=== PATIENT | male | born 1980 | race Caucasian/White ===

== ENCOUNTER 2016-05-09 00:28 | Inpatient (IN) | payer OTHER ==
--- NOTE | 2016-05-09 00:56 | HP ---
COWS - Scale Resting Pulse: 0= [place] 80 or Below Sweatin=Flushed/Facial Moisture Restless Observation: 5= Unable to Sit Still Pupil Size: 1= Pupils >than Normal Bone or Joint Aches: 4=Acute Joint/Muscle Pain Runny Nose/ Eye Tearin= Nasal Congestion GI Upset > 30mins: 0= None Tremor Observation: 2= Slight Tremor Visible Yawning Observation: 0= None Anxiety or Irritability: 4=Extreme Anxiety Goose Flesh Skin: 0=Smooth Skin COWS Score: 19 CIWA Score - CIWA Score Nausea/Vomitin-No Nausea/No Vomiting Muscle Tremors: 3 Anxiety: 6 Agitation: 6 Paroxysmal Sweats: 1-Minimal Palms Moist Orientation: 1-Uncertain about Date Tacttile Disturbances: 0-None Auditory Disturbances: 0-None Visual Disturbances: 0-None Headache: 0-None Present CIWA-Ar Total Score: 17 Admission ROS BHS - HPI Chief Complaint: C/O WITHDRAWAL SX'S. SEEKING DETOX TXMENT Allergies/Adverse Reactions: Allergies Allergy/AdvReac Type Severity Reaction Status Date / Time No Known Allergies Allergy Verified 05/09/16 00:51 History of Present Illness: 35 Y.O. MALE WITH H/O POLYSUBSTANCE ABUSE ADMITTED TO DETOX FOR ALCOHOLISM, OPI , BZO. CLIENT IS KNOWN TO [facility]. REPORTS LONGEST LONGEST CLEAN TIME 1 YEAR. Exam Limitations: No Limitations - Ebola screening Have you traveled outside of the country in the last 21 days: No Have you had contact with anyone from an Ebola affected area: No Have you been sick,other than usual withdrawal symptoms: No Do you have a fever: No - Review of Systems Constitutional: Chills, Loss of Appetite, Malaise, Night Sweats, Changes in sleep, Unintentional Wgt. Loss EENT: reports: Nose Congestion Respiratory: reports: No Symptoms reported Cardiac: reports: No Symptoms Reported GI: reports: Poor Appetite : reports: No Symptoms Reported Musculoskeletal: reports: Back Pain, Joint Pain, Muscle Pain Integumentary: reports: No Symptoms Reported Neuro: reports: No Symptoms reported Endocrine: reports: No Symptoms Reported Hematology: reports: No Symptoms Reported Psychiatric: reports: Anxious Other Systems: Reviewed and Negative Patient History - Patient Medical History Hx Anemia: No Hx Asthma: No Hx Chronic Obstructive Pulmonary Disease (COPD): No Hx Cancer: No Hx Cardiac Disorders: No Hx Congestive Heart Failure: No Hx Hypertension: Yes (no compliant) Hx Hypercholesterolemia: No Hx Pacemaker: No HX Cerebrovascular Accident: No Hx Seizures: No Hx Dementia: No Hx Diabetes: No Hx Gastrointestinal Disorders: Yes (GERD) Hx Liver Disease: No Hx Genitourinary Disorders: No Hx Sexually Transmitted Disorders: No Hx Renal Disease (ESRD): No Hx Thyroid Disease: No Hx Human Immunodeficiency Virus (HIV): No Hx Hepatitis C: No Hx Depression: Yes Hx Suicide Attempt: No Hx Bipolar Disorder: No Hx Schizophrenia: No Other Medical History: ANXIETY, CHRONIC BACK PAIN AND JOINT PAIN - Patient Surgical History Past Surgical History: No Hx Neurologic Surgery: No Hx Cataract Extraction: No Hx Cardiac Surgery: No Hx Lung Surgery: No Hx Breast Surgery: No Hx Breast Biopsy: No Hx Abdominal Surgery: No Hx Appendectomy: No Hx Cholecystectomy: No Hx Genitourinary Surgery: No Hx Section: No Hx Orthopedic Surgery: No Anesthesia Reaction: No - PPD History Previous Implant?: Yes Documented Results: Negative w/o proof Implanted On Prior [facility] Admission?: No Date: 12/15/14 PPD to be Administered?: Yes - Smoking Cessation Smoking history: Current every day smoker Have you smoked in the past 12 months: Yes Aproximately how many cigarettes per day: 40 Hx Chewing Tobacco Use: No Initiated information on smoking cessation: Yes 'Breaking Loose' booklet given: 05/09/16 - Substance & Tx. History Hx Alcohol Use: Yes Hx Substance Use: Yes Substance Use Type: Heroin, Marijuana, Opiates (MTD), Tranquilizers (VALIUM) - Substances Abused LIQUOR/BEER Route: Oral Frequency: Daily Amount used: 2-6 PACKS Age of first use: 11 Date of Last Use: 05/07/16 HEROIN Route: Injection Frequency: Daily Amount used: 2 BUNDLES Age of first use: 27 Date of Last Use: 05/07/16 VALIUM Route: Oral Frequency: Daily Amount used: 4 MG Age of first use: 33 Date of Last Use: 05/07/16 THC Route: Smoking Frequency: Daily Amount used: 4 BLUNTS Age of first use: 11 Date of Last Use: 05/07/16 Family Disease History - Family Disease History Family History: Denies Admission Physical Exam BHS - Physical General Appearance: Yes: Appropriately Dressed, Mild Distress, Tremorous, Irritable, Anxious HEENTM: Yes: EOMI, Normocephalic, Normal Voice, LUC, Pharynx Normal, Other ( NASAL CONGESTION) Respiratory: Yes: Chest Non-Tender, Lungs Clear, Normal Breath Sounds, No Respiratory Distress, No Accessory Muscle Use Neck: Yes: No masses,lesions,Nodules, Supple, Trachea in good position Breast: Yes: Breast Exam Deferred Cardiology: Yes: Regular Rhythm, Regular Rate, S1, S2 Abdominal: Yes: Normal Bowel Sounds, Non Tender, Flat, Soft Genitourinary: Yes: Within Normal Limits Back: Yes: Normal Inspection Musculoskeletal: Yes: full range of Motion, Gait Steady Extremities: Yes: Normal Capillary Refill, Normal Range of Motion, Non-Tender, Tremors Neurological: Yes: casting machine adjuster II-XII NML intact, Alert, Motor Strength 5/5 Integumentary: Yes: Normal Color, Warm, Track [place] Lymphatic: Yes: Within Normal Limits - Diagnostic (1) Hypertension Current Visit: Yes Status: Chronic Qualifiers: Hypertension type: essential hypertension Qualified Code(s): I10 - Essential (primary) hypertension (2) Opioid dependence with withdrawal Current Visit: Yes Status: Chronic (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 Current Visit: Yes Status: Chronic (4) Chronic joint pain Current Visit: Yes Status: Chronic (5) Nicotine dependence Current Visit: Yes Status: Chronic Qualifiers: Nicotine product type: cigarettes Substance use status: uncomplicated Qualified Code(s): F17.210 - Nicotine dependence, cigarettes, uncomplicated (6) Cannabis dependence, uncomplicated Current Visit: Yes Status: Acute Cleared for Admission S - Detox or Rehab [facility] Level of Care: Medically Managed Detox Regimen/Protocol: Methadone/Valium S Breath Alcohol Content Breath Alcohol Content: 0 Vital Signs - Vital Signs Vital Signs Refused: No Temperature: 97.6 F Temperature Source: Oral Pulse Rate: 80 Respiratory Rate: 20 Blood Pressure: 135/84 BP Location: Left Arm Blood Pressure Position: Sitting - Height Height: 6 ft 3 in - Weight Weight: 119.748 kg Weight Measurement Method: Standing Scale Body Mass Index (BMI): 33.0 - Bowel Function Bowel Movement: No Urine Drug Screen - Test Device Lot Number: [id number] Expiration Date: 01/22/18 - Control Is Test Valid: Yes - Results Drug Screen Negative: No Urine Drug Screen Results: THC-Marijuana, OPI-Opiates, BZO-Benzodiazepines, MTD- Methadone, OXY-Oxycodone
[2016-05-09] MEDS ORDERED: P-EPHED 60MG/TRIPROLIDI 2.5MG TABLET PO PRN (01:12)
[2016-05-09] MEDS ORDERED: diazePAM 5 MG TABLET PO ONE (01:12)
[2016-05-09] MEDS ORDERED: ACETAMINOPHEN 325 MG TABLET (FP) PO PRN (01:12)
[2016-05-09] MEDS ORDERED: METHADONE HCL 10 MG TABLET (FOR DETOX USE ONLY) PO ONE ×3 (01:12→23:00)
[2016-05-09] MEDS ORDERED: LOPERAMIDE HCL 2 MG CAPSULE PO PRN (01:12)
[2016-05-09] MEDS ORDERED: guaiFENesin/D-METHORPHAN HB 10 ML UNIT-DOSE CUPS PO PRN (01:12)
[2016-05-09] MEDS ORDERED: MAGNESIUM HYDROX 2400MG/30ML ORAL SUSPENSION 30 ML CUP PO PRN (01:12)
[2016-05-09] MEDS ORDERED: MAGNESIUM CITRATE 300 ML BOTTLE PO PRN (01:12)
[2016-05-09] MEDS ORDERED: NICOTINE POLACRILEX 4 MG GUM BC PRN (01:12)
[2016-05-09] MEDS ORDERED: MAG HYDROX/AL HYDROX/SIMETH 30 ML UNIT-DOSE CUP PO PRN (01:12)
[2016-05-09] MEDS ORDERED: MENTHOL/PHENOL 1 EACH UD MM PRN (01:12)
[2016-05-09 01:13] VITALS: BMI 33.0
[2016-05-09] MEDS ORDERED: GABAPENTIN 400 MG CAPSULE (FP) PO SCH ×2 (01:30→06:00)
[2016-05-09] MEDS: GABAPENTIN 400 MG CAPSULE (FP) PO SCH ×4 (02:39→22:09)
[2016-05-09] MEDS: CYCLOBENZAPRINE HCL 10 MG TABLET (FP) PO PRN ×3 (05:14→22:09)
[2016-05-09] MEDS: diazePAM 5 MG TABLET PO SCH ×3 (05:14→22:08)
[2016-05-09] MEDS: cloNIDine HCL 0.1 MG TABLET PO PRN ×2 (05:14→13:26)
[2016-05-09] MEDS: PRENATAL VITAMINS W/ FOLIC ACID TABLET (FP) PO SCH (09:31)
[2016-05-09] MEDS: NICOTINE 21 MG/24 HOURS TOPICAL PATCH TD SCH (09:31)
[2016-05-09] MEDS: diazePAM 5 MG TABLET PO PRN ×2 (09:31→20:39)
[2016-05-09] MEDS: IBUPROFEN 400 MG TABLET (FP) PO PRN (10:19)
[2016-05-09 10:29] LABS: ALBUMIN 4.1 g/dl (3.4-5.0); ANION GAP 9 (8-16); CALCIUM 8.8 mg/dL (8.5-10.1); CO2 30 mmol/L (21-32); GLUCOSE,RANDOM 83 mg/dL (74-106); MCH 29.7 pg (25.7-33.7); MCHC 33.1 g/dl (32.0-35.9); MEAN CELL VOLUME 89.8 fl (80-96); MEAN PLT VOLUME 13.5 fl (7.5-11.1); PLATELET COUNT 97 K/MM3 (134-434); RDW 14.1 % (11.9-15.9); WHITE BLOOD COUNT 8.4 K/mm3 (4.0-10.0)
[2016-05-09 10:30] LABS: URINE APPEARANCE CLEAR; URINE BILIRUBIN NEGATIVE (NEGATIVE); URINE BLOOD NEGATIVE (NEGATIVE); URINE COLOR DKYELLOW; URINE GLUCOSE (UA) NEGATIVE (NEGATIVE); URINE KETONE NEGATIVE (NEGATIVE); URINE LEUK ESTERASE NEGATIVE (NEGATIVE); URINE NITRITE NEGATIVE (NEGATIVE); URINE UROBILINOGEN NEGATIVE E.U./dl (0.2-1.0)
[2016-05-09 10:32] LABS: ALK PHOS 96 U/L (45-117); BILIRUBIN,TOTAL 0.5 mg/dL (0.2-1.0); CREATININE 0.8 mg/dL (0.7-1.3); SGOT/AST 23 U/L (15-37); SGPT/ALT 38 U/L (12-78); TOT PROT 7.1 g/dl (6.4-8.2)
[2016-05-09 10:32] LABS: URINE PROTEIN 1+ (NEGATIVE)
[2016-05-09 10:35] LABS: URINE BACTERIA RARE /hpf (NONE SEEN); URINE MUCUS MANY
[2016-05-09 11:12] LABS: HIV 1 & 2 AB NEGATIVE; HIV 1 AGp24 NEGATIVE
--- NOTE | 2016-05-09 11:24 | CONSULT ---
[facility] Psychiatric Consult - Data Date of interview: 05/09/16 Admission source: [facility] Identifying data: Readmission to [facility] for this 35 y/o male seeking detoxification treatment for heroin,marijuana and benzodiazepine (valium ) dependence.Patient is single,a father of one,domiciled,unemployed and dependent on relatives for financial support. Substance Abuse History: - Smoking Cessation. Smoking history: Current every day smoker. Have you smoked in the past 12 months: Yes. Aproximately how many cigarettes per day: 40. Hx Chewing Tobacco Use: No. Initiated information on smoking cessation: Yes. 'Breaking Loose' booklet given: 05/09/16. - Substance & Tx. History. Hx Alcohol Use: Yes. Hx Substance Use: Yes. Substance Use Type : Heroin, Marijuana, Opiates (MTD), Tranquilizers (VALIUM). - Substances Abused. LIQUOR/BEER. Route: Oral. Frequency: Daily. Amount used: 2-6 PACKS. Age of first use: 11. Date of Last Use: 05/07/16. HEROIN. Route: Injection. Frequency: Daily. Amount used: 2 BUNDLES. Age of first use: 27. Date of Last Use: 05/07/16. VALIUM. Route: Oral. Frequency: Daily. Amount used: 4 MG. Age of first use: 33. Date of Last Use: 05/07/16. THC. Route: Smoking. Frequency: Daily. Amount used: 4 BLUNTS. Age of first use: 11. Date of Last Use: 05/07/16. Confirmed by patient. Medical History: Hypertension. Psychiatric History: No history of psychiatric hospitalizations.Diagnosed with MDD,Bipolar Disorder.Started psychiatric treatment in 2006 during incarceration.Prescribed wellbutrin XL 450 mg/day (by a primary care doctor).Mr Garcia denies history of suicide attempts. Physical/Sexual Abuse/Trauma History: Patient denies. Additional Comment: Urine Drug Screen Results: THC-Marijuana, OPI-Opiates, BZO- Benzodiazepines, MTD-Methadone, OXY-Oxycodone Mental Status Exam - Mental Status Exam Alert and Oriented to: Time, Place, Person Cognitive Function: Good Patient Appearance: Well Groomed (obese) Mood: Irritable Affect: Mood Congruent Patient Behavior: Passive, Sedated, Fatigued, Cooperative (superficially) Speech Pattern: Delayed, Slurred Voice Loudness: Normal Thought Process: Goal Oriented Thought Disorder: Not Present Hallucinations: Denies Suicidal Ideation: Denies Homicidal Ideation: Denies Insight/Judgement: Poor Sleep: Fair Appetite: Good Muscle strength/Tone: Normal Gait/Station: Normal Psychiatric Findings - Problem List ([place] 1, 2,3) (1) Opioid dependence with withdrawal Current Visit: Yes Status: Chronic (2) Cannabis dependence, uncomplicated Current Visit: Yes Status: Acute (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 Current Visit: Yes Status: Chronic (4) Nicotine dependence Current Visit: Yes Status: Acute Qualifiers: Nicotine product type: cigarettes Substance use status: uncomplicated Qualified Code(s): F17.210 - Nicotine dependence, cigarettes, uncomplicated (5) Substance induced mood disorder Current Visit: Yes Status: Acute (6) Depressive disorder Current Visit: Yes Status: Chronic (7) Chronic joint pain Current Visit: Yes Status: Chronic (8) Hypertension Current Visit: Yes Status: Chronic Qualifiers: Hypertension type: essential hypertension Qualified Code(s): I10 - Essential (primary) hypertension - Initial Treatment Plan Initial Treatment Plan: Psychoeducation.Detoxification.Wellbutrin XL 450 mg po daily.Side effects/benefits discussed with the patient.Agreement given.Observation.Dose confirmed by review of pharmacy claims.
--- NOTE | 2016-05-09 14:16 | PN ---
S CIWA - CIWA Score Nausea/Vomitin-Mild Nausea/No Vomiting Muscle Tremors: 4-Moderate,w/Arms Extend Anxiety: 4-Mod. Anxious/Guarded Agitation: 3 Paroxysmal Sweats: 3 Orientation: 0-Oriented Tacttile Disturbances: 2-Mild Itch/Numbness/Burn Auditory Disturbances: 0-None Visual Disturbances: 2-Mild Sensitivity Headache: 0-None Present CIWA-Ar Total Score: 19 S COWS - Scale Resting Pulse: 1= [place] 81-100 Sweatin= Chills/Flushing Restless Observation: 1= Difficult to Sit Still Pupil Size: 0= Normal to Room Light Bone or Joint Aches: 2= Severe Diffuse Aches Runny Nose/ Eye Tearin= None GI Upset > 30mins: 0= None Tremor Observation of Outstretched Hands: 2= Slight Tremor Visible Yawning Observation: 0= None Anxiety or Irritability: 2=Irritable/Anxious Goose Flesh Skin: 3=Piloerection COWS Score: 12 S Progress Note (SOAP) Subjective: Body Aches, Anxious, Cold Sensation, Sweating, Interrupted sleep. Objective: PT. A & O X 3, OBSERVED AMBULATING ON UNIT. 05/09/16 14:14 Vital Signs Temperature 97.6 F 05/09/16 10:23 Pulse Rate 87 05/09/16 10:23 Respiratory Rate 20 05/09/16 10:23 Blood Pressure 119/67 05/09/16 10:23 O2 Sat by Pulse Oximetry (%) Laboratory Last Values WBC 8.4 K/mm3 (4.0-10.0) 05/09/16 07:30 RBC 5.25 M/mm3 (4.00-5.60) 05/09/16 07:30 Hgb 15.6 GM/dL (11.7-16.9) D 05/09/16 07:30 Hct 47.1 % (35.4-49) 05/09/16 07:30 MCV 89.8 fl (80-96) 05/09/16 07:30 MCHC 33.1 g/dl (32.0-35.9) 05/09/16 07:30 RDW 14.1 % (11.9-15.9) 05/09/16 07:30 Plt Count 97 K/MM3 (134-434) L 05/09/16 07:30 MPV 13.5 fl (7.5-11.1) H 05/09/16 07:30 Sodium 140 mmol/L (136-145) 05/09/16 07:30 Potassium 4.1 mmol/L (3.5-5.1) 05/09/16 07:30 Chloride 101 mmol/L (98-107) 05/09/16 07:30 Carbon Dioxide 30 mmol/L (21-32) 05/09/16 07:30 Anion Gap 9 (8-16) 05/09/16 07:30 BUN 14 mg/dL (7-18) D 05/09/16 07:30 Creatinine 0.8 mg/dL (0.7-1.3) D 05/09/16 07:30 Creat Clearance w eGFR > 60 (>60) 05/09/16 07:30 Random Glucose 83 mg/dL (74-106) D 05/09/16 07:30 Calcium 8.8 mg/dL (8.5-10.1) 05/09/16 07:30 Total Bilirubin 0.5 mg/dL (0.2-1.0) D 05/09/16 07:30 AST 23 U/L (15-37) D 05/09/16 07:30 ALT 38 U/L (12-78) D 05/09/16 07:30 Alkaline Phosphatase 96 U/L (45-117) 05/09/16 07:30 Total Protein 7.1 g/dl (6.4-8.2) 05/09/16 07:30 Albumin 4.1 g/dl (3.4-5.0) 05/09/16 07:30 Urine Color Dkyellow 05/09/16 08:30 Urine Appearance Clear 05/09/16 08:30 Urine pH 5.0 (5.0-8.0) D 05/09/16 08:30 Ur Specific [place] 1.031 (1.001-1.035) 05/09/16 08:30 Urine Protein 1+ (NEGATIVE) H 05/09/16 08:30 Urine Glucose (UA) Negative (NEGATIVE) 05/09/16 08:30 Urine Ketones Negative (NEGATIVE) 05/09/16 08:30 Urine Blood Negative (NEGATIVE) 05/09/16 08:30 Urine Nitrite Negative (NEGATIVE) 05/09/16 08:30 Urine Bilirubin Negative (NEGATIVE) 05/09/16 08:30 Urine Urobilinogen Negative E.U./dl (0.2-1.0) 05/09/16 08:30 Ur Leukocyte Esterase Negative (NEGATIVE) 05/09/16 08:30 Urine RBC None /hpf (0-3) 05/09/16 08:30 Urine WBC None /hpf (3-5) 05/09/16 08:30 Ur Epithelial Cells Rare /hpf (FEW) 05/09/16 08:30 Urine Bacteria Rare /hpf (NONE SEEN) 05/09/16 08:30 Urine Mucus Many 05/09/16 08:30 RPR Titer Nonreactive (NONREACTIVE) 05/09/16 07:30 HIV 1&2 Antibody Screen Negative 05/09/16 07:30 HIV P24 Antigen Negative 05/09/16 07:30 LABS NOTED. Assessment: 05/09/16 14:15 WITHDRAWAL SYMPTOMS. Plan: CONTINUE DETOX. PT. ADVISED TO FOLLOW-UP WITH [facility] / REHAB MEDICAL PROVIDER AFTER DISCHARGE FROM DETOX FOR GENERAL MEDICAL ASSESSMENT AND FOR ABNORMAL LAB VALUES.
[2016-05-09] MEDS: THIAMINE HCL 100 MG TABLET (FP) PO SCH (22:08)
[2016-05-09] MEDS: diphenhydrAMINE HCL 50 MG CAPSULE PO PRN (22:09)
[2016-05-10] MEDS: diazePAM 5 MG TABLET PO SCH ×3 (05:12→22:32)
[2016-05-10] MEDS: GABAPENTIN 400 MG CAPSULE (FP) PO SCH ×3 (05:12→22:32)
[2016-05-10] MEDS: PRENATAL VITAMINS W/ FOLIC ACID TABLET (FP) PO SCH (09:59)
[2016-05-10] MEDS: diazePAM 5 MG TABLET PO PRN (10:00)
[2016-05-10] MEDS ORDERED: METHADONE HCL 10 MG TABLET (FOR DETOX USE ONLY) PO SCH (10:00)
[2016-05-10] MEDS: NICOTINE 21 MG/24 HOURS TOPICAL PATCH TD SCH (10:00)
--- NOTE | 2016-05-10 15:59 | PN ---
S CIWA - CIWA Score Nausea/Vomitin-No Nausea/No Vomiting Muscle Tremors: 4-Moderate,w/Arms Extend Anxiety: 4-Mod. Anxious/Guarded Agitation: 4-Moderately Restless Paroxysmal Sweats: 3 Orientation: 0-Oriented Tacttile Disturbances: 3-Moderate Itch/Numb/Burn Auditory Disturbances: 0-None Visual Disturbances: 2-Mild Sensitivity Headache: 0-None Present CIWA-Ar Total Score: 20 BHS COWS - Scale Resting Pulse: 0= [place] 80 or Below Sweatin= Chills/Flushing Restless Observation: 1= Difficult to Sit Still Pupil Size: 0= Normal to Room Light Bone or Joint Aches: 2= Severe Diffuse Aches Runny Nose/ Eye Tearin= None GI Upset > 30mins: 1= Stomach Cramp Tremor Observation of Outstretched Hands: 2= Slight Tremor Visible Yawning Observation: 1= 1-2x During Session Anxiety or Irritability: 2=Irritable/Anxious Goose Flesh Skin: 3=Piloerection COWS Score: 13 BHS Progress Note (SOAP) Subjective: Sweating, Body Aches, Anxious, Interrupted sleep, Fatigue. Objective: PT. A & O X 3, OBSERVED AMBULATING ON UNIT. 05/10/16 15:58 Vital Signs Temperature 96.9 F L 05/10/16 13:08 Pulse Rate 80 05/10/16 13:08 Respiratory Rate 18 05/10/16 13:08 Blood Pressure 108/75 05/10/16 13:08 O2 Sat by Pulse Oximetry (%) Laboratory Last Values WBC 8.4 K/mm3 (4.0-10.0) 05/09/16 07:30 RBC 5.25 M/mm3 (4.00-5.60) 05/09/16 07:30 Hgb 15.6 GM/dL (11.7-16.9) D 05/09/16 07:30 Hct 47.1 % (35.4-49) 05/09/16 07:30 MCV 89.8 fl (80-96) 05/09/16 07:30 MCHC 33.1 g/dl (32.0-35.9) 05/09/16 07:30 RDW 14.1 % (11.9-15.9) 05/09/16 07:30 Plt Count 97 K/MM3 (134-434) L 05/09/16 07:30 MPV 13.5 fl (7.5-11.1) H 05/09/16 07:30 Sodium 140 mmol/L (136-145) 05/09/16 07:30 Potassium 4.1 mmol/L (3.5-5.1) 05/09/16 07:30 Chloride 101 mmol/L (98-107) 05/09/16 07:30 Carbon Dioxide 30 mmol/L (21-32) 05/09/16 07:30 Anion Gap 9 (8-16) 05/09/16 07:30 BUN 14 mg/dL (7-18) D 05/09/16 07:30 Creatinine 0.8 mg/dL (0.7-1.3) D 05/09/16 07:30 Creat Clearance w eGFR > 60 (>60) 05/09/16 07:30 Random Glucose 83 mg/dL (74-106) D 05/09/16 07:30 Calcium 8.8 mg/dL (8.5-10.1) 05/09/16 07:30 Total Bilirubin 0.5 mg/dL (0.2-1.0) D 05/09/16 07:30 AST 23 U/L (15-37) D 05/09/16 07:30 ALT 38 U/L (12-78) D 05/09/16 07:30 Alkaline Phosphatase 96 U/L (45-117) 05/09/16 07:30 Total Protein 7.1 g/dl (6.4-8.2) 05/09/16 07:30 Albumin 4.1 g/dl (3.4-5.0) 05/09/16 07:30 Urine Color Dkyellow 05/09/16 08:30 Urine Appearance Clear 05/09/16 08:30 Urine pH 5.0 (5.0-8.0) D 05/09/16 08:30 Ur Specific [place] 1.031 (1.001-1.035) 05/09/16 08:30 Urine Protein 1+ (NEGATIVE) H 05/09/16 08:30 Urine Glucose (UA) Negative (NEGATIVE) 05/09/16 08:30 Urine Ketones Negative (NEGATIVE) 05/09/16 08:30 Urine Blood Negative (NEGATIVE) 05/09/16 08:30 Urine Nitrite Negative (NEGATIVE) 05/09/16 08:30 Urine Bilirubin Negative (NEGATIVE) 05/09/16 08:30 Urine Urobilinogen Negative E.U./dl (0.2-1.0) 05/09/16 08:30 Ur Leukocyte Esterase Negative (NEGATIVE) 05/09/16 08:30 Urine RBC None /hpf (0-3) 05/09/16 08:30 Urine WBC None /hpf (3-5) 05/09/16 08:30 Ur Epithelial Cells Rare /hpf (FEW) 05/09/16 08:30 Urine Bacteria Rare /hpf (NONE SEEN) 05/09/16 08:30 Urine Mucus Many 05/09/16 08:30 RPR Titer Nonreactive (NONREACTIVE) 05/09/16 07:30 HIV 1&2 Antibody Screen Negative 05/09/16 07:30 HIV P24 Antigen Negative 05/09/16 07:30 LABS NOTED. Assessment: 05/10/16 15:59 WITHDRAWAL SYMPTOMS. Plan: CONTINUE DETOX. ADVISED PATIENT TO FOLLOW-UP WITH [facility] / REHAB MEDICAL PROVIDER AFTER DISCHARGE FROM DETOX FOR GENERAL MEDICAL ASSESSMENT AND FOR ANY ABNORMAL ADMISSION LAB VALUES.
[2016-05-10] MEDS: hydrOXYzine PAMOATE 50 MG CAPSULE (FP) PO PRN (18:25)
[2016-05-10] MEDS: cloNIDine HCL 0.1 MG TABLET PO PRN (20:04)
[2016-05-10] MEDS: THIAMINE HCL 100 MG TABLET (FP) PO SCH (22:31)
[2016-05-10] MEDS: diphenhydrAMINE HCL 50 MG CAPSULE PO PRN (22:33)
[2016-05-10] MEDS: CYCLOBENZAPRINE HCL 10 MG TABLET (FP) PO PRN (22:36)
[2016-05-11] MEDS: GABAPENTIN 400 MG CAPSULE (FP) PO SCH ×3 (05:47→22:10)
[2016-05-11] MEDS: diazePAM 5 MG TABLET PO PRN ×3 (05:48→19:18)
[2016-05-11] MEDS: CYCLOBENZAPRINE HCL 10 MG TABLET (FP) PO PRN ×2 (05:49→19:18)
--- NOTE | 2016-05-11 09:38 | PN ---
S Progress Note (SOAP) Subjective: Body Aches, Interrupted Sleep, Fatigued, Report feeling better Objective: Vital Signs Temperature 96.4 F L 05/11/16 06:25 Pulse Rate 77 05/11/16 06:25 Respiratory Rate 18 05/11/16 06:25 Blood Pressure 104/64 05/11/16 06:25 O2 Sat by Pulse Oximetry (%) Laboratory Last Values WBC 8.4 K/mm3 (4.0-10.0) 05/09/16 07:30 RBC 5.25 M/mm3 (4.00-5.60) 05/09/16 07:30 Hgb 15.6 GM/dL (11.7-16.9) D 05/09/16 07:30 Hct 47.1 % (35.4-49) 05/09/16 07:30 MCV 89.8 fl (80-96) 05/09/16 07:30 MCHC 33.1 g/dl (32.0-35.9) 05/09/16 07:30 RDW 14.1 % (11.9-15.9) 05/09/16 07:30 Plt Count 97 K/MM3 (134-434) L 05/09/16 07:30 MPV 13.5 fl (7.5-11.1) H 05/09/16 07:30 Sodium 140 mmol/L (136-145) 05/09/16 07:30 Potassium 4.1 mmol/L (3.5-5.1) 05/09/16 07:30 Chloride 101 mmol/L (98-107) 05/09/16 07:30 Carbon Dioxide 30 mmol/L (21-32) 05/09/16 07:30 Anion Gap 9 (8-16) 05/09/16 07:30 BUN 14 mg/dL (7-18) D 05/09/16 07:30 Creatinine 0.8 mg/dL (0.7-1.3) D 05/09/16 07:30 Creat Clearance w eGFR > 60 (>60) 05/09/16 07:30 Random Glucose 83 mg/dL (74-106) D 05/09/16 07:30 Calcium 8.8 mg/dL (8.5-10.1) 05/09/16 07:30 Total Bilirubin 0.5 mg/dL (0.2-1.0) D 05/09/16 07:30 AST 23 U/L (15-37) D 05/09/16 07:30 ALT 38 U/L (12-78) D 05/09/16 07:30 Alkaline Phosphatase 96 U/L (45-117) 05/09/16 07:30 Total Protein 7.1 g/dl (6.4-8.2) 05/09/16 07:30 Albumin 4.1 g/dl (3.4-5.0) 05/09/16 07:30 Urine Color Dkyellow 05/09/16 08:30 Urine Appearance Clear 05/09/16 08:30 Urine pH 5.0 (5.0-8.0) D 05/09/16 08:30 Ur Specific [place] 1.031 (1.001-1.035) 05/09/16 08:30 Urine Protein 1+ (NEGATIVE) H 05/09/16 08:30 Urine Glucose (UA) Negative (NEGATIVE) 05/09/16 08:30 Urine Ketones Negative (NEGATIVE) 05/09/16 08:30 Urine Blood Negative (NEGATIVE) 05/09/16 08:30 Urine Nitrite Negative (NEGATIVE) 05/09/16 08:30 Urine Bilirubin Negative (NEGATIVE) 05/09/16 08:30 Urine Urobilinogen Negative E.U./dl (0.2-1.0) 05/09/16 08:30 Ur Leukocyte Esterase Negative (NEGATIVE) 05/09/16 08:30 Urine RBC None /hpf (0-3) 05/09/16 08:30 Urine WBC None /hpf (3-5) 05/09/16 08:30 Ur Epithelial Cells Rare /hpf (FEW) 05/09/16 08:30 Urine Bacteria Rare /hpf (NONE SEEN) 05/09/16 08:30 Urine Mucus Many 05/09/16 08:30 RPR Titer Nonreactive (NONREACTIVE) 05/09/16 07:30 HIV 1&2 Antibody Screen Negative 05/09/16 07:30 HIV P24 Antigen Negative 05/09/16 07:30 Vitals and Labs noted Assessment: Withdrawal Symptoms Plan: Continue Detox
[2016-05-11] MEDS: METHADONE HCL 5 MG TABLET (FOR DETOX USE ONLY) PO SCH (10:18)
[2016-05-11] MEDS: diazePAM 5 MG TABLET PO SCH ×2 (10:18→22:10)
[2016-05-11] MEDS: NICOTINE 21 MG/24 HOURS TOPICAL PATCH TD SCH (10:18)
[2016-05-11] MEDS: PRENATAL VITAMINS W/ FOLIC ACID TABLET (FP) PO SCH (10:18)
--- NOTE | 2016-05-11 11:41 | EKG ---
Test Reason : Blood Pressure : / mmHG Vent. Rate : 075 BPM Atrial Rate : 075 BPM P-R Int : 144 ms QRS Dur : 108 ms QT Int : 410 ms P-R-T Axes : 069 065 027 degrees QTc Int : 457 ms NORMAL SINUS RHYTHM NORMAL ECG NO PREVIOUS ECGS AVAILABLE Confirmed by TOÑA CRUZ MD ([id number]) on 05/11/2016 11:41:34 AM Referred By: Confirmed By:TOÑA CRUZ MD
[2016-05-11] MEDS: IBUPROFEN 400 MG TABLET (FP) PO PRN (12:53)
[2016-05-11] MEDS: cloNIDine HCL 0.1 MG TABLET PO PRN (19:18)
[2016-05-11] MEDS: THIAMINE HCL 100 MG TABLET (FP) PO SCH (22:10)
[2016-05-11] MEDS: diphenhydrAMINE HCL 50 MG CAPSULE PO PRN (22:10)
[2016-05-12] MEDS: hydrOXYzine PAMOATE 50 MG CAPSULE (FP) PO PRN ×2 (03:36→14:55)
[2016-05-12] MEDS: CYCLOBENZAPRINE HCL 10 MG TABLET (FP) PO PRN ×3 (03:36→17:25)
[2016-05-12] MEDS: GABAPENTIN 400 MG CAPSULE (FP) PO SCH ×3 (05:44→22:14)
[2016-05-12] MEDS: cloNIDine HCL 0.1 MG TABLET PO PRN (05:45)
--- NOTE | 2016-05-12 08:31 | PN ---
BHS Progress Note (SOAP) Subjective: Sweating,interrupted sleep,restless,muscle aches. Objective: 05/12/16 08:30 Vital Signs - 8 hr 05/12/16 05/12/16 03:28 06:18 Temperature 97.4 F L Pulse Rate 77 Respiratory 18 16 Rate Blood Pressure 107/75 Laboratory Last Values WBC 8.4 K/mm3 (4.0-10.0) 05/09/16 07:30 RBC 5.25 M/mm3 (4.00-5.60) 05/09/16 07:30 Hgb 15.6 GM/dL (11.7-16.9) D 05/09/16 07:30 Hct 47.1 % (35.4-49) 05/09/16 07:30 MCV 89.8 fl (80-96) 05/09/16 07:30 MCHC 33.1 g/dl (32.0-35.9) 05/09/16 07:30 RDW 14.1 % (11.9-15.9) 05/09/16 07:30 Plt Count 97 K/MM3 (134-434) L 05/09/16 07:30 MPV 13.5 fl (7.5-11.1) H 05/09/16 07:30 Sodium 140 mmol/L (136-145) 05/09/16 07:30 Potassium 4.1 mmol/L (3.5-5.1) 05/09/16 07:30 Chloride 101 mmol/L (98-107) 05/09/16 07:30 Carbon Dioxide 30 mmol/L (21-32) 05/09/16 07:30 Anion Gap 9 (8-16) 05/09/16 07:30 BUN 14 mg/dL (7-18) D 05/09/16 07:30 Creatinine 0.8 mg/dL (0.7-1.3) D 05/09/16 07:30 Creat Clearance w eGFR > 60 (>60) 05/09/16 07:30 Random Glucose 83 mg/dL (74-106) D 05/09/16 07:30 Calcium 8.8 mg/dL (8.5-10.1) 05/09/16 07:30 Total Bilirubin 0.5 mg/dL (0.2-1.0) D 05/09/16 07:30 AST 23 U/L (15-37) D 05/09/16 07:30 ALT 38 U/L (12-78) D 05/09/16 07:30 Alkaline Phosphatase 96 U/L (45-117) 05/09/16 07:30 Total Protein 7.1 g/dl (6.4-8.2) 05/09/16 07:30 Albumin 4.1 g/dl (3.4-5.0) 05/09/16 07:30 Urine Color Dkyellow 05/09/16 08:30 Urine Appearance Clear 05/09/16 08:30 Urine pH 5.0 (5.0-8.0) D 05/09/16 08:30 Ur Specific [place] 1.031 (1.001-1.035) 05/09/16 08:30 Urine Protein 1+ (NEGATIVE) H 05/09/16 08:30 Urine Glucose (UA) Negative (NEGATIVE) 05/09/16 08:30 Urine Ketones Negative (NEGATIVE) 05/09/16 08:30 Urine Blood Negative (NEGATIVE) 05/09/16 08:30 Urine Nitrite Negative (NEGATIVE) 05/09/16 08:30 Urine Bilirubin Negative (NEGATIVE) 05/09/16 08:30 Urine Urobilinogen Negative E.U./dl (0.2-1.0) 05/09/16 08:30 Ur Leukocyte Esterase Negative (NEGATIVE) 05/09/16 08:30 Urine RBC None /hpf (0-3) 05/09/16 08:30 Urine WBC None /hpf (3-5) 05/09/16 08:30 Ur Epithelial Cells Rare /hpf (FEW) 05/09/16 08:30 Urine Bacteria Rare /hpf (NONE SEEN) 05/09/16 08:30 Urine Mucus Many 05/09/16 08:30 RPR Titer Nonreactive (NONREACTIVE) 05/09/16 07:30 HIV 1&2 Antibody Screen Negative 05/09/16 07:30 HIV P24 Antigen Negative 05/09/16 07:30 labs noted Assessment: 05/12/16 08:30 withdrawal sx. Plan: Continue detox
[2016-05-12] MEDS: PRENATAL VITAMINS W/ FOLIC ACID TABLET (FP) PO SCH (10:26)
[2016-05-12] MEDS: cloNIDine HCL 0.1 MG TABLET PO SCH ×2 (10:27→22:15)
[2016-05-12] MEDS: diazePAM 5 MG TABLET PO SCH ×2 (10:27→22:14)
[2016-05-12] MEDS: NICOTINE 21 MG/24 HOURS TOPICAL PATCH TD SCH (10:27)
[2016-05-12] MEDS: METHADONE HCL 5 MG TABLET (FOR DETOX USE ONLY) PO SCH (10:27)
[2016-05-12] MEDS: IBUPROFEN 400 MG TABLET (FP) PO PRN (17:26)
[2016-05-12] MEDS: THIAMINE HCL 100 MG TABLET (FP) PO SCH (22:14)
[2016-05-12] MEDS: diphenhydrAMINE HCL 50 MG CAPSULE PO PRN (22:15)
[2016-05-13] MEDS: GABAPENTIN 400 MG CAPSULE (FP) PO SCH (05:56)
[2016-05-13] MEDS: CYCLOBENZAPRINE HCL 10 MG TABLET (FP) PO PRN (05:59)
[2016-05-13 06:18] VITALS: BP 99/67; PULSE 87; TEMP 96.7
[2016-05-13] MEDS: cloNIDine HCL 0.1 MG TABLET PO SCH (09:25)
[2016-05-13] MEDS: PRENATAL VITAMINS W/ FOLIC ACID TABLET (FP) PO SCH (09:25)
[2016-05-13] MEDS: NICOTINE 21 MG/24 HOURS TOPICAL PATCH TD SCH (09:25)
[2016-05-13] MEDS ORDERED: diazePAM 5 MG TABLET PO SCH (10:00)
[2016-05-13] MEDS ORDERED: METHADONE HCL 5 MG TABLET (FOR DETOX USE ONLY) PO SCH (10:00)
[2016-05-13] MEDS ORDERED: METHADONE HCL 10 MG TABLET (FOR DETOX USE ONLY) PO SCH (10:00)
--- NOTE | 2016-05-13 10:25 | DS ---
[facility] Detox Discharge Summary Admission Date: 05/09/16 Discharge Date: 05/13/16 - History Present History: Cannabis Dependence, Opioid Dependence, Sedative Dependence Pertinent Past History: Depression - Physical Exam Results Vital Signs: Vital Signs Temperature 96.7 F L 05/13/16 06:17 Pulse Rate 87 05/13/16 06:17 Respiratory Rate 16 05/13/16 06:17 Blood Pressure 99/67 05/13/16 06:17 O2 Sat by Pulse Oximetry (%) Pertinent Admission Physical Exam Findings: Withdrawal sx. Laboratory Last Values WBC 8.4 K/mm3 (4.0-10.0) 05/09/16 07:30 RBC 5.25 M/mm3 (4.00-5.60) 05/09/16 07:30 Hgb 15.6 GM/dL (11.7-16.9) D 05/09/16 07:30 Hct 47.1 % (35.4-49) 05/09/16 07:30 MCV 89.8 fl (80-96) 05/09/16 07:30 MCHC 33.1 g/dl (32.0-35.9) 05/09/16 07:30 RDW 14.1 % (11.9-15.9) 05/09/16 07:30 Plt Count 97 K/MM3 (134-434) L 05/09/16 07:30 MPV 13.5 fl (7.5-11.1) H 05/09/16 07:30 Sodium 140 mmol/L (136-145) 05/09/16 07:30 Potassium 4.1 mmol/L (3.5-5.1) 05/09/16 07:30 Chloride 101 mmol/L (98-107) 05/09/16 07:30 Carbon Dioxide 30 mmol/L (21-32) 05/09/16 07:30 Anion Gap 9 (8-16) 05/09/16 07:30 BUN 14 mg/dL (7-18) D 05/09/16 07:30 Creatinine 0.8 mg/dL (0.7-1.3) D 05/09/16 07:30 Creat Clearance w eGFR > 60 (>60) 05/09/16 07:30 Random Glucose 83 mg/dL (74-106) D 05/09/16 07:30 Calcium 8.8 mg/dL (8.5-10.1) 05/09/16 07:30 Total Bilirubin 0.5 mg/dL (0.2-1.0) D 05/09/16 07:30 AST 23 U/L (15-37) D 05/09/16 07:30 ALT 38 U/L (12-78) D 05/09/16 07:30 Alkaline Phosphatase 96 U/L (45-117) 05/09/16 07:30 Total Protein 7.1 g/dl (6.4-8.2) 05/09/16 07:30 Albumin 4.1 g/dl (3.4-5.0) 05/09/16 07:30 Urine Color Dkyellow 05/09/16 08:30 Urine Appearance Clear 05/09/16 08:30 Urine pH 5.0 (5.0-8.0) D 05/09/16 08:30 Ur Specific [place] 1.031 (1.001-1.035) 05/09/16 08:30 Urine Protein 1+ (NEGATIVE) H 05/09/16 08:30 Urine Glucose (UA) Negative (NEGATIVE) 05/09/16 08:30 Urine Ketones Negative (NEGATIVE) 05/09/16 08:30 Urine Blood Negative (NEGATIVE) 05/09/16 08:30 Urine Nitrite Negative (NEGATIVE) 05/09/16 08:30 Urine Bilirubin Negative (NEGATIVE) 05/09/16 08:30 Urine Urobilinogen Negative E.U./dl (0.2-1.0) 05/09/16 08:30 Ur Leukocyte Esterase Negative (NEGATIVE) 05/09/16 08:30 Urine RBC None /hpf (0-3) 05/09/16 08:30 Urine WBC None /hpf (3-5) 05/09/16 08:30 Ur Epithelial Cells Rare /hpf (FEW) 05/09/16 08:30 Urine Bacteria Rare /hpf (NONE SEEN) 05/09/16 08:30 Urine Mucus Many 05/09/16 08:30 RPR Titer Nonreactive (NONREACTIVE) 05/09/16 07:30 HIV 1&2 Antibody Screen Negative 05/09/16 07:30 HIV P24 Antigen Negative 05/09/16 07:30 labs noted - Treatment Hospital Course: Detox Protocol Followed, Detoxed Safely, Responded well, Discharged Condition Good, Rehab Referral Accepted Patient has Accepted a Rehab Referral to: [facility] - Medication Discharge Medications: Ambulatory Orders Bupropion HCl [Wellbutrin Xl -] 450 mg PO DAILY 05/09/16 Gabapentin 1,200 mg PO TID 05/09/16 Omeprazole 20 mg PO DAILY 05/09/16 Bupropion HCl [Wellbutrin Xl -] 450 mg PO DAILY #60 tab.sr.24h 05/10/16 - Diagnosis (1) Nicotine dependence Status: Acute Qualifiers: Nicotine product type: cigarettes Substance use status: uncomplicated Qualified Code(s): F17.210 - Nicotine dependence, cigarettes, uncomplicated (2) Substance induced mood disorder Status: Acute (3) Depressive disorder Status: Chronic (4) Opioid dependence with withdrawal Status: Acute (5) Sedative/hypnotic withdrawal without complication Status: Acute - AMA Did Patient Leave Against Medical Advice: No
[2016-05-14] MEDS ORDERED: METHADONE HCL 5 MG TABLET (FOR DETOX USE ONLY) PO SCH (06:00)
== END 2016-05-13 09:32 | disposition home or self-care (01) | DRG 773 ==
LOC: YASAS 00:28 → Y3N 00:59
PROVIDERS: ADMIT Internal Medicine Addiction Medicine; ATTEND Internal Medicine Addiction Medicine
PROC: HZ2ZZZZ Detoxification Services for Substance Abuse Treatment (ICD-10-PCS; principal; 2016-05-13)
DX: F11.23 Opioid dependence with withdrawal (principal); F13.230 Sedative, hypnotic or anxiolytic dependence with withdrawal, uncomplicated; F17.210 Nicotine dependence, cigarettes, uncomplicated; F19.24 Other psychoactive substance dependence with psychoactive substance-induced mood disorder; F33.9 Major depressive disorder, recurrent, unspecified; I10 Essential (primary) hypertension; M25.50 Pain in unspecified joint; G89.29 Other chronic pain
CPT/HCPCS: 36415; 80053; 81003; 81015; 85027; 86593; 87389; 93005; 93010

== ENCOUNTER 2016-07-06 14:53 | Inpatient (IN) | payer OTHER ==
[2016-07-06 15:14] VITALS: BMI 30.6
--- NOTE | 2016-07-06 15:43 | HP ---
COWS - Scale Resting Pulse: 1= [place] 81-100 Sweatin=Flushed/Facial Moisture Restless Observation: 3= Extraneous Movement Pupil Size: 2= Moderately Dilated Bone or Joint Aches: 2= Severe Diffuse Aches Runny Nose/ Eye Tearin= Runny Nose/Eyes GI Upset > 30mins: 3= Vomiting/Diarrhea Tremor Observation: 2= Slight Tremor Visible Yawning Observation: 2= >3x During Session Anxiety or Irritability: 2=Irritable/Anxious Goose Flesh Skin: 0=Smooth Skin COWS Score: 21 CIWA Score - CIWA Score Nausea/Vomitin Muscle Tremors: 3 Anxiety: 3 Agitation: 3 Paroxysmal Sweats: 1-Minimal Palms Moist Orientation: 0-Oriented Tacttile Disturbances: 2-Mild Itch/Numbness/Burn Auditory Disturbances: 2-Mild Harshness/Frighten Visual Disturbances: 2-Mild Sensitivity Headache: 2-Mild CIWA-Ar Total Score: 21 Admission ROS BHS - HPI Chief Complaint: I NEED HELP TO STOP USING HEROIN Allergies/Adverse Reactions: Allergies Allergy/AdvReac Type Severity Reaction Status Date / Time No Known Allergies Allergy Verified 07/08/16 00:47 History of Present Illness: THIS 35 YEARS OLD MALE PATIENT SEEKING DETOX FROM HEROIN,SEVERAL ADMISSIONS BEFORE,LAST DETOX [facility] 05/09/16 TO 05/13/16 SEVERAL ADMISSIONS IN THE PAST BUT RELAPSED DEPRESSION LONGEST PERIOD OF SOBRIETY 7 YEARS Exam Limitations: No Limitations - Ebola screening Have you traveled outside of the country in the last 21 days: No Have you been sick,other than usual withdrawal symptoms: No - Review of Systems Constitutional: Chills, Diaphoresis, Loss of Appetite, Malaise, Night Sweats, Changes in sleep, Weakness EENT: reports: Tearing, Nose Congestion Respiratory: reports: No Symptoms reported Cardiac: reports: Palpitations GI: reports: Diarrhea, Nausea, Vomiting, Abdominal cramping : reports: No Symptoms Reported Musculoskeletal: reports: Back Pain, Joint Pain, Muscle Pain, Joint Stiffness Integumentary: reports: Dryness, Other (RASH BOTH HANDS) Neuro: reports: Headache, Tremors Endocrine: reports: No Symptoms Reported Hematology: reports: No Symptoms Reported Psychiatric: reports: No Sypmtoms Reported, Judgement Intact, Mood/Affect Appropiate, Depressed Patient History - Patient Medical History Hx Anemia: No Hx Asthma: No Hx Chronic Obstructive Pulmonary Disease (COPD): No Hx Cancer: No Hx Cardiac Disorders: No Hx Congestive Heart Failure: No Hx Hypertension: Yes (NO MED) Hx Hypercholesterolemia: No Hx Pacemaker: No HX Cerebrovascular Accident: No Hx Seizures: No Hx Dementia: No Hx Diabetes: No Hx Gastrointestinal Disorders: Yes (Acide reflux) Hx Liver Disease: No Hx Genitourinary Disorders: No Hx Sexually Transmitted Disorders: No Hx Renal Disease (ESRD): No Hx Thyroid Disease: No Hx Human Immunodeficiency Virus (HIV): No (LAST 05/09 NEGATIVE) Hx Hepatitis C: No Hx Depression: Yes Hx Suicide Attempt: No Hx Bipolar Disorder: No Hx Schizophrenia: No Other Medical History: NO SUICIDAL,NO HOMICIDAL,ROTATOR CUFF INJURY RIGHT IN 2015 - Patient Surgical History Past Surgical History: No Hx Neurologic Surgery: No Hx Cataract Extraction: No Hx Cardiac Surgery: No Hx Lung Surgery: No Hx Breast Surgery: No Hx Breast Biopsy: No Hx Abdominal Surgery: No Hx Appendectomy: No Hx Cholecystectomy: No Hx Genitourinary Surgery: No Hx Section: No Hx Orthopedic Surgery: No Anesthesia Reaction: No - PPD History Previous Implant?: Yes Documented Results: Negative w/proof Implanted On Prior [facility] Admission?: Yes Date: 05/11/16 Results: 0 MM PPD to be Administered?: Yes - Smoking Cessation Smoking history: Current every day smoker Have you smoked in the past 12 months: Yes Aproximately how many cigarettes per day: 40 Hx Chewing Tobacco Use: No Initiated information on smoking cessation: Yes 'Breaking Loose' booklet given: 07/06/16 - Substance & Tx. History Hx Alcohol Use: No Hx Substance Use: Yes Substance Use Type: Heroin, Tranquilizers Hx Substance Use Treatment: Yes ([facility] 05/09/16 TO 05/13/16) - Substances Abused Heroin Route: Injection Frequency: Daily Amount used: 10 bags Age of first use: 26 Date of Last Use: 07/05/16 Marijuana/Hashish Route: Oral Frequency: Daily Amount used: 1 blunts Age of first use: 11 Date of Last Use: 07/03/16 Family Disease History - Family Disease History Family History: Denies Admission Physical Exam BHS - Vital Signs Vital Signs: Vital Signs - 24 hr 07/06/16 15:11 Temperature 98.3 F Pulse Rate 91 H Respiratory 20 Rate Blood Pressure 129/97 - Physical General Appearance: Yes: Moderate Distress, Tremorous, Irritable, Sweating, Anxious HEENTM: Yes: Hearing grossly Normal, LUC, Pharynx Normal Respiratory: Yes: Lungs Clear, Normal Breath Sounds, No Respiratory Distress Neck: Yes: Within Normal Limits, Supple, Trachea in good position Breast: Yes: Within Normal Limits Cardiology: Yes: Within Normal Limits, Regular Rhythm, Regular Rate, S1, S2 Abdominal: Yes: Within Normal Limits, Normal Bowel Sounds, Non Tender, Flat, Soft Genitourinary: Yes: Within Normal Limits Back: Yes: Within Normal Limits, Normal Inspection, Muscle Spasm Musculoskeletal: Yes: full range of Motion, Back pain, Joint Stiffness, Muscle Pain Extremities: Yes: Within Normal Limits, Normal Range of Motion, Tremors Neurological: Yes: Within Normal Limits, home office representative II-XII NML intact, Alert, Motor Strength 5/5 Integumentary: Yes: Dry, Other (RASH BOTH HANDS CONTACT DERMATITIS) Lymphatic: Yes: Within Normal Limits - Diagnostic (1) Cannabis dependence, uncomplicated Current Visit: Yes Status: Acute (2) Nicotine dependence Current Visit: Yes Status: Acute Qualifiers: Nicotine product type: cigarettes Substance use status: uncomplicated Qualified Code(s): F17.210 - Nicotine dependence, cigarettes, uncomplicated (3) Opioid dependence with withdrawal Current Visit: Yes Status: Acute (4) Hypertension Current Visit: Yes Status: Chronic Qualifiers: Hypertension type: essential hypertension Qualified Code(s): I10 - Essential (primary) hypertension (5) Depression Current Visit: Yes Status: Acute (6) Rotator cuff injury Current Visit: Yes Status: Acute (7) Contact dermatitis Current Visit: Yes Status: Acute Cleared for Admission [facility] - Detox or Rehab [facility] Level of Care: Medically Managed Detox Regimen/Protocol: Methadone [facility] Breath Alcohol Content Breath Alcohol Content: 0 Urine Drug Screen - Results Drug Screen Negative: No Urine Drug Screen Results: THC-Marijuana, OPI-Opiates, PCP-Phencyclidine, BZO- Benzodiazepines, MTD-Methadone, OXY-Oxycodone
[2016-07-06] MEDS ORDERED: guaiFENesin/D-METHORPHAN HB 10 ML UNIT-DOSE CUPS PO PRN (17:06)
[2016-07-06] MEDS ORDERED: MENTHOL/PHENOL 1 EACH UD MM PRN (17:06)
[2016-07-06] MEDS ORDERED: MAGNESIUM CITRATE 300 ML BOTTLE PO PRN (17:06)
[2016-07-06] MEDS ORDERED: MAG HYDROX/AL HYDROX/SIMETH 30 ML UNIT-DOSE CUP PO PRN (17:06)
[2016-07-06] MEDS ORDERED: P-EPHED 60MG/TRIPROLIDI 2.5MG TABLET PO PRN (17:06)
[2016-07-06] MEDS ORDERED: ACETAMINOPHEN 325 MG TABLET (FP) PO PRN (17:06)
[2016-07-06] MEDS ORDERED: METHADONE HCL 10 MG TABLET (FOR DETOX USE ONLY) PO ONE ×2 (17:06→23:00)
[2016-07-06] MEDS ORDERED: MAGNESIUM HYDROX 2400MG/30ML ORAL SUSPENSION 30 ML CUP PO PRN (17:06)
[2016-07-06] MEDS ORDERED: LOPERAMIDE HCL 2 MG CAPSULE PO PRN (17:06)
[2016-07-06] MEDS: diazePAM 5 MG TABLET PO PRN ×2 (19:11→23:28)
[2016-07-06] MEDS: THIAMINE HCL 100 MG TABLET (FP) PO SCH (22:14)
[2016-07-06] MEDS: diphenhydrAMINE HCL 50 MG CAPSULE PO PRN (22:14)
[2016-07-06] MEDS: IBUPROFEN 400 MG TABLET (FP) PO PRN (23:28)
[2016-07-07] MEDS: diazePAM 5 MG TABLET PO PRN ×5 (03:36→23:45)
--- NOTE | 2016-07-07 08:59 | PN ---
BHS COWS - Scale Resting Pulse: 0= [place] 80 or Below Sweatin=Flushed/Facial Moisture Restless Observation: 1= Difficult to Sit Still Pupil Size: 0= Normal to Room Light Bone or Joint Aches: 2= Severe Diffuse Aches Runny Nose/ Eye Tearin= Runny Nose/Eyes GI Upset > 30mins: 2= Nausea/Diarrhea Tremor Observation of Outstretched Hands: 2= Slight Tremor Visible Yawning Observation: 1= 1-2x During Session Anxiety or Irritability: 2=Irritable/Anxious Goose Flesh Skin: 0=Smooth Skin COWS Score: 14 S Progress Note (SOAP) Subjective: Nausea,sweating,interrupted sleep,restless,muscle aches,tremors. Objective: 07/07/16 08:58 Vital Signs - 8 hr 07/07/16 06:13 Temperature 97.1 F L Pulse Rate 70 Respiratory 18 Rate Blood Pressure 112/74 Assessment: 07/07/16 08:58 Withdrawal sx Plan: Continue detox
[2016-07-07] MEDS ORDERED: METHADONE HCL 10 MG TABLET (FOR DETOX USE ONLY) PO ONE (10:00)
[2016-07-07] MEDS: NICOTINE 21 MG/24 HOURS TOPICAL PATCH TD SCH (10:10)
[2016-07-07] MEDS: PANTOPRAZOLE 40 MG TABLET (FP) PO SCH (10:11)
[2016-07-07] MEDS: PRENATAL VITAMINS W/ FOLIC ACID TABLET (FP) PO SCH (10:11)
[2016-07-07] MEDS: cloNIDine HCL 0.1 MG TABLET PO SCH ×2 (10:14→22:14)
[2016-07-07] MEDS: NICOTINE POLACRILEX 2 MG GUM BUC PRN (10:14)
--- NOTE | 2016-07-07 12:18 | CONSULT ---
[facility] Psychiatric Consult - Data Date of interview: 07/07/16 Admission source: [facility] Identifying data: Another admission to [facility] for this 35 y/o male seeking detoxification treatment,on ,for heroin,marijuana and benzodiazepine (valium) dependence.Patient is single,a father of one,domiciled, unemployed and dependent on relatives for financial support. Substance Abuse History: - Smoking Cessation. Smoking history: Current every day smoker. Have you smoked in the past 12 months: Yes. Aproximately how many cigarettes per day: 40. Hx Chewing Tobacco Use: No. Initiated information on smoking cessation: Yes. 'Breaking Loose' booklet given: 07/06/16. - Substance & Tx. History. Hx Alcohol Use: No. Hx Substance Use: Yes. Substance Use Type : Heroin, Tranquilizers. Hx Substance Use Treatment: Yes ([facility] 05/09/16 TO ). - Substances Abused. Heroin. Route: Injection. Frequency: Daily. Amount used: 10 bags. Age of first use: 26. Date of Last Use: 07/05/16. Marijuana/Hashish. Route: Oral. Frequency: Daily. Amount used: 1 blunts. Age of first use: 11. Date of Last Use: 07/03/16. Confirmed by patient. Medical History: Hypertension. Psychiatric History: Patient denies history of psychiatric hospitalizations.Diagnosed with MDD,Bipolar Disorder.Started psychiatric treatment in 2006 during incarceration.Prescribed wellbutrin XL 450 mg/day and gabapentin 1200 mg po tid.Mr Garcia indicates that he gets his outpatient psychiatric services at the [facility] in the [place].He denies history of suicide attempts. Physical/Sexual Abuse/Trauma History: Patient denies history of abuse. Additional Comment: Urine Drug Screen Results: THC-Marijuana, OPI-Opiates, PCP- Phencyclidine, BZO-Benzodiazepines, MTD-Methadone, OXY-Oxycodone.Noted. Mental Status Exam - Mental Status Exam Alert and Oriented to: Time, Place, Person Cognitive Function: Good Patient Appearance: Well Groomed (overweight;tattoos on forearms) Mood: Nervous, Withdrawn, Anxious, Irritable Affect: Mood Congruent, Constricted Patient Behavior: Fatigued, Appropriate, Cooperative Speech Pattern: Clear Voice Loudness: Normal Thought Process: Goal Oriented Thought Disorder: Not Present Hallucinations: Denies Suicidal Ideation: Denies Homicidal Ideation: Denies Insight/Judgement: Poor Sleep: Poorly, Difficulty falling asleep Appetite: Good Muscle strength/Tone: Normal Gait/Station: Normal Psychiatric Findings - Problem List ([place] 1, 2,3) (1) Opioid dependence with withdrawal Current Visit: Yes Status: Acute (2) Cannabis dependence, uncomplicated Current Visit: Yes Status: Acute (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 Current Visit: Yes Status: Acute (4) Nicotine dependence Current Visit: Yes Status: Acute Qualifiers: Nicotine product type: cigarettes Substance use status: uncomplicated Qualified Code(s): F17.210 - Nicotine dependence, cigarettes, uncomplicated (5) Substance induced mood disorder Current Visit: Yes Status: Acute (6) Depressive disorder Current Visit: Yes Status: Chronic (7) Chronic joint pain Current Visit: Yes Status: Chronic (8) Hypertension Current Visit: Yes Status: Chronic Qualifiers: Hypertension type: essential hypertension Qualified Code(s): I10 - Essential (primary) hypertension (9) Insomnia Current Visit: Yes Status: Acute - Initial Treatment Plan Initial Treatment Plan: Psychoeducation.Detoxification.Medications : wellbutrin XL 450 mg po daily + gabapentin 1200 mg po tid.Side effects/benefits of both drugs are discussed with the patient.Doses were verified via survey of recent pharmacy claims :noted filled scripts on 06/27/16 @ [facility] # [id number] from provider Alonzo Pedraza.Patient is in agreement with this careplan.Eager to resume his medications.Observation.NO need for scripts at discharge.
--- NOTE | 2016-07-07 13:02 | EKG ---
Test Reason : Blood Pressure : / mmHG Vent. Rate : 098 BPM Atrial Rate : 098 BPM P-R Int : 146 ms QRS Dur : 106 ms QT Int : 382 ms P-R-T Axes : 075 061 017 degrees QTc Int : 487 ms NORMAL SINUS RHYTHM WHEN COMPARED WITH ECG OF 09-MAY-2016 00:54, VENT. RATE HAS INCREASED Confirmed by IMER CHE MD ([id number]) on 07/07/2016 1:02:23 PM Referred By: Cameron Duran Confirmed By:IMER CHE MD
[2016-07-07] MEDS: GABAPENTIN 400 MG CAPSULE (FP) PO SCH ×2 (14:05→22:14)
[2016-07-07 14:54] LABS: URINE APPEARANCE CLEAR; URINE BILIRUBIN NEGATIVE (NEGATIVE); URINE BLOOD NEGATIVE (NEGATIVE); URINE COLOR YELLOW; URINE GLUCOSE (UA) NEGATIVE (NEGATIVE); URINE KETONE NEGATIVE (NEGATIVE); URINE LEUK ESTERASE NEGATIVE (NEGATIVE); URINE NITRITE NEGATIVE (NEGATIVE); URINE PROTEIN NEGATIVE (NEGATIVE); URINE UROBILINOGEN 2.0 E.U/dl E.U./dl (0.2-1.0)
[2016-07-07] MEDS: IBUPROFEN 400 MG TABLET (FP) PO PRN (19:41)
[2016-07-07] MEDS: THIAMINE HCL 100 MG TABLET (FP) PO SCH (22:14)
[2016-07-07] MEDS: diphenhydrAMINE HCL 50 MG CAPSULE PO PRN (22:15)
[2016-07-08] MEDS: GABAPENTIN 400 MG CAPSULE (FP) PO SCH ×3 (05:47→22:06)
[2016-07-08] MEDS: diazePAM 5 MG TABLET PO PRN ×4 (05:48→18:58)
[2016-07-08] MEDS: IBUPROFEN 400 MG TABLET (FP) PO PRN ×2 (05:49→17:09)
[2016-07-08] MEDS ORDERED: METHADONE HCL 5 MG TABLET (FOR DETOX USE ONLY) PO ONE (10:00)
[2016-07-08] MEDS: cloNIDine HCL 0.1 MG TABLET PO SCH ×2 (10:12→22:06)
[2016-07-08] MEDS: NICOTINE POLACRILEX 2 MG GUM BUC PRN (10:12)
[2016-07-08] MEDS: PANTOPRAZOLE 40 MG TABLET (FP) PO SCH (10:12)
[2016-07-08] MEDS: PRENATAL VITAMINS W/ FOLIC ACID TABLET (FP) PO SCH (10:12)
[2016-07-08] MEDS: NICOTINE 21 MG/24 HOURS TOPICAL PATCH TD SCH (10:13)
--- NOTE | 2016-07-08 10:29 | PN ---
BHS COWS - Scale Resting Pulse: 0= [place] 80 or Below Sweatin=Flushed/Facial Moisture Restless Observation: 1= Difficult to Sit Still Pupil Size: 0= Normal to Room Light Bone or Joint Aches: 2= Severe Diffuse Aches Runny Nose/ Eye Tearin= Runny Nose/Eyes GI Upset > 30mins: 2= Nausea/Diarrhea Tremor Observation of Outstretched Hands: 2= Slight Tremor Visible Yawning Observation: 1= 1-2x During Session Anxiety or Irritability: 2=Irritable/Anxious Goose Flesh Skin: 0=Smooth Skin COWS Score: 14 S Progress Note (SOAP) Subjective: Anxiety,tremors,sweating,interrupted sleep,restless Objective: 07/08/16 10:47 Vital Signs - 8 hr 07/08/16 07/08/16 06:24 09:40 Temperature 96.0 F L 97.8 F Pulse Rate 66 74 Respiratory 16 18 Rate Blood Pressure 111/68 123/78 Laboratory Tests 07/07/16 12:30 Urine Color Yellow Urine Appearance Clear Urine pH 5.0 Ur Specific [place] >= 1.030 H Urine Protein Negative Urine Glucose (UA) Negative Urine Ketones Negative Urine Blood Negative Urine Nitrite Negative Urine Bilirubin Negative Urine Urobilinogen 2.0 e.u/dl Ur Leukocyte Esterase Negative labs noted Assessment: 07/08/16 10:47 Withdrawal sx. Plan: Continue detox
[2016-07-08] MEDS: diphenhydrAMINE HCL 50 MG CAPSULE PO PRN (22:06)
[2016-07-08] MEDS: THIAMINE HCL 100 MG TABLET (FP) PO SCH (22:06)
[2016-07-09] MEDS: diazePAM 5 MG TABLET PO PRN ×3 (05:29→13:48)
[2016-07-09] MEDS: GABAPENTIN 400 MG CAPSULE (FP) PO SCH ×3 (05:29→22:12)
[2016-07-09] MEDS ORDERED: CYCLOBENZAPRINE HCL 10 MG TABLET (FP) PO ONE (08:59)
[2016-07-09] MEDS ORDERED: METHADONE HCL 5 MG TABLET (FOR DETOX USE ONLY) PO ONE (10:00)
--- NOTE | 2016-07-09 10:03 | PN ---
BHS Progress Note (SOAP) Subjective: ALERT,IRRITABLE,ANXIOUS,INTERRUPTED SLEEP,TREMOR,PAIN IN THE BODY AND BACK Objective: 07/09/16 10:02 Vital Signs Temperature 96.4 F L 07/09/16 09:58 Pulse Rate 81 07/09/16 09:58 Respiratory Rate 18 07/09/16 09:58 Blood Pressure 110/77 07/09/16 09:58 O2 Sat by Pulse Oximetry (%) Assessment: 07/09/16 10:02 WITHDRAWAL SYMPTOM Plan: CONTINUE DETOX
[2016-07-09] MEDS: PANTOPRAZOLE 40 MG TABLET (FP) PO SCH (10:05)
[2016-07-09] MEDS: NICOTINE 21 MG/24 HOURS TOPICAL PATCH TD SCH (10:05)
[2016-07-09] MEDS: PRENATAL VITAMINS W/ FOLIC ACID TABLET (FP) PO SCH (10:05)
[2016-07-09] MEDS: cloNIDine HCL 0.1 MG TABLET PO SCH ×2 (10:05→22:13)
[2016-07-09] MEDS: THIAMINE HCL 100 MG TABLET (FP) PO SCH (22:12)
[2016-07-09] MEDS: CYCLOBENZAPRINE HCL 10 MG TABLET (FP) PO PRN (22:13)
[2016-07-09] MEDS: diphenhydrAMINE HCL 50 MG CAPSULE PO PRN (22:13)
[2016-07-10] MEDS: GABAPENTIN 400 MG CAPSULE (FP) PO SCH ×3 (05:29→22:12)
[2016-07-10] MEDS: hydrOXYzine PAMOATE 50 MG CAPSULE (FP) PO PRN ×3 (07:33→17:08)
[2016-07-10] MEDS ORDERED: METHADONE HCL 10 MG TABLET (FOR DETOX USE ONLY) PO ONE (10:00)
[2016-07-10] MEDS: CYCLOBENZAPRINE HCL 10 MG TABLET (FP) PO PRN (10:13)
[2016-07-10] MEDS: PRENATAL VITAMINS W/ FOLIC ACID TABLET (FP) PO SCH (10:13)
[2016-07-10] MEDS: cloNIDine HCL 0.1 MG TABLET PO SCH ×2 (10:13→22:12)
[2016-07-10] MEDS: PANTOPRAZOLE 40 MG TABLET (FP) PO SCH (10:13)
[2016-07-10] MEDS: NICOTINE POLACRILEX 2 MG GUM BUC PRN (10:14)
[2016-07-10] MEDS: NICOTINE 21 MG/24 HOURS TOPICAL PATCH TD SCH (10:14)
--- NOTE | 2016-07-10 10:15 | PN ---
BHS Progress Note (SOAP) Subjective: Sweating,interrupted sleep,restless Objective: 07/10/16 10:14 Vital Signs - 8 hr 07/10/16 07/10/16 07/10/16 03:20 06:09 09:21 Temperature 97.6 F 97.4 F L Pulse Rate 81 87 Respiratory 18 18 18 Rate Blood Pressure 105/74 113/73 Laboratory Last Values Urine Color Yellow 07/07/16 12:30 Urine Appearance Clear 07/07/16 12:30 Urine pH 5.0 (5.0-8.0) 07/07/16 12:30 Ur Specific [place] >= 1.030 (1.005-1.025) H 07/07/16 12:30 Urine Protein Negative (NEGATIVE) 07/07/16 12:30 Urine Glucose (UA) Negative (NEGATIVE) 07/07/16 12:30 Urine Ketones Negative (NEGATIVE) 07/07/16 12:30 Urine Blood Negative (NEGATIVE) 07/07/16 12:30 Urine Nitrite Negative (NEGATIVE) 07/07/16 12:30 Urine Bilirubin Negative (NEGATIVE) 07/07/16 12:30 Urine Urobilinogen 2.0 e.u/dl E.U./dl (0.2-1.0) 07/07/16 12:30 Ur Leukocyte Esterase Negative (NEGATIVE) 07/07/16 12:30 Assessment: 07/10/16 10:15 Withdrawal sx. Plan: Continue detox
[2016-07-10] MEDS: CYCLOBENZAPRINE HCL 10 MG TABLET (FP) PO SCH ×2 (13:46→22:12)
[2016-07-10] MEDS: THIAMINE HCL 100 MG TABLET (FP) PO SCH (22:12)
[2016-07-10] MEDS: diphenhydrAMINE HCL 50 MG CAPSULE PO PRN (22:13)
[2016-07-11] MEDS: hydrOXYzine PAMOATE 50 MG CAPSULE (FP) PO PRN (05:07)
[2016-07-11] MEDS: GABAPENTIN 400 MG CAPSULE (FP) PO SCH (05:07)
[2016-07-11] MEDS: CYCLOBENZAPRINE HCL 10 MG TABLET (FP) PO SCH (05:07)
[2016-07-11] MEDS ORDERED: METHADONE HCL 5 MG TABLET (FOR DETOX USE ONLY) PO ONE (06:00)
[2016-07-11] MEDS: NICOTINE 21 MG/24 HOURS TOPICAL PATCH TD SCH (10:09)
[2016-07-11] MEDS: PANTOPRAZOLE 40 MG TABLET (FP) PO SCH (10:09)
[2016-07-11] MEDS: PRENATAL VITAMINS W/ FOLIC ACID TABLET (FP) PO SCH (10:09)
[2016-07-11] MEDS: cloNIDine HCL 0.1 MG TABLET PO SCH (10:09)
[2016-07-11 10:13] VITALS: BP 106/72; PULSE 89; TEMP 98.2
--- NOTE | 2016-07-11 10:39 | DS ---
[facility] Detox Discharge Summary Admission Date: 07/06/16 Discharge Date: 07/11/16 - History Present History: Cannabis Dependence, Opioid Dependence, Sedative Dependence Pertinent Past History: Mood disorder - Physical Exam Results Vital Signs: Vital Signs Temperature 98.2 F 07/11/16 10:12 Pulse Rate 89 07/11/16 10:12 Respiratory Rate 18 07/11/16 10:12 Blood Pressure 106/72 07/11/16 10:12 O2 Sat by Pulse Oximetry (%) Pertinent Admission Physical Exam Findings: Withdrawal sx. - Treatment Hospital Course: Detox Protocol Followed, Detoxed Safely, Responded well, Discharged Condition Good, Rehab Referral Accepted Patient has Accepted a Rehab Referral to: Rehab - Medication Discharge Medications: Ambulatory Orders Gabapentin 1,200 mg PO TID 05/09/16 Omeprazole 20 mg PO DAILY 05/09/16 Bupropion HCl [Wellbutrin Xl -] 450 mg PO DAILY #60 tab.sr.24h 05/10/16 - Diagnosis (1) Cannabis dependence, uncomplicated Current Visit: Yes Status: Acute (2) Nicotine dependence Current Visit: Yes Status: Acute Qualifiers: Nicotine product type: cigarettes Substance use status: uncomplicated Qualified Code(s): F17.210 - Nicotine dependence, cigarettes, uncomplicated (3) Opioid dependence with withdrawal Current Visit: Yes Status: Acute (4) Sedative/hypnotic withdrawal without complication Current Visit: Yes Status: Acute (5) Substance induced mood disorder Current Visit: Yes Status: Acute (6) Depressive disorder Current Visit: Yes Status: Chronic - AMA Did Patient Leave Against Medical Advice: No
== END 2016-07-11 13:00 | disposition home or self-care (01) | DRG 773 ==
LOC: YASAS 14:53 → Y3N 16:51
PROVIDERS: ADMIT Internal Medicine Addiction Medicine; ATTEND Internal Medicine Addiction Medicine
PROC: HZ2ZZZZ Detoxification Services for Substance Abuse Treatment (ICD-10-PCS; principal; 2016-07-11)
DX: F11.23 Opioid dependence with withdrawal (principal); F13.230 Sedative, hypnotic or anxiolytic dependence with withdrawal, uncomplicated; F12.20 Cannabis dependence, uncomplicated; F17.210 Nicotine dependence, cigarettes, uncomplicated; F19.24 Other psychoactive substance dependence with psychoactive substance-induced mood disorder; F39 Unspecified mood [affective] disorder; G47.00 Insomnia, unspecified; I10 Essential (primary) hypertension; K21.9 Gastro-esophageal reflux disease without esophagitis; L25.9 Unspecified contact dermatitis, unspecified cause
CPT/HCPCS: 81003; 93005; 93010

== ENCOUNTER 2016-07-14 11:12 | Inpatient (IN) | payer OTHER ==
[2016-07-14 13:27] VITALS: BMI 33.0
--- NOTE | 2016-07-14 15:20 | HP ---
Admission ROS [facility] Chief Complaint: "I am tired of being tired." Pt. is here for Rehab for Heroin. Allergies/Adverse Reactions: Allergies Allergy/AdvReac Type Severity Reaction Status Date / Time No Known Allergies Allergy Verified 07/14/16 14:19 History of Present Illness: Pt. is a 35 YO male here for Rehab from Heroin. Pt. has had 3 previous Detox admissions at [facility] and 1 previous Rehab admission at [facility]. Exam Limitations: No Limitations - Ebola screening Have you traveled outside of the country in the last 21 days: No Have you had contact with anyone from an Ebola affected area: No Have you been sick,other than usual withdrawal symptoms: No Do you have a fever: No - Review of Systems Constitutional: Chills, Diaphoresis, Fever, Malaise, Night Sweats, Changes in sleep, Unintentional Wgt. Loss (Lost approx. 20 lbs over the last 2 months.) EENT: reports: Nose Congestion, Sinus Pressure Respiratory: reports: Productive cough Cardiac: reports: No Symptoms Reported GI: reports: Constipated, Poor Appetite, Indigestion : reports: No Symptoms Reported Musculoskeletal: reports: Back Pain (Several Herniated Discs in Lumbar Area.), Muscle Pain, Joint Stiffness Integumentary: reports: Rash (Bilateral Hands X approx. 2 weeks.) Neuro: reports: Tremors Endocrine: reports: No Symptoms Reported Hematology: reports: No Symptoms Reported Psychiatric: reports: Judgement Intact, Mood/Affect Appropiate, Orientated x3, Anxious, Depressed (Takes meds.) Other Systems: Reviewed and Negative Patient History - Patient Medical History Hx Anemia: No Hx Asthma: No Hx Chronic Obstructive Pulmonary Disease (COPD): No Hx Cancer: No Hx Cardiac Disorders: No Hx Congestive Heart Failure: No Hx Hypertension: Yes (In past, Not recent. No meds.) Hx Hypercholesterolemia: No Hx Pacemaker: No HX Cerebrovascular Accident: No Hx Seizures: No Hx Dementia: No Hx Diabetes: No Hx Gastrointestinal Disorders: Yes (Acide reflux) Hx Liver Disease: No Hx Genitourinary Disorders: No Hx Sexually Transmitted Disorders: No Hx Renal Disease (ESRD): No Hx Thyroid Disease: No Hx Human Immunodeficiency Virus (HIV): No (LAST 05/09 NEGATIVE) Hx Hepatitis C: No (LAST TESTED: 02/2016: NEGATIVE.) Hx Depression: Yes (On meds.) Hx Suicide Attempt: No (PATIENT DENIES CURRENT SI / HI.) Hx Bipolar Disorder: No Hx Schizophrenia: No - Patient Surgical History Past Surgical History: No Hx Neurologic Surgery: No Hx Cataract Extraction: No Hx Cardiac Surgery: No Hx Lung Surgery: No Hx Breast Surgery: No Hx Breast Biopsy: No Hx Abdominal Surgery: No Hx Appendectomy: No Hx Cholecystectomy: No Hx Genitourinary Surgery: No Hx Section: No Hx Orthopedic Surgery: No Anesthesia Reaction: Yes (Woke prematurely from Anesthesia used in Shoulder surgery: 2016.) - PPD History Previous Implant?: Yes Documented Results: Negative w/proof Implanted On Prior [facility] Admission?: Yes Date: 05/11/16 Results: 0 MM PPD to be Administered?: No - Reproductive History Patient is a Female of Child Bearing Age (11 -55 yrs old): No (PATIENT IS MALE.) - Smoking Cessation Smoking history: Current every day smoker Have you smoked in the past 12 months: Yes Aproximately how many cigarettes per day: 20 Cigars Per Day: 0 Hx Chewing Tobacco Use: No Initiated information on smoking cessation: Yes 'Breaking Loose' booklet given: 07/14/16 (GIVEN ON UNIT.) - Substance & Tx. History Hx Alcohol Use: No Hx Substance Use: Yes Substance Use Type: Heroin, Marijuana Hx Substance Use Treatment: Yes (Previous DEtox admisssions at [facility]; 1 Rehab admission at [facility].) - Substances Abused Heroin Route: Injection Frequency: Daily Amount used: 10 Bags. Age of first use: 24 Date of Last Use: 07/06/16 Marijuana/Hashish Route: Smoking Frequency: 1-3 times last 30 days Amount used: 2 Blunts. Age of first use: 11 Date of Last Use: 07/06/16 Family Disease History - Family Disease History Family Disease History: Heart Disease: Mother (HTN, Osteoporosis.), Respiratory : Son (Asthma.), Other: Father (Osteoarthritis.), Mother Admission Physical Exam S - Vital Signs Vital Signs: Vital Signs - 24 hr 07/14/16 13:25 Temperature 99.3 F Pulse Rate 122 H Respiratory 20 Rate Blood Pressure 124/72 - Physical General Appearance: Yes: No Apparent Distress, Nourished, Appropriately Dressed , Tremorous, Anxious HEENTM: Yes: Hearing grossly Normal, Normocephalic, Normal Voice, LUC, Pharynx Normal Respiratory: Yes: Chest Non-Tender, Lungs Clear, No Respiratory Distress Neck: Yes: No masses,lesions,Nodules, Supple, Trachea in good position Breast: Yes: Breast Exam Deferred Cardiology: Yes: Regular Rhythm, Regular Rate, S1, S2, Tachycardia (PATIENT DENIES CHEST PAIN.) Abdominal: Yes: Normal Bowel Sounds, Non Tender, Flat, Soft Genitourinary: Yes: Within Normal Limits Back: Yes: Decreased Range of Motion, Vertebral Tenderness Musculoskeletal: Yes: Gait Steady, Back pain, Joint Stiffness Extremities: Yes: Tremors Neurological: Yes: Fully Oriented, Alert, Normal Mood/Affect, Normal Response Integumentary: Yes: Normal Color, Dry, Warm, Track Munson (Noted in Cubital Creases of Bilateral Arms, No open wounds, discharge, or signs of infection noted at either site.) Lymphatic: Yes: Within Normal Limits - Diagnostic (1) Opioid dependence Current Visit: Yes Status: Chronic Qualifiers: Substance use status: uncomplicated Qualified Code(s): F11.20 - Opioid dependence, uncomplicated (2) GERD (gastroesophageal reflux disease) Current Visit: Yes Status: Chronic Qualifiers: Esophagitis presence: without esophagitis Qualified Code(s): K21.9 - Gastro-esophageal reflux disease without esophagitis (3) Injury of lower back Current Visit: Yes Status: Chronic Qualifiers: Encounter type: sequela Qualified Code(s): S39.92XS - Unspecified injury of lower back, sequela (4) Nicotine dependence Current Visit: Yes Status: Chronic Qualifiers: Nicotine product type: cigarettes Substance use status: uncomplicated Qualified Code(s): F17.210 - Nicotine dependence, cigarettes, uncomplicated (5) History of hypertension Current Visit: Yes Status: Suspected Cleared for Admission [facility] - Detox or Rehab Claeared for Rehab Admission: Yes [facility] Breath Alcohol Content Breath Alcohol Content: 0 Urine Drug Screen - Results Drug Screen Negative: Yes
[2016-07-14] MEDS ORDERED: MAGNESIUM CITRATE 300 ML BOTTLE PO PRN (16:14)
[2016-07-14] MEDS ORDERED: MENTHOL/PHENOL 1 EACH UD MM PRN (16:14)
[2016-07-14] MEDS ORDERED: hydrOXYzine PAMOATE 50 MG CAPSULE (FP) PO PRN (16:14)
[2016-07-14] MEDS ORDERED: P-EPHED 60MG/TRIPROLIDI 2.5MG TABLET PO PRN (16:14)
[2016-07-14] MEDS ORDERED: LOPERAMIDE HCL 2 MG CAPSULE PO PRN (16:14)
[2016-07-14] MEDS ORDERED: MAGNESIUM HYDROX 2400MG/30ML ORAL SUSPENSION 30 ML CUP PO PRN (16:14)
[2016-07-14] MEDS ORDERED: MAG HYDROX/AL HYDROX/SIMETH 30 ML UNIT-DOSE CUP PO PRN (16:14)
[2016-07-14] MEDS: NICOTINE 21 MG/24 HOURS TOPICAL PATCH TD SCH (18:41)
[2016-07-14] MEDS: NICOTINE POLACRILEX 2 MG GUM BC PRN (18:42)
[2016-07-14 21:18] LABS: URINE APPEARANCE CLEAR; URINE BILIRUBIN NEGATIVE (NEGATIVE); URINE BLOOD NEGATIVE (NEGATIVE); URINE COLOR STRAW; URINE GLUCOSE (UA) NEGATIVE (NEGATIVE); URINE KETONE NEGATIVE (NEGATIVE); URINE LEUK ESTERASE NEGATIVE (NEGATIVE); URINE NITRITE POSITIVE (NEGATIVE); URINE PROTEIN NEGATIVE (NEGATIVE); URINE UROBILINOGEN NEGATIVE E.U./dl (0.2-1.0)
[2016-07-14] MEDS: CLOTRIMAZOLE 1% CREAM 15 GM TUBE TP SCH (21:27)
[2016-07-14] MEDS: THIAMINE HCL 100 MG TABLET (FP) PO SCH (21:29)
[2016-07-14] MEDS ORDERED: GABAPENTIN 400 MG CAPSULE (FP) PO ONE (22:31)
[2016-07-14] MEDS: COLLOIDAL OATMEAL 1 BAR EACH TP PRN (23:08)
[2016-07-15] MEDS ORDERED: GABAPENTIN PO SCH ×2 (06:00→14:00)
--- NOTE | 2016-07-15 07:36 | HP ---
Psychiatrist Admission - Data Date of interview: 07/15/16 Admission source: 3N Identifying data: This is the first [facility] admission for this 35 years old single male, father of a 9 years old son, unemployed, domiciled living with his girkfriend Medical History: Significant for HTN, GERD and history of torn ligament of right shoulder. Smokes Cigarettes 1ppd Psychiatric History: Reports that he started seeing psychiatrist in 2006 while serving time in senior living. He was diagnosed with MDD and prescribed Welbutrin XL up to 450 mg po daily. Followig his release, he has been seeing psychiatrist at [facility] in the [place] and has been continued on the same medication. Denies history of previous psychiatric hospitalization or suicidal attempt. He saw Dr Bravo on 07/07/16 while in detox and was continued on Wellbutrin XL 450 mg po daily. At present, reports feeling very angry and sleeping poorly Physical/Sexual Abuse/Trauma History: Denies history of emotional, physical or sexual abuse as well as DV relationship Additional Comment: Reports history multiple arrests including 4 felony convictions. Reports being on federal parole till June 2023 Vital Signs: Vital Signs - 24 hr 07/14/16 07/15/16 07/15/16 13:25 00:30 03:30 Temperature 99.3 F Pulse Rate 122 H Respiratory 20 18 18 Rate Blood Pressure 124/72 07/15/16 06:43 Temperature 97.8 F Pulse Rate 86 Respiratory 18 Rate Blood Pressure 141/95 Allergies/Adverse Reactions: Allergies Allergy/AdvReac Type Severity Reaction Status Date / Time No Known Allergies Allergy Verified 07/14/16 14:19 Date of last physical exam: 07/14/16 Concur with the findings of this exam: Yes - Substance Abuse/Tx History Hx Alcohol Use: No Hx Substance Use: Yes Substance Use Type: Heroin (Started using heroin at age 24, consumes 10 bags daily. Last used on 07/06/16), Marijuana (Started smoking marijuana at age 11, consumes 2 blunts 1-3 times i the last 30 days. Last smoked on 07/06/16) Hx Substance Use Treatment: Yes (3 previous inpt detox @ [facility] & One previus inpt rehab @ [facility]) - Admission Criteria Previous failed treatment: No Poor recovery environment: Yes Comorbidities: Yes Lacks judgement: Yes Mental Status Exam - Mental Status Exam Alert and Oriented to: Time, Place, Person Cognitive Function: Fair Patient Appearance: Well Groomed Mood: Angry Affect: Appropriate Patient Behavior: Cooperative Speech Pattern: Clear Voice Loudness: Normal Thought Process: Intact Thought Disorder: Not Present Hallucinations: Denies Suicidal Ideation: Denies Homicidal Ideation: Denies Insight/Judgement: Fair Sleep: Poorly Appetite: Fair Muscle strength/Tone: Normal, Severe Hypotonicity Psychiatric Findings - Problem List ([place] 1, 2,3) (1) Opioid dependence Current Visit: Yes Status: Chronic Qualifiers: Substance use status: uncomplicated Qualified Code(s): F11.20 - Opioid dependence, uncomplicated (2) Benzodiazepine dependence Current Visit: No Status: Acute (3) Cannabis dependence, uncomplicated Current Visit: No Status: Acute (4) Nicotine dependence Current Visit: Yes Status: Chronic Qualifiers: Nicotine product type: cigarettes Substance use status: uncomplicated Qualified Code(s): F17.210 - Nicotine dependence, cigarettes, uncomplicated (5) Depressive disorder Current Visit: No Status: Chronic (6) MDD (major depressive disorder) Current Visit: Yes Status: Ruled-out (7) GERD (gastroesophageal reflux disease) Current Visit: Yes Status: Chronic Qualifiers: Esophagitis presence: without esophagitis Qualified Code(s): K21.9 - Gastro-esophageal reflux disease without esophagitis (8) History of hypertension Current Visit: Yes Status: Suspected - Initial Treatment Plan Initial Treatment Plan: 1) Continue Wellbutrin XL 450 mg po daily. 2) Monitor progress
[2016-07-15] MEDS ORDERED: BUPROPION HCL PO SCH (10:30)
[2016-07-15] MEDS: NICOTINE 21 MG/24 HOURS TOPICAL PATCH TD SCH (10:52)
[2016-07-15] MEDS: CLOTRIMAZOLE 1% CREAM 15 GM TUBE TP SCH ×2 (10:53→21:41)
--- NOTE | 2016-07-15 11:45 | EKG ---
Test Reason : Blood Pressure : / mmHG Vent. Rate : 095 BPM Atrial Rate : 095 BPM P-R Int : 154 ms QRS Dur : 110 ms QT Int : 396 ms P-R-T Axes : 067 060 026 degrees QTc Int : 497 ms NORMAL SINUS RHYTHM POSSIBLE INFERIOR INFARCT (CITED ON OR BEFORE 14-JUL-2016) ABNORMAL ECG WHEN COMPARED WITH ECG OF 06-JUL-2016 18:14, NO SIGNIFICANT CHANGE WAS FOUND Confirmed by YANE HAYNES, IMER ([id number]) on 07/15/2016 11:44:44 AM Referred By: Confirmed By:IMER CHE MD
[2016-07-15] MEDS: PRENATAL VITAMINS W/ FOLIC ACID TABLET (FP) PO SCH (11:48)
[2016-07-15] MEDS: IBUPROFEN 400 MG TABLET (FP) PO PRN ×2 (11:48→17:23)
[2016-07-15] MEDS: PANTOPRAZOLE 40 MG TABLET (FP) PO SCH (11:48)
[2016-07-15] MEDS: NICOTINE POLACRILEX 2 MG GUM BC PRN (11:51)
[2016-07-15] MEDS ORDERED: LIDOCAINE 5% TOPICAL PATCH TP ONE (12:04)
[2016-07-15] MEDS ORDERED: GABAPENTIN 250 MG/5 ML ORAL SOLUTION, 470 ML BOTTLE PO SCH (14:00)
[2016-07-15] MEDS ORDERED: GABAPENTIN 300 MG CAPSULE (FP) PO SCH (14:00)
[2016-07-15] MEDS: GABAPENTIN 300 MG PO SCH ×2 (14:59→21:41)
[2016-07-15] MEDS: AMOX TR/POT CLAV 875MG/125MG TABLETS (FP) PO SCH (17:22)
[2016-07-15] MEDS: CYCLOBENZAPRINE HCL 10 MG TABLET (FP) PO PRN (17:22)
[2016-07-15] MEDS: diphenhydrAMINE HCL 50 MG CAPSULE PO PRN (21:38)
[2016-07-15] MEDS: THIAMINE HCL 100 MG TABLET (FP) PO SCH (21:38)
[2016-07-15] MEDS ORDERED: PT OWN MED DRAWER 7, Y5N ONE ×3 (21:41→22:19)
[2016-07-15] MEDS: ACETAMINOPHEN 325 MG TABLET (FP) PO PRN (21:42)
[2016-07-15] MEDS ORDERED: METHYL SALICYLATE/MENTHOL OINT 30 GM TUBE TP ONE (21:59)
[2016-07-16] MEDS: diphenhydrAMINE HCL 50 MG CAPSULE PO PRN (00:17)
[2016-07-16] MEDS: IBUPROFEN 400 MG TABLET (FP) PO PRN ×3 (00:17→18:06)
[2016-07-16] MEDS: GABAPENTIN 300 MG PO SCH ×3 (06:03→21:49)
[2016-07-16] MEDS: guaiFENesin/D-METHORPHAN HB 10 ML UNIT-DOSE CUPS PO PRN ×2 (06:04→21:50)
[2016-07-16] MEDS: AMOX TR/POT CLAV 875MG/125MG TABLETS (FP) PO SCH ×2 (07:12→18:06)
[2016-07-16] MEDS ORDERED: PT OWN MED DRAWER 7, Y5N ONE ×2 (08:45→21:50)
[2016-07-16] MEDS: CLOTRIMAZOLE 1% CREAM 15 GM TUBE TP SCH ×2 (09:41→21:50)
[2016-07-16] MEDS: CYCLOBENZAPRINE HCL 10 MG TABLET (FP) PO PRN ×3 (09:41→21:49)
[2016-07-16] MEDS: PANTOPRAZOLE 40 MG TABLET (FP) PO SCH (09:42)
[2016-07-16] MEDS: NICOTINE 21 MG/24 HOURS TOPICAL PATCH TD SCH (09:43)
[2016-07-16] MEDS: LIDOCAINE 5% TOPICAL PATCH TP SCH (09:43)
[2016-07-16] MEDS: NICOTINE POLACRILEX 2 MG GUM BC PRN (09:44)
[2016-07-16] MEDS: PRENATAL VITAMINS W/ FOLIC ACID TABLET (FP) PO SCH (10:20)
[2016-07-16] MEDS: METHYL SALICYLATE/MENTHOL OINT 30 GM TUBE TP SCH (10:20)
[2016-07-16] MEDS: ACETAMINOPHEN 325 MG TABLET (FP) PO PRN ×2 (14:26→21:50)
[2016-07-16] MEDS: THIAMINE HCL 100 MG TABLET (FP) PO SCH (21:49)
[2016-07-17] MEDS ORDERED: PT OWN MED DRAWER 7, Y5N ONE ×3 (03:21→21:28)
[2016-07-17] MEDS: GABAPENTIN 300 MG PO SCH ×3 (06:29→21:28)
[2016-07-17] MEDS: IBUPROFEN 400 MG TABLET (FP) PO PRN ×3 (06:33→21:29)
[2016-07-17] MEDS: CYCLOBENZAPRINE HCL 10 MG TABLET (FP) PO PRN (06:34)
[2016-07-17] MEDS: AMOX TR/POT CLAV 875MG/125MG TABLETS (FP) PO SCH ×2 (07:22→17:24)
[2016-07-17] MEDS: PRENATAL VITAMINS W/ FOLIC ACID TABLET (FP) PO SCH (09:31)
[2016-07-17] MEDS: PANTOPRAZOLE 40 MG TABLET (FP) PO SCH (09:31)
[2016-07-17] MEDS: guaiFENesin/D-METHORPHAN HB 10 ML UNIT-DOSE CUPS PO PRN ×2 (09:32→17:26)
[2016-07-17] MEDS: CLOTRIMAZOLE 1% CREAM 15 GM TUBE TP SCH ×2 (09:33→21:28)
[2016-07-17] MEDS: LIDOCAINE 5% TOPICAL PATCH TP SCH (09:34)
[2016-07-17] MEDS: NICOTINE 21 MG/24 HOURS TOPICAL PATCH TD SCH (09:34)
[2016-07-17] MEDS: COLLOIDAL OATMEAL 1 BAR EACH TP PRN (09:36)
[2016-07-17] MEDS: METHYL SALICYLATE/MENTHOL OINT 30 GM TUBE TP SCH (09:36)
[2016-07-17] MEDS: NICOTINE POLACRILEX 2 MG GUM BC PRN (09:37)
[2016-07-17] MEDS: ACETAMINOPHEN 325 MG TABLET (FP) PO PRN (17:25)
[2016-07-17] MEDS: THIAMINE HCL 100 MG TABLET (FP) PO SCH (21:27)
[2016-07-17] MEDS: CYCLOBENZAPRINE HCL 10 MG TABLET (FP) PO SCH (21:27)
[2016-07-18] MEDS: CYCLOBENZAPRINE HCL 10 MG TABLET (FP) PO SCH ×3 (05:51→21:04)
[2016-07-18] MEDS: GABAPENTIN 300 MG PO SCH ×3 (05:51→21:05)
[2016-07-18] MEDS: AMOX TR/POT CLAV 875MG/125MG TABLETS (FP) PO SCH ×2 (07:06→17:28)
[2016-07-18] MEDS ORDERED: PT OWN MED DRAWER 7, Y5N ONE ×3 (08:56→21:06)
[2016-07-18] MEDS: PANTOPRAZOLE 40 MG TABLET (FP) PO SCH (09:53)
[2016-07-18] MEDS: NICOTINE 21 MG/24 HOURS TOPICAL PATCH TD SCH (09:54)
[2016-07-18] MEDS: CLOTRIMAZOLE 1% CREAM 15 GM TUBE TP SCH ×2 (09:54→21:05)
[2016-07-18] MEDS: METHYL SALICYLATE/MENTHOL OINT 30 GM TUBE TP SCH (09:54)
[2016-07-18] MEDS: LIDOCAINE 5% TOPICAL PATCH TP SCH (09:54)
[2016-07-18] MEDS: PRENATAL VITAMINS W/ FOLIC ACID TABLET (FP) PO SCH (09:54)
[2016-07-18] MEDS: NICOTINE POLACRILEX 2 MG GUM BC PRN ×3 (09:59→21:06)
[2016-07-18] MEDS: IBUPROFEN 400 MG TABLET (FP) PO PRN ×2 (13:08→21:04)
[2016-07-18] MEDS: THIAMINE HCL 100 MG TABLET (FP) PO SCH (21:06)
[2016-07-19] MEDS: CYCLOBENZAPRINE HCL 10 MG TABLET (FP) PO SCH ×3 (06:12→21:54)
[2016-07-19] MEDS: GABAPENTIN 300 MG PO SCH ×3 (06:12→21:54)
[2016-07-19] MEDS: AMOX TR/POT CLAV 875MG/125MG TABLETS (FP) PO SCH ×2 (07:10→17:20)
[2016-07-19] MEDS: PANTOPRAZOLE 40 MG TABLET (FP) PO SCH (09:52)
[2016-07-19] MEDS: PRENATAL VITAMINS W/ FOLIC ACID TABLET (FP) PO SCH (09:52)
[2016-07-19] MEDS: NICOTINE 21 MG/24 HOURS TOPICAL PATCH TD SCH (09:53)
[2016-07-19] MEDS: LIDOCAINE 5% TOPICAL PATCH TP SCH (09:53)
[2016-07-19] MEDS: METHYL SALICYLATE/MENTHOL OINT 30 GM TUBE TP SCH (09:54)
[2016-07-19] MEDS: NICOTINE POLACRILEX 2 MG GUM BC PRN ×2 (09:54→21:56)
[2016-07-19] MEDS: CLOTRIMAZOLE 1% CREAM 15 GM TUBE TP SCH ×2 (09:54→21:50)
[2016-07-19] MEDS: IBUPROFEN 400 MG TABLET (FP) PO PRN (17:22)
[2016-07-19] MEDS: guaiFENesin/D-METHORPHAN HB 10 ML UNIT-DOSE CUPS PO PRN (21:53)
[2016-07-19] MEDS: ACETAMINOPHEN 325 MG TABLET (FP) PO PRN (21:53)
[2016-07-19] MEDS: THIAMINE HCL 100 MG TABLET (FP) PO SCH (21:54)
[2016-07-20] MEDS: GABAPENTIN 300 MG PO SCH ×3 (06:04→21:10)
[2016-07-20] MEDS: CYCLOBENZAPRINE HCL 10 MG TABLET (FP) PO SCH ×3 (06:04→21:08)
[2016-07-20] MEDS: IBUPROFEN 400 MG TABLET (FP) PO PRN (06:05)
[2016-07-20] MEDS: AMOX TR/POT CLAV 875MG/125MG TABLETS (FP) PO SCH ×2 (07:14→16:58)
[2016-07-20] MEDS: PANTOPRAZOLE 40 MG TABLET (FP) PO SCH (09:45)
[2016-07-20] MEDS: PRENATAL VITAMINS W/ FOLIC ACID TABLET (FP) PO SCH (09:45)
[2016-07-20] MEDS: CLOTRIMAZOLE 1% CREAM 15 GM TUBE TP SCH ×2 (09:45→21:10)
[2016-07-20] MEDS: NICOTINE 21 MG/24 HOURS TOPICAL PATCH TD SCH (09:46)
[2016-07-20] MEDS: LIDOCAINE 5% TOPICAL PATCH TP SCH (09:46)
[2016-07-20] MEDS: METHYL SALICYLATE/MENTHOL OINT 30 GM TUBE TP SCH (09:46)
[2016-07-20] MEDS: NICOTINE POLACRILEX 2 MG GUM BC PRN ×2 (09:47→13:14)
[2016-07-20] MEDS: THIAMINE HCL 100 MG TABLET (FP) PO SCH (21:08)
[2016-07-21] MEDS: GABAPENTIN 300 MG PO SCH ×3 (06:27→21:25)
[2016-07-21] MEDS: CYCLOBENZAPRINE HCL 10 MG TABLET (FP) PO SCH ×3 (06:28→21:25)
[2016-07-21] MEDS: AMOX TR/POT CLAV 875MG/125MG TABLETS (FP) PO SCH ×2 (07:09→16:56)
[2016-07-21] MEDS ORDERED: PT OWN MED DRAWER 7, Y5N ONE (09:02)
[2016-07-21] MEDS: PANTOPRAZOLE 40 MG TABLET (FP) PO SCH (10:21)
[2016-07-21] MEDS: PRENATAL VITAMINS W/ FOLIC ACID TABLET (FP) PO SCH (10:21)
[2016-07-21] MEDS: LIDOCAINE 5% TOPICAL PATCH TP SCH (10:22)
[2016-07-21] MEDS: CLOTRIMAZOLE 1% CREAM 15 GM TUBE TP SCH ×2 (10:23→21:26)
[2016-07-21] MEDS: METHYL SALICYLATE/MENTHOL OINT 30 GM TUBE TP SCH (10:23)
[2016-07-21] MEDS: NICOTINE POLACRILEX 2 MG GUM BC PRN (10:23)
[2016-07-21] MEDS: NICOTINE 21 MG/24 HOURS TOPICAL PATCH TD SCH (10:24)
[2016-07-21] MEDS: IBUPROFEN 400 MG TABLET (FP) PO PRN (21:24)
[2016-07-21] MEDS: diphenhydrAMINE HCL 50 MG CAPSULE PO PRN (21:24)
[2016-07-21] MEDS: THIAMINE HCL 100 MG TABLET (FP) PO SCH (21:26)
[2016-07-22] MEDS: GABAPENTIN 300 MG PO SCH ×3 (06:34→21:29)
[2016-07-22] MEDS: CYCLOBENZAPRINE HCL 10 MG TABLET (FP) PO SCH ×3 (06:34→21:29)
[2016-07-22] MEDS: AMOX TR/POT CLAV 875MG/125MG TABLETS (FP) PO SCH ×2 (07:41→19:16)
[2016-07-22] MEDS ORDERED: PT OWN MED DRAWER 7, Y5N ONE ×2 (08:40→22:36)
[2016-07-22] MEDS: NICOTINE 21 MG/24 HOURS TOPICAL PATCH TD SCH (09:47)
[2016-07-22] MEDS: PRENATAL VITAMINS W/ FOLIC ACID TABLET (FP) PO SCH (09:47)
[2016-07-22] MEDS: PANTOPRAZOLE 40 MG TABLET (FP) PO SCH (09:47)
[2016-07-22] MEDS: METHYL SALICYLATE/MENTHOL OINT 30 GM TUBE TP SCH (09:49)
[2016-07-22] MEDS: CLOTRIMAZOLE 1% CREAM 15 GM TUBE TP SCH ×2 (09:49→22:30)
[2016-07-22] MEDS: LIDOCAINE 5% TOPICAL PATCH TP SCH (09:49)
[2016-07-22] MEDS: THIAMINE HCL 100 MG TABLET (FP) PO SCH (21:29)
[2016-07-22] MEDS: IBUPROFEN 400 MG TABLET (FP) PO PRN (21:30)
[2016-07-22] MEDS: diphenhydrAMINE HCL 50 MG CAPSULE PO PRN (23:38)
[2016-07-23] MEDS: CYCLOBENZAPRINE HCL 10 MG TABLET (FP) PO SCH ×3 (06:34→21:27)
[2016-07-23] MEDS: GABAPENTIN 300 MG PO SCH ×3 (06:35→21:27)
[2016-07-23] MEDS: NICOTINE 21 MG/24 HOURS TOPICAL PATCH TD SCH (09:50)
[2016-07-23] MEDS: PRENATAL VITAMINS W/ FOLIC ACID TABLET (FP) PO SCH (09:50)
[2016-07-23] MEDS: PANTOPRAZOLE 40 MG TABLET (FP) PO SCH (09:50)
[2016-07-23] MEDS: LIDOCAINE 5% TOPICAL PATCH TP SCH (09:51)
[2016-07-23] MEDS: CLOTRIMAZOLE 1% CREAM 15 GM TUBE TP SCH ×2 (09:51→21:28)
[2016-07-23] MEDS: METHYL SALICYLATE/MENTHOL OINT 30 GM TUBE TP SCH (09:51)
[2016-07-23] MEDS: IBUPROFEN 400 MG TABLET (FP) PO PRN ×2 (09:52→18:05)
[2016-07-23 10:19] LABS: MCH 29.8 pg (25.7-33.7); MCHC 33.4 g/dl (32.0-35.9); MEAN CELL VOLUME 89.5 fl (80-96); MEAN PLT VOLUME 12.4 fl (7.5-11.1); PLATELET COUNT 143 K/MM3 (134-434); WHITE BLOOD COUNT 8.2 K/mm3 (4.0-10.0)
[2016-07-23] MEDS: NICOTINE POLACRILEX 2 MG GUM BC PRN (18:07)
[2016-07-23] MEDS: THIAMINE HCL 100 MG TABLET (FP) PO SCH (21:27)
[2016-07-23] MEDS: diphenhydrAMINE HCL 50 MG CAPSULE PO PRN (21:28)
[2016-07-24] MEDS: GABAPENTIN 300 MG PO SCH ×2 (06:17→14:21)
[2016-07-24] MEDS: CYCLOBENZAPRINE HCL 10 MG TABLET (FP) PO SCH ×3 (06:18→21:31)
[2016-07-24] MEDS: PANTOPRAZOLE 40 MG TABLET (FP) PO SCH (09:33)
[2016-07-24] MEDS: PRENATAL VITAMINS W/ FOLIC ACID TABLET (FP) PO SCH (09:33)
[2016-07-24] MEDS ORDERED: PT OWN MED DRAWER 7, Y5N ONE (09:35)
[2016-07-24] MEDS: LIDOCAINE 5% TOPICAL PATCH TP SCH (09:35)
[2016-07-24] MEDS: METHYL SALICYLATE/MENTHOL OINT 30 GM TUBE TP SCH (09:36)
[2016-07-24] MEDS: CLOTRIMAZOLE 1% CREAM 15 GM TUBE TP SCH ×2 (09:37→21:32)
[2016-07-24] MEDS: NICOTINE 21 MG/24 HOURS TOPICAL PATCH TD SCH (09:37)
[2016-07-24] MEDS: NICOTINE POLACRILEX 2 MG GUM BC PRN (09:37)
[2016-07-24] MEDS: IBUPROFEN 400 MG TABLET (FP) PO PRN (14:21)
[2016-07-24] MEDS: GABAPENTIN 400 MG CAPSULE (FP) PO SCH ×2 (15:46→21:31)
[2016-07-24] MEDS: THIAMINE HCL 100 MG TABLET (FP) PO SCH (21:31)
[2016-07-24] MEDS: diphenhydrAMINE HCL 50 MG CAPSULE PO PRN (21:46)
[2016-07-25] MEDS: GABAPENTIN 400 MG CAPSULE (FP) PO SCH ×3 (06:11→21:42)
[2016-07-25] MEDS: CYCLOBENZAPRINE HCL 10 MG TABLET (FP) PO SCH ×3 (06:11→21:42)
[2016-07-25] MEDS: CLOTRIMAZOLE 1% CREAM 15 GM TUBE TP SCH ×2 (09:38→21:54)
[2016-07-25] MEDS: LIDOCAINE 5% TOPICAL PATCH TP SCH (09:38)
[2016-07-25] MEDS: PANTOPRAZOLE 40 MG TABLET (FP) PO SCH (09:38)
[2016-07-25] MEDS: PRENATAL VITAMINS W/ FOLIC ACID TABLET (FP) PO SCH (09:38)
[2016-07-25] MEDS: METHYL SALICYLATE/MENTHOL OINT 30 GM TUBE TP SCH (09:39)
[2016-07-25] MEDS: IBUPROFEN 400 MG TABLET (FP) PO PRN ×2 (09:39→21:43)
[2016-07-25] MEDS: NICOTINE POLACRILEX 2 MG GUM BC PRN (09:40)
[2016-07-25] MEDS: NICOTINE 21 MG/24 HOURS TOPICAL PATCH TD SCH (09:42)
[2016-07-25] MEDS: diphenhydrAMINE HCL 50 MG CAPSULE PO PRN (21:42)
[2016-07-25] MEDS: THIAMINE HCL 100 MG TABLET (FP) PO SCH (21:42)
[2016-07-26] MEDS: CYCLOBENZAPRINE HCL 10 MG TABLET (FP) PO SCH ×3 (06:20→21:36)
[2016-07-26] MEDS: GABAPENTIN 400 MG CAPSULE (FP) PO SCH ×3 (06:20→21:36)
[2016-07-26] MEDS: IBUPROFEN 400 MG TABLET (FP) PO PRN ×2 (06:22→15:20)
[2016-07-26] MEDS: PRENATAL VITAMINS W/ FOLIC ACID TABLET (FP) PO SCH (09:50)
[2016-07-26] MEDS: LIDOCAINE 5% TOPICAL PATCH TP SCH (09:50)
[2016-07-26] MEDS: PANTOPRAZOLE 40 MG TABLET (FP) PO SCH (09:50)
[2016-07-26] MEDS: METHYL SALICYLATE/MENTHOL OINT 30 GM TUBE TP SCH (09:51)
[2016-07-26] MEDS: NICOTINE 21 MG/24 HOURS TOPICAL PATCH TD SCH (09:51)
[2016-07-26] MEDS: NICOTINE POLACRILEX 2 MG GUM BC PRN (09:55)
[2016-07-26] MEDS: ACETAMINOPHEN 325 MG TABLET (FP) PO PRN (10:26)
[2016-07-26] MEDS: CLOTRIMAZOLE 1% CREAM 15 GM TUBE TP SCH ×2 (12:15→21:36)
[2016-07-26] MEDS: THIAMINE HCL 100 MG TABLET (FP) PO SCH (21:36)
[2016-07-26] MEDS ORDERED: PT OWN MED DRAWER 7, Y5N ONE (21:37)
[2016-07-27] MEDS: GABAPENTIN 400 MG CAPSULE (FP) PO SCH ×3 (06:26→21:25)
[2016-07-27] MEDS: CYCLOBENZAPRINE HCL 10 MG TABLET (FP) PO SCH ×3 (06:26→21:24)
[2016-07-27] MEDS: LIDOCAINE 5% TOPICAL PATCH TP SCH (09:46)
[2016-07-27] MEDS: CLOTRIMAZOLE 1% CREAM 15 GM TUBE TP SCH ×2 (09:46→22:12)
[2016-07-27] MEDS: PRENATAL VITAMINS W/ FOLIC ACID TABLET (FP) PO SCH (09:46)
[2016-07-27] MEDS: NICOTINE 21 MG/24 HOURS TOPICAL PATCH TD SCH (09:46)
[2016-07-27] MEDS: PANTOPRAZOLE 40 MG TABLET (FP) PO SCH (09:46)
[2016-07-27] MEDS: IBUPROFEN 400 MG TABLET (FP) PO PRN ×2 (09:47→21:24)
[2016-07-27] MEDS: NICOTINE POLACRILEX 2 MG GUM BC PRN (09:49)
[2016-07-27] MEDS: METHYL SALICYLATE/MENTHOL OINT 30 GM TUBE TP SCH (10:32)
[2016-07-27] MEDS: THIAMINE HCL 100 MG TABLET (FP) PO SCH (21:24)
[2016-07-28] MEDS: GABAPENTIN 400 MG CAPSULE (FP) PO SCH ×3 (06:26→21:33)
[2016-07-28] MEDS: CYCLOBENZAPRINE HCL 10 MG TABLET (FP) PO SCH ×3 (06:26→21:33)
--- NOTE | 2016-07-28 09:31 | PN ---
Psychiatric Progress Note Vital Signs: Vital Signs Period Temp Pulse Resp BP Sys/Alexander Pulse Ox Last 24 Hr 98 F 99 18-20 137/86 Date of Session: 07/28/16 Chief Complaint:: Discharge Note HPI: Patient addressing Opoid, Sedative and Cannabid Dependencr comorbid with Nicotine Dependence and Depressive Disorder ROS: GERD, HTN were medicaly managed Current Medications: Active Medications Generic Name Dose Route Start Last Admin Trade Name Freq PRN Reason Stop Dose Admin Acetaminophen 650 mg 07/14/16 16:14 07/26/16 10:26 Tylenol - PO 650 mg Q4H PRN Administration PAIN Al Hydroxide/Mg Hydroxide 30 ml 07/14/16 16:14 Mylanta Oral Suspension - PO Q6H PRN DYSPEPSIA Bupropion HCl 150 mg 07/17/16 06:00 07/28/16 06:26 Wellbutrin Xl - PO 150 mg DAILY@0600 MARILOU Administration Bupropion HCl 300 mg 07/17/16 06:00 07/28/16 06:26 Wellbutrin Xl - PO 300 mg DAILY@0600 MARILOU Administration Clotrimazole 1 applic 07/14/16 22:00 07/27/16 22:12 Lotrimin 1% Cream - TP Not Given BID MARILOU Colloidal Oatmeal 1 applic 07/14/16 16:16 07/17/16 09:36 Aveeno Soap - TP 1 applic DAILY PRN Administration HYGEINE Cyclobenzaprine HCl 10 mg 07/17/16 22:00 07/28/16 06:26 Flexeril - PO 10 mg TID MARILOU Administration Diphenhydramine HCl 50 mg 07/14/16 16:14 07/25/16 21:42 Benadryl - PO 50 mg HSMR1 PRN Administration INSOMNIA Eucalyptus/Menthol/Phenol/Sorbitol 1 each 07/14/16 16:14 Cepastat Lozenge - MM Q4H PRN SORE THROAT Gabapentin 1,200 mg 07/24/16 15:10 07/28/16 06:26 Neurontin - PO 1,200 mg TID MARILOU Administration Guaifenesin 10 ml 07/14/16 16:14 07/19/16 21:53 Robitussin Dm - PO 10 ml Q6H PRN Administration COUGH Hydroxyzine Pamoate 50 mg 07/14/16 16:14 07/17/16 21:27 Vistaril - PO 50 mg Q4H PRN Administration AGITATION Ibuprofen 800 mg 07/24/16 14:04 07/27/16 21:24 Motrin - PO 800 mg Q8H PRN Administration PAIN Lidocaine 1 patch 07/16/16 10:00 07/27/16 09:46 Lidoderm Patch - TP 1 patch DAILY MARILOU Administration Loperamide HCl 4 mg 07/14/16 16:14 Imodium - PO Q6H PRN DIARRHEA Magnesium Citrate 300 ml 07/14/16 16:14 Citroma - PO Q48H PRN CONSTIPATION Magnesium Hydroxide 30 ml 07/14/16 16:14 Milk Of Magnesia - PO DAILY PRN CONSTIPATION Methyl Salicylate 1 applic 07/16/16 10:00 07/27/16 10:32 Guero-Tavera - TP Not Given DAILY MARILOU Nicotine 21 mg 07/14/16 16:45 07/27/16 09:46 Nicoderm Patch - TD Not Given DAILY MARILOU Nicotine Polacrilex 2 mg 07/14/16 16:14 07/27/16 09:49 Nicorette Gum - BC 2 mg Q2H PRN Administration NICOTINE REPLACEMENT RX Pantoprazole Sodium 40 mg 07/15/16 10:00 07/27/16 09:46 Protonix - PO 40 mg DAILY MARILOU Administration Multivit/Folic Acid/Iron 1 tab 07/15/16 10:00 07/27/16 09:46 Vitamins (Sjr) - PO 1 tab DAILY MARILOU Administration Pseudoephedrine/Triprolidine 1 combo 07/14/16 16:14 07/15/16 06:03 Actifed - PO 1 combo TID PRN Administration NASAL CONGESTION Thiamine HCl 100 mg 07/14/16 22:00 07/27/16 21:24 Vitamin B1 - PO 100 mg HS MARILOU Administration Current Side Effect: No Lab tests ordered: Yes Lab tests reviewed: Yes Provider note:: Patient will complete this program on 07/29/16. 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 He verbalized understanding of the negative consequences of his addiction and from his participation in this program, he has learned the importance to be patient. He responded well to Wellbutrin XL 450 mg po daily. Script for 30 days supply of that medication will be electronically transmitted to [facility] in [place], [place]. He is stable for discharge on 07/29/16 Total face to face time:: 35 Mental Status Exam - Mental Status Exam Alert and Oriented to: Time, Place, Person Cognitive Function: Fair Patient Appearance: Well Groomed Mood: Hopeful, Euthymic Affect: Appropriate Patient Behavior: Cooperative Speech Pattern: Clear Voice Loudness: Normal Thought Process: Intact, Goal Oriented Thought Disorder: Not Present Hallucinations: Denies Suicidal Ideation: Denies Homicidal Ideation: Denies Insight/Judgement: Fair Sleep: Well Appetite: Good Muscle strength/Tone: Normal Gait/Station: Normal Psychiatric Treatment Plan - Problem List (1) Opioid dependence Qualifiers: Substance use status: uncomplicated Qualified Code(s): F11.20 - Opioid dependence, uncomplicated (4) Nicotine dependence Qualifiers: Nicotine product type: cigarettes Substance use status: uncomplicated Qualified Code(s): F17.210 - Nicotine dependence, cigarettes, uncomplicated (7) GERD (gastroesophageal reflux disease) Qualifiers: Esophagitis presence: without esophagitis Qualified Code(s): K21.9 - Gastro-esophageal reflux disease without esophagitis (8) History of hypertension Initial treatment plan: Patient will be discharged tomorrow and will be referred to [facility] in [place], [place] for detention treament.
[2016-07-28] MEDS: PRENATAL VITAMINS W/ FOLIC ACID TABLET (FP) PO SCH (09:39)
[2016-07-28] MEDS: PANTOPRAZOLE 40 MG TABLET (FP) PO SCH (09:39)
[2016-07-28] MEDS: IBUPROFEN 400 MG TABLET (FP) PO PRN ×2 (09:40→21:32)
[2016-07-28] MEDS: LIDOCAINE 5% TOPICAL PATCH TP SCH (09:41)
[2016-07-28] MEDS: CLOTRIMAZOLE 1% CREAM 15 GM TUBE TP SCH ×2 (09:42→21:34)
[2016-07-28] MEDS: METHYL SALICYLATE/MENTHOL OINT 30 GM TUBE TP SCH (09:43)
[2016-07-28] MEDS: NICOTINE 21 MG/24 HOURS TOPICAL PATCH TD SCH (10:55)
[2016-07-28] MEDS: THIAMINE HCL 100 MG TABLET (FP) PO SCH (21:33)
[2016-07-29] MEDS ORDERED: PT OWN MED DRAWER 7, Y5N ONE (04:12)
[2016-07-29] MEDS: CYCLOBENZAPRINE HCL 10 MG TABLET (FP) PO SCH (05:55)
[2016-07-29] MEDS: GABAPENTIN 400 MG CAPSULE (FP) PO SCH (05:55)
[2016-07-29 06:35] VITALS: BP 141/94; PULSE 90; TEMP 98.5
[2016-07-29] MEDS: IBUPROFEN 400 MG TABLET (FP) PO PRN (07:19)
== END 2016-07-29 07:20 | disposition home or self-care (01) | DRG 772 ==
LOC: YASAS 11:12 → Y3W 15:11
PROVIDERS: ADMIT Psychiatry & Neurology Psychiatry; ATTEND Psychiatry & Neurology Psychiatry
PROC: HZ42ZZZ Group Counseling for Substance Abuse Treatment, Cognitive-Behavioral (ICD-10-PCS; principal; 2016-07-29)
DX: F11.20 Opioid dependence, uncomplicated (principal); F13.20 Sedative, hypnotic or anxiolytic dependence, uncomplicated; F12.20 Cannabis dependence, uncomplicated; F17.210 Nicotine dependence, cigarettes, uncomplicated; F39 Unspecified mood [affective] disorder; F32.89 Other specified depressive episodes; K21.9 Gastro-esophageal reflux disease without esophagitis
CPT/HCPCS: 36415; 81003; 81015; 85027; 93005; 93010

== ENCOUNTER 2018-03-12 11:36 | Inpatient (IN) | payer OTHER ==
[2018-03-12 12:09] VITALS: BMI 35.4
--- NOTE | 2018-03-12 14:27 | HP ---
COWS - Scale Resting Pulse: 1= CO 81-100 Sweatin=Flushed/Facial Moisture Restless Observation: 1= Difficult to Sit Still Pupil Size: 1= Pupils >than Normal Bone or Joint Aches: 1= Mild Discomfort Runny Nose/ Eye Tearin= Nasal Congestion GI Upset > 30mins: 0= None Tremor Observation: 0= None Yawning Observation: 0= None Anxiety or Irritability: 1=Feels Anxious/Irritable Goose Flesh Skin: 0=Smooth Skin COWS Score: 8 CIWA Score Nausea/Vomitin Muscle Tremors: None Anxiety: 3 Agitation: 2 Paroxysmal Sweats: 3 Orientation: 0-Oriented Tacttile Disturbances: 2-Mild Itch/Numbness/Burn Auditory Disturbances: 0-None Visual Disturbances: 0-None Headache: 0-None Present CIWA-Ar Total Score: 12 - Admission Criteria OASAS Guidelines: Admission for Medically Managed Detox: Requires at least one of the followin. CIWA greater than 12 2. Seizures within the past 24 hours 3. Delirium tremens within the past 24 hours 4. Hallucinations within the past 24 hours 5. Acute intervention needed for co occurring medical disorder 6. Acute intervention needed for co occurring psychiatric disorder 7. Severe withdrawal that cannot be handled at a lower level of care (continued vomiting, continued diarrhea, abnormal vital signs) requiring intravenous medication and/or fluids 8. Patient presents the following: CIWA greater than 12 Admission Criteria Met: Admission criteria met Admission ROS [facility] Chief Complaint: Detox from heroin Allergies/Adverse Reactions: Allergies Allergy/AdvReac Type Severity Reaction Status Date / Time No Known Allergies Allergy Verified 03/12/18 12:32 History of Present Illness: Patient is coming for detox for heroin. Patient uses 1-2 bundles per day, for the last several months. Patient started using many years back. Patient experiences anxiety, shaking, and sweating when he does not use. Marijuana: smokes every day 2-4 blunts. first smoked marijuana at age [age] years old Valium: used the 2 days ago. alcohol: every day, a pint of [place]. when not drinking get " dopesick", off and on for several years. denies blackouts, seizures, falls. tobacco: 1 ppd for "several years" PMHx: torn labrum in R shoulder, GERD PSx: denies Psych: depression ( wellbutrin 450mg ER) Allergies: denies Meds: Gabapentin 3600mg per day Exam Limitations: No Limitations, Clinical Condition - Ebola screening Have you traveled outside of the country in the last 21 days: No Have you had contact with anyone from an Ebola affected area: No Have you been sick,other than usual withdrawal symptoms: No Do you have a fever: No - Review of Systems Constitutional: Changes in sleep (poor sleep), Other (wt gain 40-50 lbs over the last 6 months) EENT: reports: No Symptoms Reported Respiratory: reports: No Symptoms reported Cardiac: reports: No Symptoms Reported GI: reports: Nausea : reports: No Symptoms Reported Musculoskeletal: reports: Muscle Pain Integumentary: reports: Other (left wrist cut) Neuro: reports: No Symptoms reported Endocrine: reports: No Symptoms Reported Psychiatric: reports: Orientated x3, Anxious Other Systems: Reviewed and Negative Patient History - Patient Medical History Hx Anemia: No Hx Asthma: No Hx Chronic Obstructive Pulmonary Disease (COPD): No Hx Cancer: No Hx Cardiac Disorders: No Hx Congestive Heart Failure: No Hx Hypertension: No Hx Hypercholesterolemia: No Hx Pacemaker: No HX Cerebrovascular Accident: No Hx Seizures: No Hx Dementia: No Hx Diabetes: No Hx Gastrointestinal Disorders: Yes (acid reflux) Hx Liver Disease: No Hx Genitourinary Disorders: No Hx Sexually Transmitted Disorders: No Hx Renal Disease (ESRD): No Hx Thyroid Disease: No Hx Human Immunodeficiency Virus (HIV): No (LAST 05/09 NEGATIVE) Hx Hepatitis C: No (LAST TESTED: 02/2016: NEGATIVE.) Hx Depression: Yes Hx Suicide Attempt: No Hx Bipolar Disorder: No Hx Schizophrenia: No - Patient Surgical History Past Surgical History: No Hx Neurologic Surgery: No Hx Cataract Extraction: No Hx Cardiac Surgery: No Hx Lung Surgery: No Hx Breast Surgery: No Hx Breast Biopsy: No Hx Abdominal Surgery: No Hx Appendectomy: No Hx Cholecystectomy: No Hx Genitourinary Surgery: No Hx Section: No Hx Orthopedic Surgery: No Anesthesia Reaction: Yes (Woke prematurely from Anesthesia used in Shoulder surgery: 2016.) - PPD History Previous Implant?: Yes Implanted On Prior R Admission?: Yes Date: 05/11/16 Results: 0 mm - Reproductive History Patient is a Female of Child Bearing Age (11 -55 yrs old): No - Smoking Cessation Smoking history: Current every day smoker Have you smoked in the past 12 months: Yes Aproximately how many cigarettes per day: 20 Cigars Per Day: 0 Hx Chewing Tobacco Use: No Initiated information on smoking cessation: Yes 'Breaking Loose' booklet given: 03/12/18 - Substance & Tx. History Hx Alcohol Use: Yes Hx Substance Use: Yes Substance Use Type: Alcohol, Heroin, Marijuana Hx Substance Use Treatment: Yes ( [facility]) - Substances Abused Heroin Route: Injection Frequency: Daily Amount used: 10-20 bags Age of first use: 25 Date of Last Use: 03/10/18 Alcohol-cognac Route: Oral Frequency: Daily Amount used: 1 pt. Age of first use: 10 Date of Last Use: 03/11/18 Street methadone Route: Oral Frequency: 3-6 times per week Amount used: 80 mg. Age of first use: 35 Date of Last Use: 03/11/18 Valium Frequency: 3-6 times per week Amount used: 20 mg. Age of first use: 34 Date of Last Use: 03/11/18 Family Disease History - Family Disease History Family Disease History: Heart Disease: Mother (HTN, Osteoporosis.), Respiratory : Son (Asthma.), Other: Father (Osteoarthritis.), Mother Admission Physical Exam BHS - Vital Signs Vital Signs: Vital Signs - 24 hr 03/12/18 11:48 Temperature 99.3 F Pulse Rate 83 Respiratory 18 Rate Blood Pressure 120/70 - Physical General Appearance: Yes: Within Normal Limits, Nourished, Appropriately Dressed , Mild Distress HEENTM: Yes: EOMI, Hearing grossly Normal, Normocephalic, Normal Voice, LUC, Tm 's normal Respiratory: Yes: Chest Non-Tender, Lungs Clear, Normal Breath Sounds Neck: Yes: No masses,lesions,Nodules, Trachea in good position Breast: Yes: Breast Exam Deferred Cardiology: Yes: Regular Rhythm, Regular Rate, S1, S2 Abdominal: Yes: Normal Bowel Sounds, Non Tender, Flat, Soft Genitourinary: Yes: Within Normal Limits Back: Yes: CVA Tenderness (L) Musculoskeletal: Yes: full range of Motion Extremities: Yes: Normal Capillary Refill, Normal Range of Motion, Non-Tender Neurological: Yes: intake coordinator II-XII NML intact, Fully Oriented, Alert, Motor Strength 5/5, Normal Mood/Affect Integumentary: Yes: Other (track doran noted bilaterally, cut noted on left forearm) Lymphatic: Yes: Within Normal Limits - Diagnostic (1) Chronic alcoholism Current Visit: Yes Status: Chronic (2) Opioid dependence with withdrawal Current Visit: No Status: Chronic (3) Benzodiazepine dependence Current Visit: No Status: Chronic (4) Cannabis dependence, uncomplicated Current Visit: No Status: Chronic (5) Rotator cuff injury Current Visit: No Status: Chronic (6) Anxiety Current Visit: Yes Status: Chronic (7) Depressive disorder Current Visit: Yes Status: Chronic (8) GERD (gastroesophageal reflux disease) Current Visit: Yes Status: Chronic Qualifiers: Esophagitis presence: without esophagitis Qualified Code(s): K21.9 - Gastro -esophageal reflux disease without esophagitis (9) Injury of lower back Current Visit: Yes Status: Chronic Qualifiers: Encounter type: sequela Qualified Code(s): S39.92XS - Unspecified injury of lower back, sequela (10) Nicotine dependence Current Visit: Yes Status: Chronic Qualifiers: Nicotine product type: cigarettes Substance use status: uncomplicated Qualified Code(s): F17.210 - Nicotine dependence, cigarettes, uncomplicated [facility]HS Breath Alcohol Content Breath Alcohol Content: 0 Urine Drug Screen - Results Drug Screen Negative: No Urine Drug Screen Results: THC-Marijuana, OPI-Opiates, BZO-Benzodiazepines, MTD- Methadone
[2018-03-12] MEDS ORDERED: ACETAMINOPHEN 325 MG TABLET (FP) PO PRN (14:51)
[2018-03-12] MEDS ORDERED: guaiFENesin/D-METHORPHAN HB 10 ML UNIT-DOSE CUPS PO PRN (14:51)
[2018-03-12] MEDS ORDERED: MAGNESIUM CITRATE 300 ML BOTTLE PO PRN (14:51)
[2018-03-12] MEDS ORDERED: IBUPROFEN 400 MG TABLET (FP) PO PRN (14:51)
[2018-03-12] MEDS ORDERED: MENTHOL/PHENOL 1 EACH UD MM PRN (14:51)
[2018-03-12] MEDS ORDERED: MAG HYDROX/AL HYDROX/SIMETH 30 ML UNIT-DOSE CUP PO PRN (14:51)
[2018-03-12] MEDS ORDERED: P-EPHED 60MG/TRIPROLIDI 2.5MG TABLET PO PRN (14:51)
[2018-03-12] MEDS ORDERED: MAGNESIUM HYDROX 2400MG/30ML ORAL SUSPENSION 30 ML CUP PO PRN (14:51)
[2018-03-12] MEDS ORDERED: chlordiazePOXIDE HCL 25 MG CAPSULE PO PRN (14:51)
[2018-03-12] MEDS ORDERED: LOPERAMIDE HCL 2 MG CAPSULE PO PRN (14:51)
[2018-03-12] MEDS ORDERED: hydrOXYzine PAMOATE 25 MG CAPSULE (FP) PO PRN (14:51)
[2018-03-12] MEDS ORDERED: METHADONE HCL 10 MG TABLET (FOR DETOX USE ONLY) PO ONE ×2 (15:40→23:00)
[2018-03-12] MEDS ORDERED: HYDROCORTISONE 1% TOPICAL CREAM 30 GM TUBE TP PRN (15:45)
[2018-03-12] MEDS: NICOTINE POLACRILEX 4 MG GUM BUC PRN (16:55)
[2018-03-12 17:08] LABS: URINE APPEARANCE CLEAR; URINE BILIRUBIN NEGATIVE (<2.0 mg/dL); URINE COLOR YELLOW; URINE GLUCOSE (UA) NEGATIVE (NEGATIVE); URINE KETONE NEGATIVE (NEGATIVE); URINE LEUK ESTERASE NEGATIVE (NEGATIVE); URINE NITRITE NEGATIVE (NEGATIVE); URINE PROTEIN 1+ (NEGATIVE); URINE UROBILINOGEN NEGATIVE mg/dL (0.2-1.0)
[2018-03-12 17:12] LABS: EPI CELLS RARE /HPF (FEW); URINE MUCUS MANY
[2018-03-12] MEDS: chlordiazePOXIDE HCL 25 MG CAPSULE PO SCH ×2 (17:29→22:37)
[2018-03-12] MEDS: NICOTINE 21 MG/24 HOURS TOPICAL PATCH TD SCH (17:31)
[2018-03-12] MEDS ORDERED: MELATONIN 5 MG TABLETS PO PRN (22:00)
[2018-03-12] MEDS: IBUPROFEN 400 MG TABLET (FP) PO SCH (22:36)
[2018-03-12] MEDS: BACITRACIN 0.9 GM PACKET TP SCH (22:36)
[2018-03-12] MEDS: THIAMINE HCL 100 MG TABLET (FP) PO SCH (22:36)
[2018-03-12] MEDS: GABAPENTIN 300 MG CAPSULE (FP) PO SCH (22:37)
[2018-03-13] MEDS: GABAPENTIN 300 MG CAPSULE (FP) PO SCH ×3 (05:26→22:19)
[2018-03-13] MEDS: IBUPROFEN 400 MG TABLET (FP) PO SCH ×3 (05:26→22:19)
[2018-03-13] MEDS: chlordiazePOXIDE HCL 25 MG CAPSULE PO SCH ×4 (05:28→22:18)
--- NOTE | 2018-03-13 09:14 | CONSULT ---
[facility] Psychiatric Consult - Data Date of interview: 03/13/17 Admission source: [facility] Identifying data: Patient is a 37 year old single male, father of one, unemployed, and currently resides with a friend. This is one of multiple admissions for patient. Patient admitted to for opiate dependence. Substance Abuse History: Smoking Cessation. Smoking history: Current every day smoker. Have you smoked in the past 12 months: Yes. Aproximately how many cigarettes per day: 20. Cigars Per Day: 0. Hx Chewing Tobacco Use: No. Initiated information on smoking cessation: Yes. 'Breaking Loose' booklet given : 03/12/18. - Substance & Tx. History. Hx Alcohol Use: Yes. Hx Substance Use : Yes. Substance Use Type: Alcohol, Heroin, Marijuana. Hx Substance Use Treatment: Yes ( [facility]). - Substances Abused. Heroin. Route: Injection. Frequency: Daily. Amount used: 10-20 bags. Age of first use: 25. Date of Last Use: 03/10/18. Alcohol-cognac. Route: Oral. Frequency: Daily. Amount used: 1 pt. Age of first use: 10. Date of Last Use: 03/11/18. Street methadone. Route: Oral. Frequency: 3-6 times per week. Amount used: 80 mg. Age of first use: 35. Date of Last Use: 03/11/18. Valium. Frequency: 3-6 times per week. Amount used: 20 mg. Age of first use: 34. Date of Last Use: 03/11/18 Medical History: Acid reflux Psychiatric History: Patient's [facility] He was diagnosed with MDD and started on Wellbutrin. [facility] he contined psychiatric care at [facility] in the [place]. Patient was receiving psychiatric care at [facility] but states he is now receiving his refills from his primary care physician. States last dose of wellbutrin 450mg XR was taken two days ago. Patient denies h/o suicide attempt. At present he reports feeling sad. Physical/Sexual Abuse/Trauma History: denies. Mental Status Exam - Mental Status Exam Alert and Oriented to: Time, Place, Person Cognitive Function: Good Patient Appearance: Well Groomed Mood: Euthymic Affect: Mood Congruent Patient Behavior: Appropriate, Cooperative Speech Pattern: Appropriate Voice Loudness: Normal Thought Process: Intact, Goal Oriented Thought Disorder: Not Present Hallucinations: Denies Suicidal Ideation: Denies Homicidal Ideation: Denies Insight/Judgement: Poor Sleep: Fair Appetite: Fair Muscle strength/Tone: Normal Gait/Station: Normal Psychiatric Findings - Problem List ([place] 1, 2,3) (1) Alcohol dependence with uncomplicated withdrawal Current Visit: Yes Status: Acute (2) Opioid dependence with withdrawal Current Visit: Yes Status: Acute (3) Depressive disorder Current Visit: Yes Status: Chronic (4) Nicotine dependence Current Visit: Yes Status: Chronic Qualifiers: Nicotine product type: cigarettes Substance use status: uncomplicated Qualified Code(s): F17.210 - Nicotine dependence, cigarettes, uncomplicated (5) Sedative hypnotic or anxiolytic dependence Current Visit: Yes Status: Acute - Initial Treatment Plan Initial Treatment Plan: Psychoeducation provided. Detoxification in progress. Will order Wellbutrin 450mg XR. Benefits and side effects discussed. Verbal consent given.
[2018-03-13 09:59] LABS: ALBUMIN 3.8 g/dl (3.4-5.0); ALK PHOS 86 U/L (45-117); ANION GAP 5 MMOL/L (8-16); BILIRUBIN,TOTAL 0.2 mg/dL (0.2-1); BLOOD UREA NITROGEN 13 mg/dL (7-18); CALCIUM 8.8 mg/dL (8.5-10.1); CHLORIDE 109 mmol/L (98-107); CO2 30 mmol/L (21-32); CREATININE 0.9 mg/dL (0.55-1.3); GLUCOSE,RANDOM 98 mg/dL (74-106); POTASSIUM 4.3 mmol/L (3.5-5.1); SGOT/AST 27 U/L (15-37); SGPT/ALT 50 U/L (13-61); SODIUM 143 mmol/L (136-145); TOT PROT 7.1 g/dl (6.4-8.2)
[2018-03-13] MEDS ORDERED: METHADONE HCL 10 MG TABLET (FOR DETOX USE ONLY) PO SCH (10:00)
[2018-03-13] MEDS ORDERED: NICOTINE 21 MG/24 HOURS TOPICAL PATCH TD SCH (10:00)
[2018-03-13 10:17] LABS: HEMATOCRIT 42.7 % (35.4-49); HEMOGLOBIN 14.5 GM/dL (11.7-16.9); MCH 30.7 pg (25.7-33.7); MEAN CELL VOLUME 90.1 fl (80-96); PLATELET COUNT 102 K/MM3 (134-434); RBC 4.74 M/mm3 (4.00-5.60); RDW 15.1 % (11.9-15.9); WHITE BLOOD COUNT 8.1 K/mm3 (4.0-10.0)
[2018-03-13] MEDS: BACITRACIN 0.9 GM PACKET TP SCH ×2 (10:17→22:18)
[2018-03-13] MEDS: PANTOPRAZOLE 40 MG TABLET (FP) PO SCH (10:17)
[2018-03-13] MEDS: PRENATAL VITAMINS W/ FOLIC ACID TABLET (FP) PO SCH (10:17)
[2018-03-13] MEDS: NICOTINE 21 MG/24 HOURS TOPICAL PATCH TD SCH (10:20)
--- NOTE | 2018-03-13 14:22 | PN ---
S CIWA - CIWA Score Nausea/Vomitin Muscle Tremors: None Anxiety: 4-Mod. Anxious/Guarded Agitation: 3 Paroxysmal Sweats: 3 Orientation: 0-Oriented Tacttile Disturbances: 0-None Auditory Disturbances: 0-None Visual Disturbances: 2-Mild Sensitivity Headache: 0-None Present CIWA-Ar Total Score: 15 S COWS - Scale Resting Pulse: 0= [place] 80 or Below Sweatin= Chills/Flushing Restless Observation: 1= Difficult to Sit Still Pupil Size: 0= Normal to Room Light Bone or Joint Aches: 0= None Runny Nose/ Eye Tearin= None GI Upset > 30mins: 2= Nausea/Diarrhea Tremor Observation of Outstretched Hands: 0= None Yawning Observation: 0= None Anxiety or Irritability: 2=Irritable/Anxious Goose Flesh Skin: 3=Piloerection COWS Score: 9 S Progress Note (SOAP) Subjective: Sweating, Fatigue, Nausea, Interrupted Sleep. Objective: PATIENT A & O X 3, OBSERVED AMBULATING ON UNIT. IN NO ACUTE DISTRESS. 03/13/18 14:20 Vital Signs Temperature 97.6 F 03/13/18 13:46 Pulse Rate 68 03/13/18 13:46 Respiratory Rate 18 03/13/18 13:46 Blood Pressure 115/78 03/13/18 13:46 O2 Sat by Pulse Oximetry (%) Laboratory Tests 03/12/18 03/12/18 03/13/18 15:41 16:30 05:40 WBC 8.1 RBC 4.74 Hgb 14.5 Hct 42.7 MCV 90.1 MCH 30.7 MCHC 34.0 RDW 15.1 Plt Count 102 L D MPV 14.0 H D Sodium Potassium Chloride Carbon Dioxide Anion Gap BUN Creatinine Creat Clearance w eGFR Random Glucose Calcium Total Bilirubin AST ALT Alkaline Phosphatase Total Protein Albumin Urine Color Yellow Urine Appearance Clear Urine pH 7.0 Ur Specific [place] 1.028 Urine Protein 1+ H Urine Glucose (UA) Negative Urine Ketones Negative Urine Blood Negative Urine Nitrite Negative Urine Bilirubin Negative Urine Urobilinogen Negative Ur Leukocyte Esterase Negative Urine WBC (Auto) 2 Urine RBC (Auto) 1 Ur Epithelial Cells Rare Urine Mucus Many RPR Titer HIV 1&2 Antibody Screen Negative HIV P24 Antigen Negative 03/13/18 03/13/18 05:40 05:40 WBC RBC Hgb Hct MCV MCH MCHC RDW Plt Count MPV Sodium 143 Potassium 4.3 Chloride 109 H Carbon Dioxide 30 Anion Gap 5 L BUN 13 Creatinine 0.9 Creat Clearance w eGFR > 60 Random Glucose 98 Calcium 8.8 Total Bilirubin 0.2 AST 27 ALT 50 Alkaline Phosphatase 86 Total Protein 7.1 Albumin 3.8 Urine Color Urine Appearance Urine pH Ur Specific [place] Urine Protein Urine Glucose (UA) Urine Ketones Urine Blood Urine Nitrite Urine Bilirubin Urine Urobilinogen Ur Leukocyte Esterase Urine WBC (Auto) Urine RBC (Auto) Ur Epithelial Cells Urine Mucus RPR Titer Nonreactive HIV 1&2 Antibody Screen HIV P24 Antigen LABS NOTED. PATIENT HAS HAD LOW PLATELET LEVEL ON PREVIOUS ADMISSIONS. 03/13/18 14:22 Assessment: 03/13/18 14:20 WITHDRAWAL SYMPTOMS. THROMBOCYTOPENIA. 03/13/18 14:21 Plan: CONTINUE DETOX. INCREASE DAILY PO FLUID INTAKE. PRN ZOFRAN SL FOR NAUSEA.
[2018-03-13] MEDS: ONDANSETRON *ODT* 4 MG TABLET SL PRN (17:26)
[2018-03-13] MEDS: THIAMINE HCL 100 MG TABLET (FP) PO SCH (22:19)
[2018-03-14] MEDS: chlordiazePOXIDE HCL 25 MG CAPSULE PO SCH ×2 (06:10→10:09)
[2018-03-14] MEDS: IBUPROFEN 400 MG TABLET (FP) PO SCH ×3 (06:10→22:04)
[2018-03-14] MEDS: GABAPENTIN 300 MG CAPSULE (FP) PO SCH ×3 (06:11→22:04)
[2018-03-14] MEDS: ONDANSETRON *ODT* 4 MG TABLET SL PRN ×2 (06:14→22:18)
[2018-03-14] MEDS: NICOTINE POLACRILEX 4 MG GUM BUC PRN ×3 (06:14→16:42)
[2018-03-14] MEDS: METHADONE HCL 5 MG TABLET (FOR DETOX USE ONLY) PO SCH (10:08)
[2018-03-14] MEDS: PANTOPRAZOLE 40 MG TABLET (FP) PO SCH (10:09)
[2018-03-14] MEDS: BACITRACIN 0.9 GM PACKET TP SCH ×2 (10:09→22:04)
[2018-03-14] MEDS: PRENATAL VITAMINS W/ FOLIC ACID TABLET (FP) PO SCH (10:09)
[2018-03-14] MEDS: NICOTINE 21 MG/24 HOURS TOPICAL PATCH TD SCH (10:10)
--- NOTE | 2018-03-14 15:07 | PN ---
S CIWA - CIWA Score Nausea/Vomitin Muscle Tremors: 2 Anxiety: 1-Mildly Anxious Agitation: 2 Paroxysmal Sweats: 3 Orientation: 0-Oriented Tacttile Disturbances: 0-None Auditory Disturbances: 0-None Visual Disturbances: 0-None Headache: 0-None Present CIWA-Ar Total Score: 13 BHS COWS - Scale Resting Pulse: 0= [place] 80 or Below Sweatin= Chills/Flushing Restless Observation: 1= Difficult to Sit Still Pupil Size: 0= Normal to Room Light Bone or Joint Aches: 2= Severe Diffuse Aches Runny Nose/ Eye Tearin= Nasal Congestion GI Upset > 30mins: 1= Stomach Cramp Tremor Observation of Outstretched Hands: 1= Tremor [place], Not Seen Yawning Observation: 0= None Anxiety or Irritability: 2=Irritable/Anxious Goose Flesh Skin: 0=Smooth Skin COWS Score: 9 BHS Progress Note (SOAP) Subjective: Sweating, vomiting, diarrhea Objective: 03/14/18 15:04 Last Vital Signs Temp Pulse Resp BP Pulse Ox 97.9 F 70 18 124/77 03/14/18 14:23 03/14/18 14:23 03/14/18 14:23 03/14/18 14:23 Laboratory Tests 03/12/18 03/12/18 03/13/18 15:41 16:30 05:40 WBC 8.1 RBC 4.74 Hgb 14.5 Hct 42.7 MCV 90.1 MCH 30.7 MCHC 34.0 RDW 15.1 Plt Count 102 L D MPV 14.0 H D Sodium Potassium Chloride Carbon Dioxide Anion Gap BUN Creatinine Creat Clearance w eGFR Random Glucose Calcium Total Bilirubin AST ALT Alkaline Phosphatase Total Protein Albumin Urine Color Yellow Urine Appearance Clear Urine pH 7.0 Ur Specific [place] 1.028 Urine Protein 1+ H Urine Glucose (UA) Negative Urine Ketones Negative Urine Blood Negative Urine Nitrite Negative Urine Bilirubin Negative Urine Urobilinogen Negative Ur Leukocyte Esterase Negative Urine WBC (Auto) 2 Urine RBC (Auto) 1 Ur Epithelial Cells Rare Urine Mucus Many RPR Titer HIV 1&2 Antibody Screen Negative HIV P24 Antigen Negative 03/13/18 03/13/18 05:40 05:40 WBC RBC Hgb Hct MCV MCH MCHC RDW Plt Count MPV Sodium 143 Potassium 4.3 Chloride 109 H Carbon Dioxide 30 Anion Gap 5 L BUN 13 Creatinine 0.9 Creat Clearance w eGFR > 60 Random Glucose 98 Calcium 8.8 Total Bilirubin 0.2 AST 27 ALT 50 Alkaline Phosphatase 86 Total Protein 7.1 Albumin 3.8 Urine Color Urine Appearance Urine pH Ur Specific [place] Urine Protein Urine Glucose (UA) Urine Ketones Urine Blood Urine Nitrite Urine Bilirubin Urine Urobilinogen Ur Leukocyte Esterase Urine WBC (Auto) Urine RBC (Auto) Ur Epithelial Cells Urine Mucus RPR Titer Nonreactive HIV 1&2 Antibody Screen HIV P24 Antigen Labs reviewed: plt 102, abnormal UA Assessment: 03/14/18 15:06 Withdrawal symptoms Noted with thrombocytopenia and abnormal UA Plan: Continue detox Thrombocytopenia: stable, possibly r/t PSA, follow up with PCP for monitoring Abnormal UA: encouraged PO water hydration, repeat UA
[2018-03-14] MEDS: chlordiazePOXIDE 5 MG CAPSULE PO SCH ×2 (16:40→22:04)
[2018-03-14] MEDS: THIAMINE HCL 100 MG TABLET (FP) PO SCH (22:04)
[2018-03-15] MEDS: chlordiazePOXIDE 5 MG CAPSULE PO SCH ×2 (05:16→10:24)
[2018-03-15] MEDS: GABAPENTIN 300 MG CAPSULE (FP) PO SCH ×3 (05:17→21:33)
[2018-03-15] MEDS: IBUPROFEN 400 MG TABLET (FP) PO SCH ×3 (06:20→21:34)
[2018-03-15] MEDS ORDERED: METHADONE HCL 10 MG TABLET (FOR DETOX USE ONLY) PO SCH (10:00)
--- NOTE | 2018-03-15 10:06 | PN ---
BHS Progress Note (SOAP) Subjective: feeling better preferred to leave detox unit tomorrow that less sweat mild tremor no body ache Objective: 03/15/18 10:05 Vital Signs Temperature 96.8 F L 03/15/18 09:03 Pulse Rate 82 03/15/18 09:03 Respiratory Rate 18 03/15/18 09:03 Blood Pressure 135/82 03/15/18 09:03 O2 Sat by Pulse Oximetry (%) Laboratory Last Values WBC 8.1 K/mm3 (4.0-10.0) 03/13/18 05:40 RBC 4.74 M/mm3 (4.00-5.60) 03/13/18 05:40 Hgb 14.5 GM/dL (11.7-16.9) 03/13/18 05:40 Hct 42.7 % (35.4-49) 03/13/18 05:40 MCV 90.1 fl (80-96) 03/13/18 05:40 MCH 30.7 pg (25.7-33.7) 03/13/18 05:40 MCHC 34.0 g/dl (32.0-35.9) 03/13/18 05:40 RDW 15.1 % (11.9-15.9) 03/13/18 05:40 Plt Count 102 K/MM3 (134-434) L D 03/13/18 05:40 MPV 14.0 fl (7.5-11.1) H D 03/13/18 05:40 Sodium 143 mmol/L (136-145) 03/13/18 05:40 Potassium 4.3 mmol/L (3.5-5.1) 03/13/18 05:40 Chloride 109 mmol/L (98-107) H 03/13/18 05:40 Carbon Dioxide 30 mmol/L (21-32) 03/13/18 05:40 Anion Gap 5 MMOL/L (8-16) L 03/13/18 05:40 BUN 13 mg/dL (7-18) 03/13/18 05:40 Creatinine 0.9 mg/dL (0.55-1.3) 03/13/18 05:40 Creat Clearance w eGFR > 60 (>60) 03/13/18 05:40 Random Glucose 98 mg/dL (74-106) 03/13/18 05:40 Calcium 8.8 mg/dL (8.5-10.1) 03/13/18 05:40 Total Bilirubin 0.2 mg/dL (0.2-1) 03/13/18 05:40 AST 27 U/L (15-37) 03/13/18 05:40 ALT 50 U/L (13-61) 03/13/18 05:40 Alkaline Phosphatase 86 U/L (45-117) 03/13/18 05:40 Total Protein 7.1 g/dl (6.4-8.2) 03/13/18 05:40 Albumin 3.8 g/dl (3.4-5.0) 03/13/18 05:40 Urine Color Yellow 03/12/18 16:30 Urine Appearance Clear 03/12/18 16:30 Urine pH 7.0 (5.0-8.0) 03/12/18 16:30 Ur Specific [place] 1.028 (1.010-1.035) 03/12/18 16:30 Urine Protein 1+ (NEGATIVE) H 03/12/18 16:30 Urine Glucose (UA) Negative (NEGATIVE) 03/12/18 16:30 Urine Ketones Negative (NEGATIVE) 03/12/18 16:30 Urine Blood Negative (NEGATIVE) 03/12/18 16:30 Urine Nitrite Negative (NEGATIVE) 03/12/18 16:30 Urine Bilirubin Negative (<2.0 mg/dL) 03/12/18 16:30 Urine Urobilinogen Negative mg/dL (0.2-1.0) 03/12/18 16:30 Ur Leukocyte Esterase Negative (NEGATIVE) 03/12/18 16:30 Urine WBC (Auto) 2 /hpf (3-5) 03/12/18 16:30 Urine RBC (Auto) 1 /hpf (0-3) 03/12/18 16:30 Ur Epithelial Cells Rare /HPF (FEW) 03/12/18 16:30 Urine Mucus Many 03/12/18 16:30 RPR Titer Nonreactive (NONREACTIVE) 03/13/18 05:40 HIV 1&2 Antibody Screen Negative 03/12/18 15:41 HIV P24 Antigen Negative 03/12/18 15:41 lab noted Assessment: 03/15/18 10:06 mild withdrawal sx change methadone regimen to 10 mg today and 5 mg tomorrow Plan: continue detox
[2018-03-15] MEDS: BACITRACIN 0.9 GM PACKET TP SCH ×2 (10:24→21:33)
[2018-03-15] MEDS: NICOTINE 21 MG/24 HOURS TOPICAL PATCH TD SCH (10:25)
[2018-03-15] MEDS: PANTOPRAZOLE 40 MG TABLET (FP) PO SCH (10:25)
[2018-03-15] MEDS: PRENATAL VITAMINS W/ FOLIC ACID TABLET (FP) PO SCH (10:25)
[2018-03-15] MEDS: METHADONE HCL 5 MG TABLET (FOR DETOX USE ONLY) PO SCH (10:37)
[2018-03-15] MEDS ORDERED: GABAPENTIN 400 MG CAPSULE (FP) PO ONE (14:47)
[2018-03-15] MEDS ORDERED: GABAPENTIN 100 MG CAPSULE (FP) PO ONE (14:47)
[2018-03-15] MEDS ORDERED: IBUPROFEN 400 MG TABLET (FP) PO ONE (14:51)
[2018-03-15] MEDS: chlordiazePOXIDE HCL 10 MG CAPSULE PO SCH ×2 (17:19→22:02)
[2018-03-15] MEDS: THIAMINE HCL 100 MG TABLET (FP) PO SCH (21:33)
[2018-03-16] MEDS: GABAPENTIN 300 MG CAPSULE (FP) PO SCH (05:36)
[2018-03-16] MEDS: chlordiazePOXIDE HCL 10 MG CAPSULE PO SCH (05:36)
[2018-03-16] MEDS: IBUPROFEN 400 MG TABLET (FP) PO SCH (05:36)
[2018-03-16] MEDS ORDERED: METHADONE HCL 5 MG TABLET (FOR DETOX USE ONLY) PO ONE (06:00)
[2018-03-16 06:09] VITALS: BP 111/59; PULSE 71; TEMP 96.8
--- NOTE | 2018-03-16 08:54 | DS ---
[facility] Detox Discharge Summary Admission Date: 03/12/18 Discharge Date: 03/16/18 - History Present History: Alcohol Dependence, Opioid Dependence Additional Comments: 37 years old male admitted on 03/12/18 for alcohol and opiate withdrawal stabilization completed detox regimen tolerated well aftercare Dr. Abernathy informed narcan rescue kit and naltrexone po can be medicinal plant picker at [facility] as long with teaching tools on usage Pertinent Past History: narcan rescue kit e prescribed to [facility] encourage the patient attend self help community support group - Physical Exam Results Vital Signs: Vital Signs Temperature 96.8 F L 03/16/18 06:09 Pulse Rate 71 03/16/18 06:09 Respiratory Rate 18 03/16/18 06:09 Blood Pressure 111/59 L 03/16/18 06:09 O2 Sat by Pulse Oximetry (%) Pertinent Admission Physical Exam Findings: alcohol and opiate withdrawal sx Vital Signs Temperature 96.8 F L 03/16/18 06:09 Pulse Rate 71 03/16/18 06:09 Respiratory Rate 18 03/16/18 06:09 Blood Pressure 111/59 L 03/16/18 06:09 O2 Sat by Pulse Oximetry (%) Laboratory Last Values WBC 8.1 K/mm3 (4.0-10.0) 03/13/18 05:40 RBC 4.74 M/mm3 (4.00-5.60) 03/13/18 05:40 Hgb 14.5 GM/dL (11.7-16.9) 03/13/18 05:40 Hct 42.7 % (35.4-49) 03/13/18 05:40 MCV 90.1 fl (80-96) 03/13/18 05:40 MCH 30.7 pg (25.7-33.7) 03/13/18 05:40 MCHC 34.0 g/dl (32.0-35.9) 03/13/18 05:40 RDW 15.1 % (11.9-15.9) 03/13/18 05:40 Plt Count 102 K/MM3 (134-434) L D 03/13/18 05:40 MPV 14.0 fl (7.5-11.1) H D 03/13/18 05:40 Sodium 143 mmol/L (136-145) 03/13/18 05:40 Potassium 4.3 mmol/L (3.5-5.1) 03/13/18 05:40 Chloride 109 mmol/L (98-107) H 03/13/18 05:40 Carbon Dioxide 30 mmol/L (21-32) 03/13/18 05:40 Anion Gap 5 MMOL/L (8-16) L 03/13/18 05:40 BUN 13 mg/dL (7-18) 03/13/18 05:40 Creatinine 0.9 mg/dL (0.55-1.3) 03/13/18 05:40 Creat Clearance w eGFR > 60 (>60) 03/13/18 05:40 Random Glucose 98 mg/dL (74-106) 03/13/18 05:40 Calcium 8.8 mg/dL (8.5-10.1) 03/13/18 05:40 Total Bilirubin 0.2 mg/dL (0.2-1) 03/13/18 05:40 AST 27 U/L (15-37) 03/13/18 05:40 ALT 50 U/L (13-61) 03/13/18 05:40 Alkaline Phosphatase 86 U/L (45-117) 03/13/18 05:40 Total Protein 7.1 g/dl (6.4-8.2) 03/13/18 05:40 Albumin 3.8 g/dl (3.4-5.0) 03/13/18 05:40 Urine Color Yellow 03/12/18 16:30 Urine Appearance Clear 03/12/18 16:30 Urine pH 7.0 (5.0-8.0) 03/12/18 16:30 Ur Specific [place] 1.028 (1.010-1.035) 03/12/18 16:30 Urine Protein 1+ (NEGATIVE) H 03/12/18 16:30 Urine Glucose (UA) Negative (NEGATIVE) 03/12/18 16:30 Urine Ketones Negative (NEGATIVE) 03/12/18 16:30 Urine Blood Negative (NEGATIVE) 03/12/18 16:30 Urine Nitrite Negative (NEGATIVE) 03/12/18 16:30 Urine Bilirubin Negative (<2.0 mg/dL) 03/12/18 16:30 Urine Urobilinogen Negative mg/dL (0.2-1.0) 03/12/18 16:30 Ur Leukocyte Esterase Negative (NEGATIVE) 03/12/18 16:30 Urine WBC (Auto) 2 /hpf (3-5) 03/12/18 16:30 Urine RBC (Auto) 1 /hpf (0-3) 03/12/18 16:30 Ur Epithelial Cells Rare /HPF (FEW) 03/12/18 16:30 Urine Mucus Many 03/12/18 16:30 RPR Titer Nonreactive (NONREACTIVE) 03/13/18 05:40 HIV 1&2 Antibody Screen Negative 03/12/18 15:41 HIV P24 Antigen Negative 03/12/18 15:41 lab noted - Treatment Hospital Course: Detox Protocol Followed, Detoxed Safely, Responded well, Discharged Condition Good, Rehab Referral Accepted Patient has Accepted a Rehab Referral to: Dr. Abernathy - Medication Discharge Medications: Ambulatory Orders Bupropion HCl [Wellbutrin Xl -] 450 mg PO DAILY #60 tab.sr.24h 05/10/16 Gabapentin [Neurontin -] 1,200 mg PO TID #360 cap 07/29/16 Omeprazole 20 mg PO DAILY #30 tab 07/29/16 Ibuprofen [Ibu] 800 mg PO TID 03/12/18 Naloxone HCl [Narcan] 4 mg NS ASDIR PRN #1 spray 03/16/18 Naltrexone HCl [Revia -] 50 mg PO DAILY #14 tablet 03/16/18 - Diagnosis (1) Alcohol dependence with uncomplicated withdrawal Status: Acute (2) Opioid dependence with withdrawal Status: Acute (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 Status: Acute (4) Substance induced mood disorder Status: Suspected (5) GERD (gastroesophageal reflux disease) Status: Chronic Qualifiers: Esophagitis presence: without esophagitis Qualified Code(s): K21.9 - Gastro -esophageal reflux disease without esophagitis (6) Hypertension Status: Chronic Qualifiers: Hypertension type: essential hypertension Qualified Code(s): I10 - Essential (primary) hypertension (7) Nicotine dependence Status: Acute Qualifiers: Nicotine product type: cigarettes Substance use status: in withdrawal Qualified Code(s): F17.213 - Nicotine dependence, cigarettes, with withdrawal - AMA Did Patient Leave Against Medical Advice: No
[2018-03-16] MEDS ORDERED: METHADONE HCL 10 MG TABLET (FOR DETOX USE ONLY) PO SCH (10:00)
[2018-03-17] MEDS ORDERED: METHADONE HCL 5 MG TABLET (FOR DETOX USE ONLY) PO SCH (06:00)
== END 2018-03-16 08:52 | disposition home or self-care (01) | DRG 773 ==
LOC: YASAS 11:36 → Y3N 14:45
PROVIDERS: ADMIT Neuromusculoskeletal Medicine & OMM; ATTEND Neuromusculoskeletal Medicine & OMM
PROC: HZ2ZZZZ Detoxification Services for Substance Abuse Treatment (ICD-10-PCS; principal; 2018-03-12)
DX: F11.23 Opioid dependence with withdrawal (principal); F10.230 Alcohol dependence with withdrawal, uncomplicated; F13.230 Sedative, hypnotic or anxiolytic dependence with withdrawal, uncomplicated; F12.20 Cannabis dependence, uncomplicated; F17.213 Nicotine dependence, cigarettes, with withdrawal; F19.24 Other psychoactive substance dependence with psychoactive substance-induced mood disorder; F32.9 Major depressive disorder, single episode, unspecified; I10 Essential (primary) hypertension; K21.9 Gastro-esophageal reflux disease without esophagitis; R82.90 Unspecified abnormal findings in urine; D69.6 Thrombocytopenia, unspecified
CPT/HCPCS: 36415; 80053; 81003; 81015; 85027; 86593; 87389; Q0162

== ENCOUNTER 2018-04-24 19:05 | Inpatient (IN) | payer OTHER ==
[2018-04-24 21:39] VITALS: BMI 34.9
--- NOTE | 2018-04-24 21:54 | HP ---
COWS - Scale Resting Pulse: 1= [place] 81-100 Sweatin=Flushed/Facial Moisture Restless Observation: 0= Sits Still Pupil Size: 0= Normal to Room Light Bone or Joint Aches: 4=Acute Joint/Muscle Pain Runny Nose/ Eye Tearin= Runny Nose/Eyes GI Upset > 30mins: 2= Nausea/Diarrhea Tremor Observation: 2= Slight Tremor Visible Yawning Observation: 0= None Anxiety or Irritability: 2=Irritable/Anxious Goose Flesh Skin: 0=Smooth Skin COWS Score: 15 CIWA Score Nausea/Vomitin Muscle Tremors: 4-Moderate,w/Arms Extend Anxiety: 3 Agitation: 0-Normal Activity Paroxysmal Sweats: 2 Orientation: 0-Oriented Tacttile Disturbances: 0-None Auditory Disturbances: 0-None Visual Disturbances: 0-None Headache: 4-Moderately Severe CIWA-Ar Total Score: 15 - Admission Criteria [facility] Guidelines: Admission for Medically Managed Detox: Requires at least one of the followin. CIWA greater than 12 2. Seizures within the past 24 hours 3. Delirium tremens within the past 24 hours 4. Hallucinations within the past 24 hours 5. Acute intervention needed for co occurring medical disorder 6. Acute intervention needed for co occurring psychiatric disorder 7. Severe withdrawal that cannot be handled at a lower level of care (continued vomiting, continued diarrhea, abnormal vital signs) requiring intravenous medication and/or fluids 8. Admission [facility] Chief Complaint: Alcohol and heroin withdrawal symptoms Allergies/Adverse Reactions: Allergies Allergy/AdvReac Type Severity Reaction Status Date / Time No Known Allergies Allergy Verified 04/24/18 22:23 History of Present Illness: 37 years old male with a long history of alcohol and heroin dependence is seeking admission to detox from alcohol, heroin and methadone. Patient reports that he buys methadone from the streets. He has been in previous detox and reports 6 years of sobriety. He has medical history of GERD, hypertension, anxiety and depression. He denies suicide attempt and suicidal ideation at this time. Exam Limitations: No Limitations - Ebola screening Have you traveled outside of the country in the last 21 days: No Have you had contact with anyone from an Ebola affected area: No Have you been sick,other than usual withdrawal symptoms: No - Review of Systems Constitutional: Chills, Loss of Appetite, Night Sweats, Changes in sleep EENT: reports: Sinus Pressure Respiratory: reports: No Symptoms reported GI: reports: Poor Appetite, Poor Fluid Intake, Abdominal cramping : reports: No Symptoms Reported Integumentary: reports: Dryness, Flushing Neuro: reports: Tremors Endocrine: reports: No Symptoms Reported Hematology: reports: No Symptoms Reported Psychiatric: reports: Mood/Affect Appropiate, Orientated x3 Other Systems: Reviewed and Negative Patient History - Patient Medical History Hx Anemia: No Hx Asthma: No Hx Chronic Obstructive Pulmonary Disease (COPD): No Hx Cancer: No Hx Cardiac Disorders: No Hx Congestive Heart Failure: No Hx Hypertension: No Hx Hypercholesterolemia: No Hx Pacemaker: No HX Cerebrovascular Accident: No Hx Seizures: No Hx Dementia: No Hx Diabetes: No Hx Gastrointestinal Disorders: Yes (GERD - Omeprazole) Hx Liver Disease: No Hx Genitourinary Disorders: No Hx Sexually Transmitted Disorders: No Hx Renal Disease (ESRD): No Hx Thyroid Disease: No Hx Human Immunodeficiency Virus (HIV): No (LAST 05/09 NEGATIVE) Hx Hepatitis C: No (LAST TESTED: 02/2016: NEGATIVE.) Hx Depression: Yes (Wellbutrin XL ) Hx Suicide Attempt: No Hx Bipolar Disorder: No Hx Schizophrenia: No - Patient Surgical History Past Surgical History: No Hx Neurologic Surgery: No Hx Cataract Extraction: No Hx Cardiac Surgery: No Hx Lung Surgery: No Hx Abdominal Surgery: No Hx Appendectomy: No Hx Cholecystectomy: No Hx Genitourinary Surgery: No Hx Orthopedic Surgery: No Anesthesia Reaction: Yes (Woke prematurely from Anesthesia used in Shoulder surgery: 2016.) - PPD History Previous Implant?: Yes Documented Results: Negative w/proof Implanted On Prior [facility] Admission?: Yes Date: 03/14/18 Results: 0 mm PPD to be Administered?: No - Reproductive History Patient is a Female of Child Bearing Age (11 -55 yrs old): No (MALE) - Smoking Cessation Smoking history: Current every day smoker Have you smoked in the past 12 months: Yes Aproximately how many cigarettes per day: 20 Cigars Per Day: 0 Hx Chewing Tobacco Use: No Initiated information on smoking cessation: Yes 'Breaking Loose' booklet given: 04/24/18 - Substance & Tx. History Hx Alcohol Use: Yes Hx Substance Use: Yes Substance Use Type: Alcohol, Heroin, Opiates Hx Substance Use Treatment: Yes ([facility]) - Substances Abused Alcohol Route: Oral Frequency: Daily Amount used: HENNESY- 1 PINT Age of first use: 11 Date of Last Use: 04/23/18 Heroin Route: Injection Frequency: Daily Amount used: 2 BUNDLES Age of first use: 26 Date of Last Use: 04/23/18 Non-Rx Methadone Route: Injection Frequency: Daily Amount used: 40MG Age of first use: 26 Date of Last Use: 04/23/18 Family Disease History - Family Disease History Family Disease History: Heart Disease: Mother (HTN, Osteoporosis.), Respiratory : Son (Asthma.), Other: Father (Osteoarthritis.), Mother Admission Physical Exam [facility] - Vital Signs Vital Signs: Vital Signs - 24 hr 04/24/18 21:35 Temperature 98.6 F Pulse Rate 84 Respiratory 18 Rate Blood Pressure 116/75 - Physical General Appearance: Yes: Moderate Distress, Tremorous, Anxious HEENTM: Yes: EOMI, Normal ENT Inspection, Normocephalic, Normal Voice, LUC, Nasal Congestion Respiratory: Yes: Lungs Clear, Normal Breath Sounds, No Respiratory Distress Neck: Yes: Supple Breast: Yes: Breast Exam Deferred Cardiology: Yes: Regular Rhythm, Regular Rate Abdominal: Yes: Normal Bowel Sounds Genitourinary: Yes: Within Normal Limits Back: Yes: Normal Inspection Musculoskeletal: Yes: Back pain Extremities: Yes: Tremors Neurological: Yes: Alert, Normal Mood/Affect Integumentary: Yes: Warm Lymphatic: Yes: Within Normal Limits - Diagnostic (1) Alcohol dependence with uncomplicated withdrawal Current Visit: No Status: Acute (2) Contact dermatitis Current Visit: No Status: Acute (3) Depression Current Visit: No Status: Acute (4) Nicotine dependence Current Visit: No Status: Acute Qualifiers: Nicotine product type: cigarettes Substance use status: in withdrawal Qualified Code(s): F17.213 - Nicotine dependence, cigarettes, with withdrawal (5) Opioid dependence with withdrawal Current Visit: No Status: Acute (6) Anxiety Current Visit: No Status: Chronic (7) GERD (gastroesophageal reflux disease) Current Visit: No Status: Chronic Qualifiers: Esophagitis presence: without esophagitis Qualified Code(s): K21.9 - Gastro -esophageal reflux disease without esophagitis (8) Hypertension Current Visit: No Status: Chronic Qualifiers: Hypertension type: essential hypertension Qualified Code(s): I10 - Essential (primary) hypertension Cleared for Admission [facility] - Detox or Rehab [facility] Level of Care: Medically Managed Detox Regimen/Protocol: Methadone/Librium [facility] Breath Alcohol Content Breath Alcohol Content: 0 Urine Drug Screen - Results Drug Screen Negative: No Urine Drug Screen Results: BZO-Benzodiazepines, MTD-Methadone, FEN-Fentanyl Inpatient Rehab Admission - Rehab Decision to Admit Inpatient rehab admission?: No
[2018-04-24] MEDS ORDERED: MELATONIN 5 MG TABLETS PO PRN (22:00)
[2018-04-24] MEDS ORDERED: MAG HYDROX/AL HYDROX/SIMETH 30 ML UNIT-DOSE CUP PO PRN (22:07)
[2018-04-24] MEDS ORDERED: chlordiazePOXIDE HCL 25 MG CAPSULE PO PRN (22:07)
[2018-04-24] MEDS ORDERED: P-EPHED 60MG/TRIPROLIDI 2.5MG TABLET PO PRN (22:07)
[2018-04-24] MEDS ORDERED: MAGNESIUM HYDROX 2400MG/30ML ORAL SUSPENSION 30 ML CUP PO PRN (22:07)
[2018-04-24] MEDS ORDERED: METHADONE HCL 10 MG TABLET (FOR DETOX USE ONLY) PO ONE ×2 (22:07→23:00)
[2018-04-24] MEDS ORDERED: ACETAMINOPHEN 325 MG TABLET (FP) PO PRN (22:07)
[2018-04-24] MEDS ORDERED: LOPERAMIDE HCL 2 MG CAPSULE PO PRN (22:07)
[2018-04-24] MEDS ORDERED: guaiFENesin/D-METHORPHAN HB 10 ML UNIT-DOSE CUPS PO PRN (22:07)
[2018-04-24] MEDS ORDERED: MAGNESIUM CITRATE 300 ML BOTTLE PO PRN (22:07)
[2018-04-24] MEDS ORDERED: MENTHOL/PHENOL 1 EACH UD MM PRN (22:07)
[2018-04-24] MEDS: chlordiazePOXIDE HCL 25 MG CAPSULE PO SCH (23:53)
[2018-04-25] MEDS: chlordiazePOXIDE HCL 25 MG CAPSULE PO SCH ×4 (05:31→22:18)
--- NOTE | 2018-04-25 09:46 | CONSULT ---
[facility] Psychiatric Consult - Data Date of interview: 04/25/18 Admission source: Self-referred Identifying data: Patient is a 37 y/o male single,unemployed, homeless, father of one child, on public assistance Substance Abuse History: he has a history of substance use on and off for several years and admitted this time to the unit for opioid use and methadone. IVDA heroin user. His most recent Detox admission to [facility], [place] was in February. Records indicate that his urine toxicology was + for benzo, fentanyl and methadone. Refer to addiction counselor note for more detailed substance use history Medical History: History of torn ligament in his shoulder and hip. Chronic shoulder pain treated with a high dose of gabapentin. Records indicate a history of HTn and GERD Psychiatric History: Patient is a depression sufferer, he has no prior psychiatric hospitalization, he is treated by his PCP with Wellbutrin 450 mg XL daily, he reports treatment effectiveness, good tolerability and no adverse effects. He has been on this regime for over a decade. He has been compliant and adherent with his medications. He denies feeling sad, depressed or anxious , admitted trouble to start sleep , has a good appetite. he denies history of seizure disorder or family history of seizure Physical/Sexual Abuse/Trauma History: Denies history of abuse. Past history of trouble with the law and incarceration Mental Status Exam - Mental Status Exam Alert and Oriented to: Time, Place, Person Cognitive Function: Grossly Intact Patient Appearance: Well Groomed Mood: Euthymic Affect: Appropriate Patient Behavior: Appropriate, Cooperative Speech Pattern: Clear Voice Loudness: Normal Thought Process: Intact Thought Disorder: Not Present Hallucinations: Denies Suicidal Ideation: Denies Homicidal Ideation: Denies Insight/Judgement: Poor Sleep: Difficulty falling asleep Appetite: Good Muscle strength/Tone: Normal Gait/Station: Normal Psychiatric Findings - Problem List (Louisa 1, 2,3) (1) Alcohol dependence with uncomplicated withdrawal Current Visit: No Status: Acute (2) Insomnia Current Visit: No Status: Acute (3) Opioid dependence with withdrawal Current Visit: No Status: Acute (4) Sedative hypnotic or anxiolytic dependence Current Visit: No Status: Acute (5) Sedative/hypnotic withdrawal without complication Current Visit: No Status: Acute (6) GERD (gastroesophageal reflux disease) Current Visit: No Status: Chronic Qualifiers: Esophagitis presence: without esophagitis Qualified Code(s): K21.9 - Gastro -esophageal reflux disease without esophagitis (7) Hypertension Current Visit: No Status: Chronic Qualifiers: Hypertension type: essential hypertension Qualified Code(s): I10 - Essential (primary) hypertension (8) MDD (major depressive disorder) Current Visit: No Status: Chronic - Initial Treatment Plan Initial Treatment Plan: Psychoeducation. Continue detox treatment. Well butrin XR 450 mg po daily. Monitor rssponse
[2018-04-25] MEDS ORDERED: METHADONE HCL 10 MG TABLET (FOR DETOX USE ONLY) PO SCH (10:00)
[2018-04-25] MEDS: PANTOPRAZOLE 20 MG TABLET (FP) PO SCH (10:10)
[2018-04-25] MEDS: NICOTINE 21 MG/24 HOURS TOPICAL PATCH TD SCH (10:11)
[2018-04-25] MEDS: PRENATAL VITAMINS W/ FOLIC ACID TABLET (FP) PO SCH (10:11)
[2018-04-25] MEDS: NICOTINE POLACRILEX 2 MG GUM BC PRN (10:13)
--- NOTE | 2018-04-25 10:44 | PN ---
[facility] CIWA - CIWA Score Nausea/Vomitin-No Nausea/No Vomiting Muscle Tremors: 2 Anxiety: 2 Agitation: 2 Paroxysmal Sweats: 1-Minimal Palms Moist Orientation: 1-Uncertain about Date Tacttile Disturbances: 0-None Auditory Disturbances: 0-None Visual Disturbances: 0-None Headache: 1-Very Mild CIWA-Ar Total Score: 9 S COWS - Scale Resting Pulse: 0= [place] 80 or Below Sweatin= Chills/Flushing Restless Observation: 0= Sits Still Pupil Size: 0= Normal to Room Light Bone or Joint Aches: 1= Mild Discomfort Runny Nose/ Eye Tearin= Nasal Congestion GI Upset > 30mins: 1= Stomach Cramp Tremor Observation of Outstretched Hands: 1= Tremor [place], Not Seen Yawning Observation: 2= >3x During Session Anxiety or Irritability: 1=Feels Anxious/Irritable Goose Flesh Skin: 0=Smooth Skin COWS Score: 8 [facility] Progress Note (SOAP) Subjective: received bottles of medication: gabapentin 600 mg II tabs po tid sent to pharmacy for verification hydrocortison 2.5% to hand od sent to pharmacy for verification body aches, tremor, sweating, muscle cramping while neurontin is in the process to be verified by the pharmacist three doses of neurontin 1200mg tid were ordered and hydrocortison cream 2.5% to hands od Objective: 04/25/18 15:00 Vital Signs Temperature 97.4 F L 04/25/18 14:34 Pulse Rate 72 04/25/18 14:34 Respiratory Rate 20 04/25/18 14:34 Blood Pressure 118/66 04/25/18 14:34 O2 Sat by Pulse Oximetry (%) Laboratory 04/25/18 04/25/18 04/25/18 07:35 07:35 07:35 WBC 6.8 K/mm3 K/mm3 (4.0-10.0) RBC 4.65 M/mm3 M/mm3 (4.00-5.60) Hgb 14.9 GM/dL GM/dL (11.7-16.9) Hct 42.8 % % (35.4-49) MCV 91.9 fl fl (80-96) MCH 31.9 pg pg (25.7-33.7) MCHC 34.8 g/dl g/dl (32.0-35.9) RDW 14.8 % % (11.9-15.9) Plt Count 85 K/MM3 L K/MM3 (134-434) MPV 13.9 fl H fl (7.5-11.1) Sodium 139 mmol/L mmol/L (136-145) Potassium 4.0 mmol/L mmol/L (3.5-5.1) Chloride 104 mmol/L mmol/L (98-107) Carbon Dioxide 29 mmol/L mmol/L (21-32) Anion Gap 6 MMOL/L L MMOL/L (8-16) BUN 14 mg/dL mg/dL (7-18) Creatinine 0.9 mg/dL mg/dL (0.55-1.3) Creat Clearance w eGFR > 60 (>60) Random Glucose 118 mg/dL H mg/dL (74-106) Calcium 8.2 mg/dL L mg/dL (8.5-10.1) Total Bilirubin 0.3 mg/dL mg/dL (0.2-1) AST 29 U/L U/L (15-37) ALT 46 U/L U/L (13-61) Alkaline Phosphatase 83 U/L U/L (45-117) Total Protein 6.5 g/dl g/dl (6.4-8.2) Albumin 3.4 g/dl g/dl (3.4-5.0) RPR Titer Nonreactive (NONREACTIVE) Laboratory Last Values WBC 6.8 K/mm3 (4.0-10.0) 04/25/18 07:35 RBC 4.65 M/mm3 (4.00-5.60) 04/25/18 07:35 Hgb 14.9 GM/dL (11.7-16.9) 04/25/18 07:35 Hct 42.8 % (35.4-49) 04/25/18 07:35 MCV 91.9 fl (80-96) 04/25/18 07:35 MCH 31.9 pg (25.7-33.7) 04/25/18 07:35 MCHC 34.8 g/dl (32.0-35.9) 04/25/18 07:35 RDW 14.8 % (11.9-15.9) 04/25/18 07:35 Plt Count 85 K/MM3 (134-434) L 04/25/18 07:35 MPV 13.9 fl (7.5-11.1) H 04/25/18 07:35 Sodium 139 mmol/L (136-145) 04/25/18 07:35 Potassium 4.0 mmol/L (3.5-5.1) 04/25/18 07:35 Chloride 104 mmol/L (98-107) 04/25/18 07:35 Carbon Dioxide 29 mmol/L (21-32) 04/25/18 07:35 Anion Gap 6 MMOL/L (8-16) L 04/25/18 07:35 BUN 14 mg/dL (7-18) 04/25/18 07:35 Creatinine 0.9 mg/dL (0.55-1.3) 04/25/18 07:35 Creat Clearance w eGFR > 60 (>60) 04/25/18 07:35 Random Glucose 118 mg/dL (74-106) H 04/25/18 07:35 Calcium 8.2 mg/dL (8.5-10.1) L 04/25/18 07:35 Total Bilirubin 0.3 mg/dL (0.2-1) 04/25/18 07:35 AST 29 U/L (15-37) 04/25/18 07:35 ALT 46 U/L (13-61) 04/25/18 07:35 Alkaline Phosphatase 83 U/L (45-117) 04/25/18 07:35 Total Protein 6.5 g/dl (6.4-8.2) 04/25/18 07:35 Albumin 3.4 g/dl (3.4-5.0) 04/25/18 07:35 RPR Titer Nonreactive (NONREACTIVE) 04/25/18 07:35 lab noted Assessment: 04/25/18 15:02 withdrawal sx Plan: continue detox
[2018-04-25 10:50] LABS: HEMATOCRIT 42.8 % (35.4-49); HEMOGLOBIN 14.9 GM/dL (11.7-16.9); MCH 31.9 pg (25.7-33.7); MCHC 34.8 g/dl (32.0-35.9); MEAN CELL VOLUME 91.9 fl (80-96); MEAN PLT VOLUME 13.9 fl (7.5-11.1); PLATELET COUNT 85 K/MM3 (134-434); RBC 4.65 M/mm3 (4.00-5.60); RDW 14.8 % (11.9-15.9); WHITE BLOOD COUNT 6.8 K/mm3 (4.0-10.0)
[2018-04-25 11:09] LABS: ALBUMIN 3.4 g/dl (3.4-5.0); ALK PHOS 83 U/L (45-117); ANION GAP 6 MMOL/L (8-16); BILIRUBIN,TOTAL 0.3 mg/dL (0.2-1); BLOOD UREA NITROGEN 14 mg/dL (7-18); CALCIUM 8.2 mg/dL (8.5-10.1); CHLORIDE 104 mmol/L (98-107); CO2 29 mmol/L (21-32); CREATININE 0.9 mg/dL (0.55-1.3); GLUCOSE,RANDOM 118 mg/dL (74-106); SGOT/AST 29 U/L (15-37); SGPT/ALT 46 U/L (13-61); SODIUM 139 mmol/L (136-145); TOT PROT 6.5 g/dl (6.4-8.2)
[2018-04-25] MEDS ORDERED: BACLOFEN 10 MG TABLET (FP) PO ONE (11:12)
[2018-04-25] MEDS: IBUPROFEN 400 MG TABLET (FP) PO PRN (11:14)
[2018-04-25] MEDS ORDERED: GABAPENTIN 300 MG CAPSULE (FP) PO SCH (14:00)
[2018-04-25] MEDS ORDERED: GABAPENTIN PO SCH (14:00)
[2018-04-25] MEDS: GABAPENTIN 1200 MG PO SCH ×2 (17:57→22:21)
[2018-04-25] MEDS: GABAPENTIN PO SCH ×2 (18:00→22:19)
[2018-04-25] MEDS: THIAMINE HCL 100 MG TABLET (FP) PO SCH (22:18)
[2018-04-25] MEDS: CALCIUM 250MG/VIT-D 125 UNITS 1 COMBO TABLET PO SCH (22:43)
[2018-04-26] MEDS: chlordiazePOXIDE HCL 25 MG CAPSULE PO SCH ×3 (05:08→17:02)
[2018-04-26] MEDS ORDERED: GABAPENTIN 300 MG CAPSULE (FP) PO ONE (05:18)
[2018-04-26] MEDS ORDERED: GABAPENTIN 400 MG CAPSULE (FP) PO ONE (05:30)
[2018-04-26] MEDS: IBUPROFEN 400 MG TABLET (FP) PO PRN (05:33)
[2018-04-26] MEDS: GABAPENTIN 1200 MG PO SCH (06:02)
--- NOTE | 2018-04-26 09:59 | PN ---
S CIWA - CIWA Score Nausea/Vomitin-No Nausea/No Vomiting Muscle Tremors: 2 Anxiety: 1-Mildly Anxious Agitation: 1-Slight > Activity Paroxysmal Sweats: 1-Minimal Palms Moist Orientation: 1-Uncertain about Date Tacttile Disturbances: 0-None Auditory Disturbances: 0-None Visual Disturbances: 0-None Headache: 0-None Present CIWA-Ar Total Score: 6 [facility] COWS - Scale Resting Pulse: 0= [place] 80 or Below Sweatin= Chills/Flushing Restless Observation: 0= Sits Still Pupil Size: 0= Normal to Room Light Bone or Joint Aches: 1= Mild Discomfort Runny Nose/ Eye Tearin= Nasal Congestion GI Upset > 30mins: 1= Stomach Cramp Tremor Observation of Outstretched Hands: 1= Tremor [place], Not Seen Yawning Observation: 1= 1-2x During Session Anxiety or Irritability: 1=Feels Anxious/Irritable Goose Flesh Skin: 0=Smooth Skin COWS Score: 7 S Progress Note (SOAP) Subjective: chronic shoulder and arms pain from history of trauma tremor sweating patient stated that he was doing well with neurontin bottle of neurontin verified the dosage and frequency Objective: 04/26/18 09:55 Vital Signs Temperature 98.0 F 04/26/18 09:22 Pulse Rate 86 04/26/18 09:22 Respiratory Rate 18 04/26/18 09:22 Blood Pressure 128/80 04/26/18 09:22 O2 Sat by Pulse Oximetry (%) Laboratory Last Values WBC 6.8 K/mm3 (4.0-10.0) 04/25/18 07:35 RBC 4.65 M/mm3 (4.00-5.60) 04/25/18 07:35 Hgb 14.9 GM/dL (11.7-16.9) 04/25/18 07:35 Hct 42.8 % (35.4-49) 04/25/18 07:35 MCV 91.9 fl (80-96) 04/25/18 07:35 MCH 31.9 pg (25.7-33.7) 04/25/18 07:35 MCHC 34.8 g/dl (32.0-35.9) 04/25/18 07:35 RDW 14.8 % (11.9-15.9) 04/25/18 07:35 Plt Count 85 K/MM3 (134-434) L 04/25/18 07:35 MPV 13.9 fl (7.5-11.1) H 04/25/18 07:35 Sodium 139 mmol/L (136-145) 04/25/18 07:35 Potassium 4.0 mmol/L (3.5-5.1) 04/25/18 07:35 Chloride 104 mmol/L (98-107) 04/25/18 07:35 Carbon Dioxide 29 mmol/L (21-32) 04/25/18 07:35 Anion Gap 6 MMOL/L (8-16) L 04/25/18 07:35 BUN 14 mg/dL (7-18) 04/25/18 07:35 Creatinine 0.9 mg/dL (0.55-1.3) 04/25/18 07:35 Creat Clearance w eGFR > 60 (>60) 04/25/18 07:35 Random Glucose 118 mg/dL (74-106) H 04/25/18 07:35 Calcium 8.2 mg/dL (8.5-10.1) L 04/25/18 07:35 Total Bilirubin 0.3 mg/dL (0.2-1) 04/25/18 07:35 AST 29 U/L (15-37) 04/25/18 07:35 ALT 46 U/L (13-61) 04/25/18 07:35 Alkaline Phosphatase 83 U/L (45-117) 04/25/18 07:35 Total Protein 6.5 g/dl (6.4-8.2) 04/25/18 07:35 Albumin 3.4 g/dl (3.4-5.0) 04/25/18 07:35 RPR Titer Nonreactive (NONREACTIVE) 04/25/18 07:35 lab noted low platele discontinue motrin Assessment: 04/26/18 09:59 alcohol and opiate withdrawal sx chronic body aches treated with neurontin 1200 mg tid Plan: continue detox
[2018-04-26] MEDS ORDERED: GABAPENTIN PO SCH (10:00)
[2018-04-26] MEDS: CALCIUM 250MG/VIT-D 125 UNITS 1 COMBO TABLET PO SCH ×2 (10:04→22:10)
[2018-04-26] MEDS: HYDROCORTISONE 2.5% TOPICAL CREAM 30 GM TUBE TP SCH (10:04)
[2018-04-26] MEDS: PRENATAL VITAMINS W/ FOLIC ACID TABLET (FP) PO SCH (10:05)
[2018-04-26] MEDS: NICOTINE 21 MG/24 HOURS TOPICAL PATCH TD SCH (10:05)
[2018-04-26] MEDS: PANTOPRAZOLE 20 MG TABLET (FP) PO SCH (10:05)
[2018-04-26] MEDS: METHADONE HCL 5 MG TABLET (FOR DETOX USE ONLY) PO SCH (10:06)
[2018-04-26] MEDS: GABAPENTIN 400 MG CAPSULE (FP) PO SCH ×2 (13:08→22:10)
[2018-04-26] MEDS: BACLOFEN 10 MG TABLET (FP) PO PRN ×2 (16:09→22:10)
[2018-04-26] MEDS: BENZOCAINE 20 % GEL TUBE MM PRN (19:06)
[2018-04-26] MEDS: THIAMINE HCL 100 MG TABLET (FP) PO SCH (22:09)
[2018-04-26] MEDS: chlordiazePOXIDE 5 MG CAPSULE PO SCH (22:09)
[2018-04-27] MEDS: chlordiazePOXIDE 5 MG CAPSULE PO SCH ×3 (05:26→17:27)
[2018-04-27] MEDS: BACLOFEN 10 MG TABLET (FP) PO PRN ×3 (05:26→22:12)
[2018-04-27] MEDS: GABAPENTIN 400 MG CAPSULE (FP) PO SCH ×3 (05:26→22:11)
[2018-04-27] MEDS: BENZOCAINE 20 % GEL TUBE MM PRN ×2 (05:29→17:28)
[2018-04-27] MEDS: HYDROCORTISONE 2.5% TOPICAL CREAM 30 GM TUBE TP SCH ×2 (09:08→10:08)
--- NOTE | 2018-04-27 09:58 | PN ---
S CIWA - CIWA Score Nausea/Vomitin-No Nausea/No Vomiting Muscle Tremors: 2 Anxiety: 1-Mildly Anxious Agitation: 1-Slight > Activity Paroxysmal Sweats: 1-Minimal Palms Moist Orientation: 0-Oriented Tacttile Disturbances: 0-None Auditory Disturbances: 0-None Visual Disturbances: 0-None Headache: 1-Very Mild CIWA-Ar Total Score: 6 [facility] COWS - Scale Resting Pulse: 0= [place] 80 or Below Sweatin= Chills/Flushing Restless Observation: 0= Sits Still Pupil Size: 0= Normal to Room Light Bone or Joint Aches: 1= Mild Discomfort Runny Nose/ Eye Tearin= None GI Upset > 30mins: 0= None Tremor Observation of Outstretched Hands: 1= Tremor [place], Not Seen Yawning Observation: 1= 1-2x During Session Anxiety or Irritability: 1=Feels Anxious/Irritable Goose Flesh Skin: 0=Smooth Skin COWS Score: 5 S Progress Note (SOAP) Subjective: tolerate food and fluid well, social with peers in day room, patient is willing to return to primary care provider for medical mental and addiction issues Objective: 04/27/18 09:57 Vital Signs Temperature 97.7 F 04/27/18 09:19 Pulse Rate 83 04/27/18 09:19 Respiratory Rate 18 04/27/18 09:19 Blood Pressure 120/76 04/27/18 09:19 O2 Sat by Pulse Oximetry (%) Laboratory Last Values WBC 6.8 K/mm3 (4.0-10.0) 04/25/18 07:35 RBC 4.65 M/mm3 (4.00-5.60) 04/25/18 07:35 Hgb 14.9 GM/dL (11.7-16.9) 04/25/18 07:35 Hct 42.8 % (35.4-49) 04/25/18 07:35 MCV 91.9 fl (80-96) 04/25/18 07:35 MCH 31.9 pg (25.7-33.7) 04/25/18 07:35 MCHC 34.8 g/dl (32.0-35.9) 04/25/18 07:35 RDW 14.8 % (11.9-15.9) 04/25/18 07:35 Plt Count 85 K/MM3 (134-434) L 04/25/18 07:35 MPV 13.9 fl (7.5-11.1) H 04/25/18 07:35 Sodium 139 mmol/L (136-145) 04/25/18 07:35 Potassium 4.0 mmol/L (3.5-5.1) 04/25/18 07:35 Chloride 104 mmol/L (98-107) 04/25/18 07:35 Carbon Dioxide 29 mmol/L (21-32) 04/25/18 07:35 Anion Gap 6 MMOL/L (8-16) L 04/25/18 07:35 BUN 14 mg/dL (7-18) 04/25/18 07:35 Creatinine 0.9 mg/dL (0.55-1.3) 04/25/18 07:35 Creat Clearance w eGFR > 60 (>60) 04/25/18 07:35 Random Glucose 118 mg/dL (74-106) H 04/25/18 07:35 Calcium 8.2 mg/dL (8.5-10.1) L 04/25/18 07:35 Total Bilirubin 0.3 mg/dL (0.2-1) 04/25/18 07:35 AST 29 U/L (15-37) 04/25/18 07:35 ALT 46 U/L (13-61) 04/25/18 07:35 Alkaline Phosphatase 83 U/L (45-117) 04/25/18 07:35 Total Protein 6.5 g/dl (6.4-8.2) 04/25/18 07:35 Albumin 3.4 g/dl (3.4-5.0) 04/25/18 07:35 RPR Titer Nonreactive (NONREACTIVE) 04/25/18 07:35 lab noted informed no aspirin contain medication follow up with primary care provider for platelets level bring in lab result to follow up appointment Assessment: 04/27/18 09:58 alcohol and opiate withdrawal sx Plan: continue detox
[2018-04-27] MEDS: METHADONE HCL 5 MG TABLET (FOR DETOX USE ONLY) PO SCH (10:08)
[2018-04-27] MEDS: PANTOPRAZOLE 20 MG TABLET (FP) PO SCH (10:08)
[2018-04-27] MEDS: NICOTINE 21 MG/24 HOURS TOPICAL PATCH TD SCH (10:09)
[2018-04-27] MEDS: CALCIUM 250MG/VIT-D 125 UNITS 1 COMBO TABLET PO SCH ×2 (10:09→22:11)
[2018-04-27] MEDS: PRENATAL VITAMINS W/ FOLIC ACID TABLET (FP) PO SCH (10:09)
[2018-04-27] MEDS: NICOTINE POLACRILEX 2 MG GUM BC PRN (10:12)
[2018-04-27] MEDS ORDERED: IBUPROFEN 400 MG TABLET (FP) PO ONE (17:35)
--- NOTE | 2018-04-27 17:37 | PN ---
[facility] Progress Note Note: Vital Signs Temperature 97.4 F L 04/27/18 17:19 Pulse Rate 82 04/27/18 17:19 Respiratory Rate 18 04/27/18 17:19 Blood Pressure 125/76 04/27/18 17:19 O2 Sat by Pulse Oximetry (%) Laboratory Last Values WBC 6.8 K/mm3 (4.0-10.0) 04/25/18 07:35 RBC 4.65 M/mm3 (4.00-5.60) 04/25/18 07:35 Hgb 14.9 GM/dL (11.7-16.9) 04/25/18 07:35 Hct 42.8 % (35.4-49) 04/25/18 07:35 MCV 91.9 fl (80-96) 04/25/18 07:35 MCH 31.9 pg (25.7-33.7) 04/25/18 07:35 MCHC 34.8 g/dl (32.0-35.9) 04/25/18 07:35 RDW 14.8 % (11.9-15.9) 04/25/18 07:35 Plt Count 85 K/MM3 (134-434) L 04/25/18 07:35 MPV 13.9 fl (7.5-11.1) H 04/25/18 07:35 Sodium 139 mmol/L (136-145) 04/25/18 07:35 Potassium 4.0 mmol/L (3.5-5.1) 04/25/18 07:35 Chloride 104 mmol/L (98-107) 04/25/18 07:35 Carbon Dioxide 29 mmol/L (21-32) 04/25/18 07:35 Anion Gap 6 MMOL/L (8-16) L 04/25/18 07:35 BUN 14 mg/dL (7-18) 04/25/18 07:35 Creatinine 0.9 mg/dL (0.55-1.3) 04/25/18 07:35 Creat Clearance w eGFR > 60 (>60) 04/25/18 07:35 Random Glucose 118 mg/dL (74-106) H 04/25/18 07:35 Calcium 8.2 mg/dL (8.5-10.1) L 04/25/18 07:35 Total Bilirubin 0.3 mg/dL (0.2-1) 04/25/18 07:35 AST 29 U/L (15-37) 04/25/18 07:35 ALT 46 U/L (13-61) 04/25/18 07:35 Alkaline Phosphatase 83 U/L (45-117) 04/25/18 07:35 Total Protein 6.5 g/dl (6.4-8.2) 04/25/18 07:35 Albumin 3.4 g/dl (3.4-5.0) 04/25/18 07:35 RPR Titer Nonreactive (NONREACTIVE) 04/25/18 07:35 Patient requested ibuprofen for right shoulder pain, reports this is what works for this pain he had in the past ibuprofen 400mg ordered increase fluids and mobility continue to monitor
[2018-04-27] MEDS: THIAMINE HCL 100 MG TABLET (FP) PO SCH (22:11)
[2018-04-27] MEDS: chlordiazePOXIDE HCL 10 MG CAPSULE PO SCH (22:11)
[2018-04-28] MEDS: GABAPENTIN 400 MG CAPSULE (FP) PO SCH ×3 (05:48→21:38)
[2018-04-28] MEDS: chlordiazePOXIDE HCL 10 MG CAPSULE PO SCH ×3 (05:48→18:07)
[2018-04-28] MEDS: BACLOFEN 10 MG TABLET (FP) PO PRN ×3 (05:49→21:39)
[2018-04-28] MEDS ORDERED: METHADONE HCL 10 MG TABLET (FOR DETOX USE ONLY) PO SCH (10:00)
[2018-04-28] MEDS: CALCIUM 250MG/VIT-D 125 UNITS 1 COMBO TABLET PO SCH ×2 (10:04→21:38)
[2018-04-28] MEDS: NICOTINE 21 MG/24 HOURS TOPICAL PATCH TD SCH (10:04)
[2018-04-28] MEDS: HYDROCORTISONE 2.5% TOPICAL CREAM 30 GM TUBE TP SCH (10:04)
[2018-04-28] MEDS: PANTOPRAZOLE 20 MG TABLET (FP) PO SCH (10:05)
[2018-04-28] MEDS: PRENATAL VITAMINS W/ FOLIC ACID TABLET (FP) PO SCH (10:05)
[2018-04-28] MEDS: NICOTINE POLACRILEX 2 MG GUM BC PRN (10:05)
--- NOTE | 2018-04-28 13:35 | PN ---
[facility] Progress Note (SOAP) Subjective: s: pt states doing well in detox, does not want to be in a methadone. O: Vital Signs - 24 hr 04/27/18 04/27/18 04/27/18 13:54 17:19 22:03 Temperature 97.3 F L 97.4 F L 98.4 F Pulse Rate 82 82 91 H Respiratory 18 18 18 Rate Blood Pressure 107/77 125/76 135/86 04/28/18 04/28/18 04/28/18 03:30 06:00 08:48 Temperature 98.9 F 98.9 F Pulse Rate 75 75 Respiratory 18 18 18 Rate Blood Pressure 111/76 111/76 04/28/18 09:26 Temperature 97.7 F Pulse Rate 93 H Respiratory 20 Rate Blood Pressure 122/78 Laboratory Tests 04/25/18 04/25/18 04/25/18 07:35 07:35 07:35 WBC 6.8 RBC 4.65 Hgb 14.9 Hct 42.8 MCV 91.9 MCH 31.9 MCHC 34.8 RDW 14.8 Plt Count 85 L MPV 13.9 H Sodium 139 Potassium 4.0 Chloride 104 Carbon Dioxide 29 Anion Gap 6 L BUN 14 Creatinine 0.9 Creat Clearance w eGFR > 60 Random Glucose 118 H Calcium 8.2 L Total Bilirubin 0.3 AST 29 ALT 46 Alkaline Phosphatase 83 Total Protein 6.5 Albumin 3.4 RPR Titer Nonreactive a/p: continue heroin detox protocol- pt doing well on detox protocol
[2018-04-28] MEDS: THIAMINE HCL 100 MG TABLET (FP) PO SCH (21:38)
[2018-04-29] MEDS: GABAPENTIN 400 MG CAPSULE (FP) PO SCH (05:38)
[2018-04-29] MEDS ORDERED: METHADONE HCL 5 MG TABLET (FOR DETOX USE ONLY) PO SCH (06:00)
[2018-04-29 06:04] VITALS: BP 99/72; PULSE 77; TEMP 97.3
--- NOTE | 2018-04-29 08:36 | DS ---
[facility] Detox Discharge Summary Admission Date: 04/24/18 Discharge Date: 04/29/18 - History Present History: Alcohol Dependence, Opioid Dependence Additional Comments: 37 years old male admitted on 04/24/18 for alcohol and opiate withdrawal stabilization completed detox regimen tolerated well aftercare [facility] services Pertinent Past History: keep medication list in wallet bring-in medication list to aftercare appointment bring-in bottles of medications to follow up appointment update medication list when change medication pharmacy 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 narcan kit from pharmacy important of medication adherence - Physical Exam Results Vital Signs: Vital Signs Temperature 97.3 F L 04/29/18 06:03 Pulse Rate 77 04/29/18 06:03 Respiratory Rate 18 04/29/18 06:30 Blood Pressure 99/72 04/29/18 06:03 O2 Sat by Pulse Oximetry (%) Pertinent Admission Physical Exam Findings: alcohol and opiate withdrawal sx Laboratory Last Values WBC 6.8 K/mm3 (4.0-10.0) 04/25/18 07:35 RBC 4.65 M/mm3 (4.00-5.60) 04/25/18 07:35 Hgb 14.9 GM/dL (11.7-16.9) 04/25/18 07:35 Hct 42.8 % (35.4-49) 04/25/18 07:35 MCV 91.9 fl (80-96) 04/25/18 07:35 MCH 31.9 pg (25.7-33.7) 04/25/18 07:35 MCHC 34.8 g/dl (32.0-35.9) 04/25/18 07:35 RDW 14.8 % (11.9-15.9) 04/25/18 07:35 Plt Count 85 K/MM3 (134-434) L 04/25/18 07:35 MPV 13.9 fl (7.5-11.1) H 04/25/18 07:35 Sodium 139 mmol/L (136-145) 04/25/18 07:35 Potassium 4.0 mmol/L (3.5-5.1) 04/25/18 07:35 Chloride 104 mmol/L (98-107) 04/25/18 07:35 Carbon Dioxide 29 mmol/L (21-32) 04/25/18 07:35 Anion Gap 6 MMOL/L (8-16) L 04/25/18 07:35 BUN 14 mg/dL (7-18) 04/25/18 07:35 Creatinine 0.9 mg/dL (0.55-1.3) 04/25/18 07:35 Creat Clearance w eGFR > 60 (>60) 04/25/18 07:35 Random Glucose 118 mg/dL (74-106) H 04/25/18 07:35 Calcium 8.2 mg/dL (8.5-10.1) L 04/25/18 07:35 Total Bilirubin 0.3 mg/dL (0.2-1) 04/25/18 07:35 AST 29 U/L (15-37) 04/25/18 07:35 ALT 46 U/L (13-61) 04/25/18 07:35 Alkaline Phosphatase 83 U/L (45-117) 04/25/18 07:35 Total Protein 6.5 g/dl (6.4-8.2) 04/25/18 07:35 Albumin 3.4 g/dl (3.4-5.0) 04/25/18 07:35 RPR Titer Nonreactive (NONREACTIVE) 04/25/18 07:35 lab noted patient requests nicotine patch prescription encourage the patient seeking over the counter nicotine placement patch and follow the step geri off as per package indicated narcan kit and naltraxone can be pick from the pharmacy - Treatment Hospital Course: Detox Protocol Followed, Detoxed Safely, Responded well, Discharged Condition Good, Rehab Referral Accepted Patient has Accepted a Rehab Referral to: [facility] services - Medication Discharge Medications: Ambulatory Orders Bupropion HCl [Wellbutrin Xl -] 450 mg PO DAILY #60 tab.sr.24h 05/10/16 Gabapentin [Neurontin -] 1,200 mg PO TID #360 cap 07/29/16 Omeprazole 20 mg PO DAILY #30 tab 07/29/16 Naloxone HCl [Narcan] 4 mg NS ASDIR PRN #1 spray 04/29/18 Naltrexone HCl [Revia -] 50 mg PO DAILY #14 tablet 04/29/18 - Diagnosis (1) Alcohol dependence with uncomplicated withdrawal Status: Acute (2) Opioid dependence with withdrawal Status: Acute (3) GERD (gastroesophageal reflux disease) Status: Chronic Qualifiers: Esophagitis presence: without esophagitis Qualified Code(s): K21.9 - Gastro -esophageal reflux disease without esophagitis (4) Hypertension Status: Chronic Qualifiers: Hypertension type: essential hypertension Qualified Code(s): I10 - Essential (primary) hypertension (5) Substance induced mood disorder Status: Suspected - AMA Did Patient Leave Against Medical Advice: No
== END 2018-04-29 09:00 | disposition home or self-care (01) | DRG 773 ==
LOC: YASAS 19:05 → Y3N 21:54
PROVIDERS: ADMIT Surgery; ATTEND Surgery
PROC: HZ2ZZZZ Detoxification Services for Substance Abuse Treatment (ICD-10-PCS; principal; 2018-04-24)
DX: F11.23 Opioid dependence with withdrawal (principal); F10.230 Alcohol dependence with withdrawal, uncomplicated; F13.230 Sedative, hypnotic or anxiolytic dependence with withdrawal, uncomplicated; F17.210 Nicotine dependence, cigarettes, uncomplicated; F19.24 Other psychoactive substance dependence with psychoactive substance-induced mood disorder; F32.9 Major depressive disorder, single episode, unspecified; F41.9 Anxiety disorder, unspecified; I10 Essential (primary) hypertension; K21.9 Gastro-esophageal reflux disease without esophagitis; G47.00 Insomnia, unspecified; M79.10 Myalgia, unspecified site; L25.9 Unspecified contact dermatitis, unspecified cause
CPT/HCPCS: 36415; 80053; 85027; 86593; J0475

== ENCOUNTER 2018-06-15 15:18 | Inpatient (IN) | payer OTHER ==
[2018-06-15 21:24] VITALS: BMI 33.5
--- NOTE | 2018-06-15 22:04 | HP ---
COWS - Scale Resting Pulse: 1= TN 81-100 Sweatin=Flushed/Facial Moisture Restless Observation: 3= Extraneous Movement Pupil Size: 2= Moderately Dilated (Pupils = 5 mm) Bone or Joint Aches: 1= Mild Discomfort Runny Nose/ Eye Tearin= Nasal Congestion GI Upset > 30mins: 2= Nausea/Diarrhea Tremor Observation: 1= Tremor [place], Not Seen Yawning Observation: 1= 1-2x During Session Anxiety or Irritability: 2=Irritable/Anxious Goose Flesh Skin: 0=Smooth Skin COWS Score: 16 CIWA Score Nausea/Vomitin Muscle Tremors: 3 Anxiety: 3 Agitation: 4-Moderately Restless Paroxysmal Sweats: 3 Orientation: 0-Oriented Tacttile Disturbances: 0-None Auditory Disturbances: 0-None Visual Disturbances: 0-None Headache: 3-Moderate CIWA-Ar Total Score: 19 - Admission Criteria OASAS Guidelines: Admission for Medically Managed Detox: Requires at least one of the followin. CIWA greater than 12 2. Seizures within the past 24 hours 3. Delirium tremens within the past 24 hours 4. Hallucinations within the past 24 hours 5. Acute intervention needed for co occurring medical disorder 6. Acute intervention needed for co occurring psychiatric disorder 7. Severe withdrawal that cannot be handled at a lower level of care (continued vomiting, continued diarrhea, abnormal vital signs) requiring intravenous medication and/or fluids 8. Patient presents the following: CIWA greater than 12 Admission Criteria Met: Admission criteria met Admission ROS [facility] Chief Complaint: Here for heroin and alcohol withdrawal. Allergies/Adverse Reactions: Allergies Allergy/AdvReac Type Severity Reaction Status Date / Time No Known Allergies Allergy Verified 06/15/18 21:11 History of Present Illness: Here for detox. Alcohol use began at age 10. Current use x 1 year. Heroin use began at age 27. Uses IV. Denies sharing needles or works. Last overdose 1 month ago. No Narcan Kit at home. Willing to accept a prescription at discharge. Is considering Naltrexone. Illicit Methadone use began at age 27. States only uses when heroin is not available. Marijuana use began at age 10. Valium 10 mg one 3-4 x/week. Nicotine use began at age [age]. Denies hx seizures or blackouts. PMHx: GERD, Hypertension, multiple Torn ligaments, MHHx: Anxiety and depression. Denies thoughts of harming self or others. Does not see a MH Provider. States medications are prescribed by his PCP. Patient Name: Anthony Garcia Date: 1980 Address: [address] [place], [place] [id number] Sex: Male Rx Written Rx Dispensed Drug Quantity Days Supply Prescriber Name 08/27/2017 08/30/2017 codeine-guaifen 10-100 mg/5 ml 180ml 10 Gagandeep Abernatyh R () Exam Limitations: No Limitations - Ebola screening Have you traveled outside of the country in the last 21 days: No Have you had contact with anyone from an Ebola affected area: No Have you been sick,other than usual withdrawal symptoms: No (Denies recent exposure to measles) Do you have a fever: No - Review of Systems Constitutional: Diaphoresis, Changes in sleep (Difficulty falling asleep - not on meds) EENT: reports: No Symptoms Reported Respiratory: reports: No Symptoms reported Cardiac: reports: No Symptoms Reported GI: reports: Constipated, Nausea, Indigestion (Heart burn - takes omeprazole or protonix) : reports: No Symptoms Reported Musculoskeletal: reports: Joint Pain ((R) shoulder, both hips, (L) knee - takes gabapentin. Shoulder sharp, nagging, Hip pain w/ sciatica Pain is a "10". pain increases w/ standing long, lifting. States nothing makes it better.) Integumentary: reports: Rash (Allergic rash on hands r/t touching silver or metals.) Neuro: reports: Headache (Frontal pressure headache - mild), Numbness ( Intermittent numbness (R) shoulder and (L) hip) Endocrine: reports: Increased Thirst Hematology: reports: No Symptoms Reported Psychiatric: reports: Judgement Intact, Orientated x3, Agitated, Anxious, Depressed (Denies thoughts of harming self or others.) Other Systems: Reviewed and Negative Patient History - Patient Medical History Hx Anemia: No Hx Asthma: No Hx Chronic Obstructive Pulmonary Disease (COPD): No Hx Cancer: No Hx Cardiac Disorders: No Hx Congestive Heart Failure: No Hx Hypertension: No Hx Hypercholesterolemia: No Hx Pacemaker: No HX Cerebrovascular Accident: No Hx Seizures: No Hx Dementia: No Hx Diabetes: No Hx Gastrointestinal Disorders: Yes (GERD - Omeprazole) Hx Liver Disease: No Hx Genitourinary Disorders: No Hx Sexually Transmitted Disorders: No Hx Renal Disease (ESRD): No Hx Thyroid Disease: No Hx Human Immunodeficiency Virus (HIV): No (LAST 05/09 NEGATIVE) Hx Hepatitis C: No (LAST TESTED: 02/2016: NEGATIVE.) Hx Depression: Yes (Wellbutrin XL ) Hx Suicide Attempt: No Hx Bipolar Disorder: No Hx Schizophrenia: No - Patient Surgical History Past Surgical History: No Hx Neurologic Surgery: No Hx Cataract Extraction: No Hx Cardiac Surgery: No Hx Lung Surgery: No Hx Breast Surgery: No Hx Breast Biopsy: No Hx Abdominal Surgery: No Hx Appendectomy: No Hx Cholecystectomy: No Hx Genitourinary Surgery: No Hx Section: No Hx Orthopedic Surgery: No Anesthesia Reaction: Yes (Woke prematurely from Anesthesia used in Shoulder surgery: 2016.) - PPD History Previous Implant?: Yes Documented Results: Negative w/proof Implanted On Prior [facility] Admission?: Yes Date: 03/14/18 Results: 0 mm PPD to be Administered?: No - Smoking Cessation Smoking history: Current every day smoker Have you smoked in the past 12 months: Yes Aproximately how many cigarettes per day: 20 Cigars Per Day: 0 Hx Chewing Tobacco Use: No Initiated information on smoking cessation: Yes 'Breaking Loose' booklet given: 06/15/18 - Substance & Tx. History Hx Alcohol Use: Yes Hx Substance Use: Yes Substance Use Type: Alcohol, Heroin, Marijuana, Opiates Hx Substance Use Treatment: Yes (detox, rehab, past MMTP. ) - Substances abused Heroin Substance route: Injection Frequency: Daily Amount used: 10 bags Age of first use: 27 Date of last use: 06/13/18 Marijuana/Hashish Substance route: Smoking Frequency: Daily Amount used: 2-3 blunts Age of first use: 10 Date of last use: 06/15/18 Alcohol Substance route: Oral Frequency: Daily Amount used: Henessy 1 pint Age of first use: 10 Date of last use: 06/14/18 Non-Rx Methadone Substance route: Oral Frequency: 1-2 times per week Amount used: 40-60mg Age of first use: 27 Date of last use: 06/15/18 Family Disease History - Family Disease History Family Disease History: Heart Disease: Mother (HTN, Osteoporosis.), Respiratory : Son (Asthma.), Other: Father (Osteoarthritis.), Mother Admission Physical Exam BHS - Vital Signs Vital Signs: Vital Signs - 24 hr 06/15/18 21:05 Temperature 97.7 F Pulse Rate 90 Respiratory 18 Rate Blood Pressure 109/79 - Physical General Appearance: Yes: Nourished, Mild Distress, Tremorous, Sweating ( Increased facial moisture), Anxious HEENTM: Yes: EOMI, Hearing grossly Normal, Normocephalic, LUC (Pupils = 5 mm), Pharynx Normal, Nasal Congestion Respiratory: Yes: Lungs Clear, Normal Breath Sounds, No Respiratory Distress Neck: Yes: No masses,lesions,Nodules, Supple Breast: Yes: Breast Exam Deferred Cardiology: Yes: Regular Rhythm, Regular Rate, S1, S2 Abdominal: Yes: Soft, Increased Bowel Sounds, Protuberent (Increased abdominal adiposity), Hernia (Small reducible umbilical hernia.) Genitourinary: Yes: Within Normal Limits Back: Yes: Normal Inspection Musculoskeletal: Yes: full range of Motion, Gait Steady Extremities: Yes: Normal Capillary Refill, Normal Range of Motion, Tremors (Mild ) Neurological: Yes: 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 No increased warmth, redness.) Lymphatic: Yes: Within Normal Limits - Diagnostic (1) History of chronic back pain Current Visit: Yes Status: Chronic (2) Alcohol dependence with uncomplicated withdrawal Current Visit: Yes Status: Acute (3) Nicotine dependence Current Visit: Yes Status: Chronic Qualifiers: Nicotine product type: cigarettes Substance use status: in withdrawal Qualified Code(s): F17.213 - Nicotine dependence, cigarettes, with withdrawal (4) Opioid dependence with withdrawal Current Visit: Yes Status: Acute (5) Cannabis dependence, uncomplicated Current Visit: Yes Status: Chronic (6) Chronic joint pain Current Visit: Yes Status: Chronic (7) GERD (gastroesophageal reflux disease) Current Visit: Yes Status: Chronic Qualifiers: Esophagitis presence: without esophagitis Qualified Code(s): K21.9 - Gastro -esophageal reflux disease without esophagitis (8) Contact dermatitis Current Visit: Yes Status: Chronic Qualifiers: Contact dermatitis type: unspecified Contact dermatitis trigger: metal Qualified Code(s): L23.0 - Allergic contact dermatitis due to metals Cleared for Admission BHS - Detox or Rehab S Level of Care: Medically Managed Detox Regimen/Protocol: Methadone/Librium Inpatient Rehab Admission - Rehab Decision to Admit Inpatient rehab admission?: No
[2018-06-15] MEDS ORDERED: MAGNESIUM HYDROX 2400MG/30ML ORAL SUSPENSION 30 ML CUP PO PRN (22:34)
[2018-06-15] MEDS ORDERED: BISMUTH SUBSALICYLATE 524 MG/30 ML UD PO PRN (22:34)
[2018-06-15] MEDS ORDERED: guaiFENesin 200 MG/10 ML 10 ML UNIT-DOSE CUPS PO PRN (22:34)
[2018-06-15] MEDS ORDERED: cloNIDine HCL 0.1 MG TABLET PO PRN (22:34)
[2018-06-15] MEDS ORDERED: MAG HYDROX/AL HYDROX/SIMETH 30 ML UNIT-DOSE CUP PO PRN (22:34)
[2018-06-15] MEDS ORDERED: MENTHOL/PHENOL 1 EACH UD MM PRN (22:34)
[2018-06-15] MEDS ORDERED: MAGNESIUM CITRATE 300 ML BOTTLE PO PRN (22:34)
[2018-06-15] MEDS ORDERED: ACETAMINOPHEN 325 MG TABLET (FP) PO PRN ×2 (22:34)
[2018-06-15] MEDS ORDERED: chlordiazePOXIDE HCL 25 MG CAPSULE PO PRN (22:40)
[2018-06-15] MEDS ORDERED: IBUPROFEN 400 MG TABLET (FP) PO PRN (22:53)
[2018-06-15] MEDS ORDERED: METHADONE HCL 10 MG TABLET (FOR DETOX USE ONLY) PO ONE (23:00)
[2018-06-15] MEDS ORDERED: GABAPENTIN 300 MG CAPSULE (FP) PO SCH (23:00)
[2018-06-16] MEDS: chlordiazePOXIDE HCL 25 MG CAPSULE PO SCH ×5 (00:26→22:04)
[2018-06-16] MEDS: DOCUSATE SODIUM 100 MG CAPSULE (FP) PO SCH ×3 (05:22→22:03)
[2018-06-16] MEDS: GABAPENTIN 400 MG CAPSULE (FP) PO SCH ×3 (05:22→22:04)
[2018-06-16] MEDS ORDERED: METHADONE HCL 10 MG TABLET (FOR DETOX USE ONLY) PO ONE (10:00)
--- NOTE | 2018-06-16 10:27 | CONSULT ---
[facility] Psychiatric Consult - Data Date of interview: 06/16/18 Admission source: [facility] Identifying data: Readmission to [facility] for this 37 y/o male self- referred for detoxification (heroin, cannabis, alcohol, benzodiazepine). Examined at [address] [place] [address]. Patient is single, a father of one, domiciled, unemployed and dependent on relatives for financial support. Substance Abuse History: Discussed with patient in this interview. Details in current [facility] report : Smoking history: Current every day smoker. Have you smoked in the past 12 months: Yes. Aproximately how many cigarettes per day: 20. Cigars Per Day: 0. Hx Chewing Tobacco Use: No. Initiated information on smoking cessation: Yes. 'Breaking Loose' booklet given: 06/15/18. - Substance & Tx. History. Hx Alcohol Use: Yes. Hx Substance Use: Yes. Substance Use Type : Alcohol, Heroin, Marijuana, Opiates. Hx Substance Use Treatment: Yes (detox, rehab, past MMTP. ). - Substances abused. Heroin. Substance route: Injection. Frequency: Daily. Amount used: 10 bags. Age of first use: 27. Date of last use: 06/13/18. Marijuana/Hashish. Substance route: Smoking. Frequency: Daily. Amount used: 2-3 blunts. Age of first use: 10. Date of last use: 06/15/18. Alcohol. Substance route: Oral. Frequency: Daily. Amount used: Henessy 1 pint. Age of first use: 10. Date of last use: . Non-Rx Methadone. Substance route: Oral. Frequency: 1-2 times per week. Amount used: 40-60mg. Age of first use: 27. Date of last use: 06/15/18 Medical History: Hypertension. Psychiatric History: No reported history of psychiatric hospitalizations. Diagnosed with MDD. Mr Garcia started psychiatric treatment in 2006 (during incarceration).Patient is managed on a regimen of wellbutrin XL 450 mg/day + gabapentin 1200 mg po tid. No affiliation with any psychiatric OPD program ( psychotropics are refilled by primary care physicians). Patient denies history of suicide attempts. Physical/Sexual Abuse/Trauma History: No history. Additional Comment: Toxicology not available. Mental Status Exam - Mental Status Exam Alert and Oriented to: Time, Place, Person Cognitive Function: Good Patient Appearance: Well Groomed (obese, tattoos on right forearm) Mood: Nervous, Withdrawn, Anxious Affect: Mood Congruent, Constricted Patient Behavior: Fatigued, Cooperative Speech Pattern: Clear, Appropriate Voice Loudness: Normal Thought Process: Goal Oriented Thought Disorder: Not Present Hallucinations: Denies Suicidal Ideation: Denies Homicidal Ideation: Denies Insight/Judgement: Poor Sleep: Well Appetite: Good Muscle strength/Tone: Normal Gait/Station: Normal Psychiatric Findings - Problem List ([place] 1, 2,3) (1) Alcohol dependence with uncomplicated withdrawal Current Visit: Yes Status: Acute (2) Opioid dependence with withdrawal Current Visit: Yes Status: Acute (3) Sedative hypnotic or anxiolytic dependence Current Visit: Yes Status: Chronic (4) Cannabis dependence, uncomplicated Current Visit: Yes Status: Chronic (5) Nicotine dependence Current Visit: Yes Status: Chronic Qualifiers: Nicotine product type: cigarettes Substance use status: in withdrawal Qualified Code(s): F17.213 - Nicotine dependence, cigarettes, with withdrawal (6) MDD (major depressive disorder) Current Visit: Yes Status: Chronic (7) Substance induced mood disorder Current Visit: Yes Status: Chronic (8) Insomnia Current Visit: Yes Status: Chronic - Initial Treatment Plan Initial Treatment Plan: Psychoeducation. AA/NA meetings. Support. Sleep hygiene. Wellbutrin XL 450 mg po daily @ 8:00 AM (patient's specific request). Verified via refills of 06/12 + 06/14/18 at [facility] [id number]. Side effects/benefits discussed. Patient is made aware of potential for seizures. Mr Garcia is in agreement with this plan of care. Observation.
--- NOTE | 2018-06-16 10:31 | PN ---
[facility] CIWA - CIWA Score Nausea/Vomitin-Mild Nausea/No Vomiting Muscle Tremors: 4-Moderate,w/Arms Extend Anxiety: 3 Agitation: 2 Paroxysmal Sweats: 1-Minimal Palms Moist Orientation: 2-Disoriented Date<2 days Tacttile Disturbances: 0-None Auditory Disturbances: 0-None Visual Disturbances: 0-None Headache: 2-Mild CIWA-Ar Total Score: 15 BHS COWS - Scale Resting Pulse: 0= DC 80 or Below Sweatin= Chills/Flushing Restless Observation: 0= Sits Still Pupil Size: 0= Normal to Room Light Bone or Joint Aches: 2= Severe Diffuse Aches Runny Nose/ Eye Tearin= Nasal Congestion GI Upset > 30mins: 2= Nausea/Diarrhea Tremor Observation of Outstretched Hands: 2= Slight Tremor Visible Yawning Observation: 2= >3x During Session Anxiety or Irritability: 2=Irritable/Anxious Goose Flesh Skin: 0=Smooth Skin COWS Score: 12 S Progress Note (SOAP) Subjective: doing ok today with librium and methadone detox regimen Objective: 06/16/18 10:33 Vital Signs Temperature 97.1 F L 06/16/18 09:30 Pulse Rate 68 06/16/18 09:30 Respiratory Rate 20 06/16/18 09:30 Blood Pressure 101/67 06/16/18 09:30 O2 Sat by Pulse Oximetry (%) 06/16/18 10:33 lab pending Assessment: 06/16/18 10:33 withdrawal sx Plan: continue detox
--- NOTE | 2018-06-16 10:31 | EKG ---
Test Reason : Blood Pressure : / mmHG Vent. Rate : 090 BPM Atrial Rate : 090 BPM P-R Int : 142 ms QRS Dur : 106 ms QT Int : 388 ms P-R-T Axes : 066 053 011 degrees QTc Int : 474 ms NORMAL SINUS RHYTHM POSSIBLE LEFT ATRIAL ENLARGEMENT CANNOT RULE OUT INFERIOR INFARCT (CITED ON OR BEFORE 14-JUL-2016) ABNORMAL ECG WHEN COMPARED WITH ECG OF 14-JUL-2016 21:28, NO SIGNIFICANT CHANGE WAS FOUND Confirmed by BRODERICK WOMACK MD ([id number]) on 06/16/2018 10:31:46 AM Referred By: Confirmed By:BRODERICK WOMACK MD
[2018-06-16] MEDS: PATIENT'S OWN MEDICATION (NON-FORMULARY) (Meloxicam [Meloxicam] 7.5 MG) PO SCH ×2 (10:50→22:04)
[2018-06-16] MEDS: PANTOPRAZOLE 20 MG TABLET (FP) PO SCH (10:50)
[2018-06-16] MEDS: PRENATAL VITAMINS W/ FOLIC ACID TABLET (FP) PO SCH (10:50)
[2018-06-16] MEDS: NICOTINE POLACRILEX 2 MG GUM BUC PRN (10:51)
[2018-06-16] MEDS: NICOTINE 21 MG/24 HOURS TOPICAL PATCH TD SCH (10:51)
[2018-06-16 12:01] LABS: HEMATOCRIT 45.5 % (35.4-49); HEMOGLOBIN 15.4 GM/dL (11.7-16.9); MCH 30.6 pg (25.7-33.7); MCHC 33.8 g/dl (32.0-35.9); MEAN CELL VOLUME 90.3 fl (80-96); MEAN PLT VOLUME 12.5 fl (7.5-11.1); PLATELET COUNT 88 K/MM3 (134-434); RBC 5.04 M/mm3 (4.00-5.60); RDW 14.6 % (11.9-15.9); WHITE BLOOD COUNT 5.5 K/mm3 (4.0-10.0)
[2018-06-16 12:05] LABS: ALBUMIN 3.7 g/dl (3.4-5.0); ALK PHOS 82 U/L (45-117); ANION GAP 6 MMOL/L (8-16); BILIRUBIN,TOTAL 0.2 mg/dL (0.2-1); BLOOD UREA NITROGEN 16 mg/dL (7-18); CHLORIDE 105 mmol/L (98-107); CO2 30 mmol/L (21-32); GLUCOSE,RANDOM 127 mg/dL (74-106); POTASSIUM 3.3 mmol/L (3.5-5.1); SGOT/AST 39 U/L (15-37); SGPT/ALT 67 U/L (13-61); SODIUM 140 mmol/L (136-145); TOT PROT 6.5 g/dl (6.4-8.2)
[2018-06-16] MEDS: HYDROCORTISONE 1% TOPICAL CREAM 30 GM TUBE TP SCH ×2 (14:03→22:05)
[2018-06-16] MEDS: THIAMINE HCL 100 MG TABLET (FP) PO SCH (22:03)
[2018-06-17] MEDS: chlordiazePOXIDE HCL 25 MG CAPSULE PO SCH ×3 (05:21→17:09)
[2018-06-17] MEDS: GABAPENTIN 400 MG CAPSULE (FP) PO SCH ×3 (05:21→22:04)
[2018-06-17] MEDS: DOCUSATE SODIUM 100 MG CAPSULE (FP) PO SCH ×3 (05:22→22:04)
[2018-06-17] MEDS ORDERED: METHADONE HCL 10 MG TABLET (FOR DETOX USE ONLY) PO ONE (10:00)
[2018-06-17] MEDS ORDERED: METHADONE HCL 5 MG TABLET (FOR DETOX USE ONLY) PO ONE (10:00)
[2018-06-17] MEDS: PANTOPRAZOLE 20 MG TABLET (FP) PO SCH (10:32)
[2018-06-17] MEDS: HYDROCORTISONE 1% TOPICAL CREAM 30 GM TUBE TP SCH ×2 (10:33→22:06)
[2018-06-17] MEDS: PATIENT'S OWN MEDICATION (NON-FORMULARY) (Meloxicam [Meloxicam] 7.5 MG) PO SCH ×2 (10:33→22:05)
[2018-06-17] MEDS: NICOTINE 21 MG/24 HOURS TOPICAL PATCH TD SCH (10:36)
[2018-06-17] MEDS: PRENATAL VITAMINS W/ FOLIC ACID TABLET (FP) PO SCH (10:36)
--- NOTE | 2018-06-17 13:41 | PN ---
S CIWA - CIWA Score Nausea/Vomitin-Mild Nausea/No Vomiting Muscle Tremors: 3 Anxiety: 3 Agitation: 3 Paroxysmal Sweats: 1-Minimal Palms Moist Orientation: 2-Disoriented Date<2 days Tacttile Disturbances: 0-None Auditory Disturbances: 0-None Visual Disturbances: 0-None Headache: 1-Very Mild CIWA-Ar Total Score: 14 BHS COWS - Scale Resting Pulse: 0= MA 80 or Below Sweatin= Chills/Flushing Restless Observation: 0= Sits Still Pupil Size: 0= Normal to Room Light Bone or Joint Aches: 1= Mild Discomfort Runny Nose/ Eye Tearin= Nasal Congestion GI Upset > 30mins: 2= Nausea/Diarrhea Tremor Observation of Outstretched Hands: 2= Slight Tremor Visible Yawning Observation: 2= >3x During Session Anxiety or Irritability: 2=Irritable/Anxious Goose Flesh Skin: 0=Smooth Skin COWS Score: 11 S Progress Note (SOAP) Subjective: patient throw breakfast on the floor "I want more methadone" chart review that patient admitted on 06/15/18 for alcohol benzo and opiate withdrawal stabilization methadone regimen revised last dose 06/21/18 patient satisfied Objective: 06/17/18 13:46 Vital Signs Temperature 98.4 F 06/17/18 09:52 Pulse Rate 65 06/17/18 09:52 Respiratory Rate 20 06/17/18 09:52 Blood Pressure 102/67 06/17/18 09:52 O2 Sat by Pulse Oximetry (%) Laboratory Last Values WBC 5.5 K/mm3 (4.0-10.0) 06/16/18 07:30 RBC 5.04 M/mm3 (4.00-5.60) 06/16/18 07:30 Hgb 15.4 GM/dL (11.7-16.9) 06/16/18 07:30 Hct 45.5 % (35.4-49) 06/16/18 07:30 MCV 90.3 fl (80-96) 06/16/18 07:30 MCH 30.6 pg (25.7-33.7) 06/16/18 07:30 MCHC 33.8 g/dl (32.0-35.9) 06/16/18 07:30 RDW 14.6 % (11.9-15.9) 06/16/18 07:30 Plt Count 88 K/MM3 (134-434) L 06/16/18 07:30 MPV 12.5 fl (7.5-11.1) H D 06/16/18 07:30 Sodium 140 mmol/L (136-145) 06/16/18 07:30 Potassium 3.3 mmol/L (3.5-5.1) L 06/16/18 07:30 Chloride 105 mmol/L (98-107) 06/16/18 07:30 Carbon Dioxide 30 mmol/L (21-32) 06/16/18 07:30 Anion Gap 6 MMOL/L (8-16) L 06/16/18 07:30 BUN 16 mg/dL (7-18) 06/16/18 07:30 Creatinine 1.0 mg/dL (0.55-1.3) 06/16/18 07:30 Creat Clearance w eGFR 83.19 (>60) 06/16/18 07:30 Random Glucose 127 mg/dL (74-106) H 06/16/18 07:30 Calcium 9.0 mg/dL (8.5-10.1) 06/16/18 07:30 Total Bilirubin 0.2 mg/dL (0.2-1) 06/16/18 07:30 AST 39 U/L (15-37) H 06/16/18 07:30 ALT 67 U/L (13-61) H 06/16/18 07:30 Alkaline Phosphatase 82 U/L (45-117) 06/16/18 07:30 Total Protein 6.5 g/dl (6.4-8.2) 06/16/18 07:30 Albumin 3.7 g/dl (3.4-5.0) 06/16/18 07:30 RPR Titer Nonreactive (NONREACTIVE) 06/16/18 07:30 lab noted K+ supplement Assessment: 06/17/18 13:50 alcohol benzo and opoate withdrawal sx Plan: continue detox
[2018-06-17] MEDS: POTASSIUM CHLORIDE ORAL LIQUID 20 MEQ/15 ML PO SCH ×2 (15:39→17:09)
[2018-06-17] MEDS: chlordiazePOXIDE HCL 10 MG CAPSULE PO SCH (22:04)
[2018-06-17] MEDS: MELATONIN 5 MG TABLETS PO PRN (22:05)
[2018-06-17] MEDS: THIAMINE HCL 100 MG TABLET (FP) PO SCH (22:05)
[2018-06-17] MEDS ORDERED: chlordiazePOXIDE HCL 10 MG CAPSULE PO PRN (23:00)
[2018-06-18] MEDS: chlordiazePOXIDE HCL 10 MG CAPSULE PO SCH ×4 (05:50→22:22)
[2018-06-18] MEDS: GABAPENTIN 400 MG CAPSULE (FP) PO SCH ×3 (05:52→22:22)
[2018-06-18] MEDS: DOCUSATE SODIUM 100 MG CAPSULE (FP) PO SCH ×3 (05:52→22:22)
[2018-06-18] MEDS ORDERED: METHADONE HCL 10 MG TABLET (FOR DETOX USE ONLY) PO ONE ×2 (10:00)
[2018-06-18] MEDS ORDERED: PROCHLORPERAZINE MALEATE 5 MG TABLET PO PRN (10:17)
[2018-06-18] MEDS: PANTOPRAZOLE 20 MG TABLET (FP) PO SCH (10:32)
[2018-06-18] MEDS: NICOTINE 21 MG/24 HOURS TOPICAL PATCH TD SCH (10:32)
[2018-06-18] MEDS: PATIENT'S OWN MEDICATION (NON-FORMULARY) (Meloxicam [Meloxicam] 7.5 MG) PO SCH ×2 (10:32→22:24)
[2018-06-18] MEDS: PRENATAL VITAMINS W/ FOLIC ACID TABLET (FP) PO SCH (10:33)
[2018-06-18] MEDS: HYDROCORTISONE 1% TOPICAL CREAM 30 GM TUBE TP SCH ×2 (10:33→22:24)
[2018-06-18] MEDS: NICOTINE POLACRILEX 2 MG GUM BUC PRN ×3 (10:36→19:15)
[2018-06-18] MEDS: METHOCARBAMOL 500 MG TABLET PO PRN (15:44)
--- NOTE | 2018-06-18 16:16 | PN ---
[facility] CIWA - CIWA Score Nausea/Vomitin Muscle Tremors: 3 Anxiety: 3 Agitation: 2 Paroxysmal Sweats: 3 Orientation: 0-Oriented Tacttile Disturbances: 0-None Auditory Disturbances: 0-None Visual Disturbances: 2-Mild Sensitivity Headache: 0-None Present CIWA-Ar Total Score: 15 S COWS - Scale Resting Pulse: 1= [place] 81-100 Sweatin= Chills/Flushing Restless Observation: 1= Difficult to Sit Still Pupil Size: 0= Normal to Room Light Bone or Joint Aches: 2= Severe Diffuse Aches Runny Nose/ Eye Tearin= None GI Upset > 30mins: 2= Nausea/Diarrhea Tremor Observation of Outstretched Hands: 2= Slight Tremor Visible Yawning Observation: 1= 1-2x During Session Anxiety or Irritability: 2=Irritable/Anxious Goose Flesh Skin: 0=Smooth Skin COWS Score: 12 S Progress Note (SOAP) Subjective: Sweating, Tremors, Stomach Cramping, Interrupted Sleep, Body Aches, Diarrhea, Nausea. Objective: PATIENT A & O X 3, OBSERVED AMBULATING ON UNIT UNASSISTED. IN NO ACUTE DISTRESS. 06/18/18 16:15 Vital Signs Temperature 97.3 F L 06/18/18 13:17 Pulse Rate 79 06/18/18 13:17 Respiratory Rate 18 06/18/18 13:17 Blood Pressure 128/82 06/18/18 13:17 O2 Sat by Pulse Oximetry (%) Laboratory Tests 06/16/18 06/16/18 06/16/18 07:30 07:30 07:30 WBC 5.5 RBC 5.04 Hgb 15.4 Hct 45.5 MCV 90.3 MCH 30.6 MCHC 33.8 RDW 14.6 Plt Count 88 L MPV 12.5 H D Sodium 140 Potassium 3.3 L Chloride 105 Carbon Dioxide 30 Anion Gap 6 L BUN 16 Creatinine 1.0 Creat Clearance w eGFR 83.19 Random Glucose 127 H Calcium 9.0 Total Bilirubin 0.2 AST 39 H ALT 67 H Alkaline Phosphatase 82 Total Protein 6.5 Albumin 3.7 RPR Titer Nonreactive LABS NOTED. PATIENT HAS HAD LOW PLATELET LEVELS ON PREVIOUS ADMISSIONS. 06/18/18 16:19 Assessment: 06/18/18 16:18 WITHDRAWAL SYMPTOMS. HYPOKALEMIA. THROMBOCYTOPENIA. Plan: CONTINUE DETOX. INCREASE DAILY PO FLUID / WATER INTAKE. PRN PEPTO-BISMOL FOR DIARRHEA. PRN COMPAZINE PO FOR NAUSEA.
[2018-06-18] MEDS: THIAMINE HCL 100 MG TABLET (FP) PO SCH (22:22)
[2018-06-18] MEDS: MELATONIN 5 MG TABLETS PO PRN (22:22)
[2018-06-19] MEDS: GABAPENTIN 400 MG CAPSULE (FP) PO SCH ×3 (05:37→22:34)
[2018-06-19] MEDS: DOCUSATE SODIUM 100 MG CAPSULE (FP) PO SCH ×3 (05:38→22:34)
[2018-06-19] MEDS ORDERED: METHADONE HCL 5 MG TABLET (FOR DETOX USE ONLY) PO ONE ×2 (06:00→10:00)
[2018-06-19] MEDS ORDERED: METHADONE HCL 10 MG TABLET (FOR DETOX USE ONLY) PO ONE (10:00)
[2018-06-19] MEDS: PANTOPRAZOLE 20 MG TABLET (FP) PO SCH (10:31)
[2018-06-19] MEDS: PRENATAL VITAMINS W/ FOLIC ACID TABLET (FP) PO SCH (10:31)
[2018-06-19] MEDS: PATIENT'S OWN MEDICATION (NON-FORMULARY) (Meloxicam [Meloxicam] 7.5 MG) PO SCH ×2 (10:31→22:36)
[2018-06-19] MEDS: chlordiazePOXIDE HCL 10 MG CAPSULE PO SCH ×2 (10:32→22:34)
[2018-06-19] MEDS: NICOTINE 21 MG/24 HOURS TOPICAL PATCH TD SCH (10:32)
[2018-06-19] MEDS: HYDROCORTISONE 1% TOPICAL CREAM 30 GM TUBE TP SCH ×2 (10:32→22:35)
[2018-06-19] MEDS: METHOCARBAMOL 500 MG TABLET PO PRN ×2 (10:33→17:11)
--- NOTE | 2018-06-19 16:01 | PN ---
S CIWA - CIWA Score Nausea/Vomitin-No Nausea/No Vomiting Muscle Tremors: None Anxiety: 3 Agitation: 1-Slight > Activity Paroxysmal Sweats: 1-Minimal Palms Moist Orientation: 0-Oriented Tacttile Disturbances: 0-None Auditory Disturbances: 0-None Visual Disturbances: 2-Mild Sensitivity Headache: 0-None Present CIWA-Ar Total Score: 7 BHS COWS - Scale Resting Pulse: 1= [place] 81-100 Sweatin= Chills/Flushing Restless Observation: 1= Difficult to Sit Still Pupil Size: 0= Normal to Room Light Bone or Joint Aches: 2= Severe Diffuse Aches Runny Nose/ Eye Tearin= None GI Upset > 30mins: 0= None Tremor Observation of Outstretched Hands: 0= None Yawning Observation: 1= 1-2x During Session Anxiety or Irritability: 2=Irritable/Anxious Goose Flesh Skin: 0=Smooth Skin COWS Score: 8 S Progress Note (SOAP) Subjective: Interrupted Sleep, Body Aches, Anxious. Objective: PATIENT A & O X 3, OBSERVED AMBULATING ON UNIT UNASSISTED. IN NO ACUTE DISTRESS. 06/19/18 15:59 Vital Signs Temperature 96.8 F L 06/19/18 13:35 Pulse Rate 94 H 06/19/18 13:35 Respiratory Rate 18 06/19/18 13:35 Blood Pressure 123/81 06/19/18 13:35 O2 Sat by Pulse Oximetry (%) Laboratory Tests 06/16/18 06/16/18 06/16/18 07:30 07:30 07:30 WBC 5.5 RBC 5.04 Hgb 15.4 Hct 45.5 MCV 90.3 MCH 30.6 MCHC 33.8 RDW 14.6 Plt Count 88 L MPV 12.5 H D Sodium 140 Potassium 3.3 L Chloride 105 Carbon Dioxide 30 Anion Gap 6 L BUN 16 Creatinine 1.0 Creat Clearance w eGFR 83.19 Random Glucose 127 H Calcium 9.0 Total Bilirubin 0.2 AST 39 H ALT 67 H Alkaline Phosphatase 82 Total Protein 6.5 Albumin 3.7 RPR Titer Nonreactive 06/19/18 10:00 WBC RBC Hgb Hct MCV MCH MCHC RDW Plt Count MPV Sodium Potassium 4.5 Chloride Carbon Dioxide Anion Gap BUN Creatinine Creat Clearance w eGFR Random Glucose Calcium Total Bilirubin AST ALT Alkaline Phosphatase Total Protein Albumin RPR Titer LABS NOTED. Assessment: 06/19/18 15:59 WITHDRAWAL SYMPTOMS. THROMBOCYTOPENIA. ELEVATED LIVER ENZYMES (AST, ALT). 06/19/18 16:00 Plan: CONTINUE DETOX. PATIENT SCHEDULED FOR D/C TOMORROW (PATIENT'S DETOX MEDICATION REGIMEN PREVIOUSLY MODIFIED SO THAT PATIENT MAY BE DISCHARGED TOMORROW BECAUSE HE NEEDS TO RETURN TO WORK EARLY IN AM ON 06/20/2018.
[2018-06-19] MEDS: THIAMINE HCL 100 MG TABLET (FP) PO SCH (22:34)
[2018-06-19] MEDS: MELATONIN 5 MG TABLETS PO PRN (22:35)
[2018-06-20] MEDS ORDERED: METHADONE HCL 5 MG TABLET (FOR DETOX USE ONLY) PO ONE (06:00)
[2018-06-20] MEDS: DOCUSATE SODIUM 100 MG CAPSULE (FP) PO SCH (06:31)
[2018-06-20] MEDS: GABAPENTIN 400 MG CAPSULE (FP) PO SCH (06:31)
--- NOTE | 2018-06-20 08:40 | DS ---
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 narcan nasal kit from pharmacy - Physical Exam Results Vital Signs: Vital Signs Temperature 97 F L 06/20/18 06:21 Pulse Rate 66 06/20/18 06:21 Respiratory Rate 18 06/20/18 06:21 Blood Pressure 100/65 06/20/18 06:21 O2 Sat by Pulse Oximetry (%) Pertinent Admission Physical Exam Findings: alcohol and opiate withdrawal sx Laboratory Last Values WBC 5.5 K/mm3 (4.0-10.0) 06/16/18 07:30 RBC 5.04 M/mm3 (4.00-5.60) 06/16/18 07:30 Hgb 15.4 GM/dL (11.7-16.9) 06/16/18 07:30 Hct 45.5 % (35.4-49) 06/16/18 07:30 MCV 90.3 fl (80-96) 06/16/18 07:30 MCH 30.6 pg (25.7-33.7) 06/16/18 07:30 MCHC 33.8 g/dl (32.0-35.9) 06/16/18 07:30 RDW 14.6 % (11.9-15.9) 06/16/18 07:30 Plt Count 88 K/MM3 (134-434) L 06/16/18 07:30 MPV 12.5 fl (7.5-11.1) H D 06/16/18 07:30 Sodium 140 mmol/L (136-145) 06/16/18 07:30 Potassium 4.5 mmol/L (3.5-5.1) 06/19/18 10:00 Chloride 105 mmol/L (98-107) 06/16/18 07:30 Carbon Dioxide 30 mmol/L (21-32) 06/16/18 07:30 Anion Gap 6 MMOL/L (8-16) L 06/16/18 07:30 BUN 16 mg/dL (7-18) 06/16/18 07:30 Creatinine 1.0 mg/dL (0.55-1.3) 06/16/18 07:30 Creat Clearance w eGFR 83.19 (>60) 06/16/18 07:30 Random Glucose 127 mg/dL (74-106) H 06/16/18 07:30 Calcium 9.0 mg/dL (8.5-10.1) 06/16/18 07:30 Total Bilirubin 0.2 mg/dL (0.2-1) 06/16/18 07:30 AST 39 U/L (15-37) H 06/16/18 07:30 ALT 67 U/L (13-61) H 06/16/18 07:30 Alkaline Phosphatase 82 U/L (45-117) 06/16/18 07:30 Total Protein 6.5 g/dl (6.4-8.2) 06/16/18 07:30 Albumin 3.7 g/dl (3.4-5.0) 06/16/18 07:30 RPR Titer Nonreactive (NONREACTIVE) 06/16/18 07:30 lab noted no motrin - Treatment Hospital Course: Detox Protocol Followed, Detoxed Safely, Responded well, Discharged Condition Good, Rehab Referral Accepted Patient has Accepted a Rehab Referral to: [facility] - Medication Discharge Medications: Ambulatory Orders Bupropion HCl [Wellbutrin Xl -] 450 mg PO DAILY #60 tab.sr.24h 05/10/16 Gabapentin [Neurontin -] 1,200 mg PO TID #360 cap 07/29/16 Omeprazole 20 mg PO DAILY #30 tab 07/29/16 Ibuprofen [Motrin -] 800 mg PO PRN 06/15/18 Meloxicam 7.5 mg PO BID 06/15/18 Naloxone HCl [Narcan] 4 mg NS ASDIR PRN #1 spray 06/20/18 - Diagnosis (1) Alcohol dependence with uncomplicated withdrawal Status: Acute (2) Opioid dependence with withdrawal Status: Acute (3) GERD (gastroesophageal reflux disease) Status: Chronic Qualifiers: Esophagitis presence: without esophagitis Qualified Code(s): K21.9 - Gastro -esophageal reflux disease without esophagitis (4) Hypertension Status: Chronic Qualifiers: Hypertension type: essential hypertension Qualified Code(s): I10 - Essential (primary) hypertension (5) Substance induced mood disorder Status: Suspected - AMA Did Patient Leave Against Medical Advice: No
[2018-06-20] MEDS: HYDROCORTISONE 1% TOPICAL CREAM 30 GM TUBE TP SCH (09:22)
[2018-06-20] MEDS: PATIENT'S OWN MEDICATION (NON-FORMULARY) (Meloxicam [Meloxicam] 7.5 MG) PO SCH (09:22)
[2018-06-20] MEDS: PRENATAL VITAMINS W/ FOLIC ACID TABLET (FP) PO SCH (09:22)
[2018-06-20] MEDS: NICOTINE 21 MG/24 HOURS TOPICAL PATCH TD SCH (09:22)
[2018-06-20] MEDS: PANTOPRAZOLE 20 MG TABLET (FP) PO SCH (09:23)
[2018-06-20 09:26] VITALS: BP 119/74; PULSE 82; TEMP 98.5
[2018-06-20] MEDS ORDERED: METHADONE HCL 10 MG TABLET (FOR DETOX USE ONLY) PO ONE (10:00)
[2018-06-21] MEDS ORDERED: METHADONE HCL 5 MG TABLET (FOR DETOX USE ONLY) PO ONE (06:00)
== END 2018-06-20 09:00 | disposition home or self-care (01) | DRG 773 ==
LOC: YASAS 15:18 → Y3N 22:50
PROVIDERS: ADMIT Surgery; ATTEND Surgery
PROC: HZ2ZZZZ Detoxification Services for Substance Abuse Treatment (ICD-10-PCS; principal; 2018-06-15)
DX: F10.230 Alcohol dependence with withdrawal, uncomplicated (principal); F11.23 Opioid dependence with withdrawal; F13.20 Sedative, hypnotic or anxiolytic dependence, uncomplicated; F12.20 Cannabis dependence, uncomplicated; F17.213 Nicotine dependence, cigarettes, with withdrawal; F19.24 Other psychoactive substance dependence with psychoactive substance-induced mood disorder; F33.9 Major depressive disorder, recurrent, unspecified; G47.00 Insomnia, unspecified; I10 Essential (primary) hypertension; K21.9 Gastro-esophageal reflux disease without esophagitis; D69.6 Thrombocytopenia, unspecified; E87.6 Hypokalemia; R94.5 Abnormal results of liver function studies; M54.9 Dorsalgia, unspecified; G89.29 Other chronic pain; L23.0 Allergic contact dermatitis due to metals
CPT/HCPCS: 36415; 80053; 84132; 85027; 86593; 93005; 93010

== ENCOUNTER 2018-10-06 12:20 | Inpatient (IN) | payer OTHER ==
[2018-10-06 14:47] VITALS: BMI 30.9
[2018-10-06] MEDS ORDERED: MAGNESIUM HYDROX 2400MG/30ML ORAL SUSPENSION 30 ML CUP PO PRN (16:12)
[2018-10-06] MEDS ORDERED: MENTHOL/PHENOL 1 EACH UD MM PRN (16:12)
[2018-10-06] MEDS ORDERED: MAGNESIUM CITRATE 300 ML BOTTLE PO PRN (16:12)
[2018-10-06] MEDS ORDERED: MAG HYDROX/AL HYDROX/SIMETH 30 ML UNIT-DOSE CUP PO PRN (16:12)
[2018-10-06] MEDS ORDERED: cloNIDine HCL 0.1 MG TABLET PO PRN (16:12)
[2018-10-06] MEDS ORDERED: ACETAMINOPHEN 325 MG TABLET (FP) PO PRN (16:12)
[2018-10-06] MEDS ORDERED: MELATONIN 5 MG TABLETS PO PRN (16:12)
[2018-10-06] MEDS ORDERED: BISMUTH SUBSALICYLATE 524 MG/30 ML UD PO PRN (16:12)
--- NOTE | 2018-10-06 16:17 | PN ---
Teaching Attending Note Name of Resident: Lou Carreon ATTENDING PHYSICIAN STATEMENT I saw and evaluated the patient. I reviewed the resident's note and discussed the case with the resident. I agree with the resident's findings and plan as documented. SUBJECTIVE: this 38 years old male with heroin,alcohol,marijuana dependence seeking detox, multiple admissions in detox,IVDU neuropathy,right medial meniscus injury,neuropathy right shoulder OBJECTIVE: withdrawal signs and symptom Vital Signs Temperature 99.1 F 10/06/18 15:20 Pulse Rate 132 H 10/06/18 15:20 Respiratory Rate 20 10/06/18 15:20 Blood Pressure 118/73 10/06/18 15:20 O2 Sat by Pulse Oximetry (%) ASSESSMENT AND PLAN: this patient need inpatient detox,methadone and librium regimen,inpatient rehab after detox for further level of care
--- NOTE | 2018-10-06 16:42 | HP ---
COWS - Scale Resting Pulse: 4= MD > 121 Sweatin= Beads of Sweat on Face Restless Observation: 5= Unable to Sit Still Pupil Size: 0= Normal to Room Light Bone or Joint Aches: 1= Mild Discomfort Runny Nose/ Eye Tearin= None GI Upset > 30mins: 0= None Tremor Observation: 0= None Yawning Observation: 0= None Anxiety or Irritability: 2=Irritable/Anxious Goose Flesh Skin: 0=Smooth Skin COWS Score: 15 CIWA Score Nausea/Vomitin-No Nausea/No Vomiting Muscle Tremors: None Anxiety: 4-Mod. Anxious/Guarded Agitation: 5 Paroxysmal Sweats: 4-Forehead w/Sweat Beads Orientation: 0-Oriented Tacttile Disturbances: 1-Very Mild Itch/Numbness Auditory Disturbances: 0-None Visual Disturbances: 0-None Headache: 0-None Present CIWA-Ar Total Score: 14 - Admission Criteria OASAS Guidelines: Admission for Medically Managed Detox: Requires at least one of the followin. CIWA greater than 12 2. Seizures within the past 24 hours 3. Delirium tremens within the past 24 hours 4. Hallucinations within the past 24 hours 5. Acute intervention needed for co occurring medical disorder 6. Acute intervention needed for co occurring psychiatric disorder 7. Severe withdrawal that cannot be handled at a lower level of care (continued vomiting, continued diarrhea, abnormal vital signs) requiring intravenous medication and/or fluids 8. Admission [facility] Chief Complaint: detox from heroin and ETOH Allergies/Adverse Reactions: Allergies Allergy/AdvReac Type Severity Reaction Status Date / Time No Known Allergies Allergy Verified 10/06/18 14:34 History of Present Illness: Mr. Garcia is a 38yo male with heroin use disorder, marijuana use disorder, alcohol use disorder, chronic shoulder pain, and depression who presents for detox from ETOH and heroin. He has been to detox and rehab multiple times with last detox here on 06/15/18. He reports using 1-1.5 bundles/daily by IV with last use at 3am. He used to inhale but has been injecting for the last 3 years. He has had period of sobriety [id number] then relapsed. He began using at age 27. He has had multiple episodes of OD. He also reports drinking 6pk beer or sometimes hard liquor daily. His last use was 3am. He denies hx of seizures or blackouts. He takes Valium intermittently with last use yesterday. He obtains them from another person. He smokes 1-2 blunts of marijuana daily. He has been smoking 1ppd since age 10. Pt reports anxiety, sweating, and weight loss. Pt denies n/v/d, abdominal pain, MATHUR, and dizziness. PMH: heroin use disorder, marijuana use disorder, alcohol use disorder, chronic shoulder pain, and depression surgical hx: denies NKDA meds: gabapentin, Wellbutrin, omeprazole, meloxicam, ibuprofen family hx: mom-HTN, dad-HTN, denies family hx of substance abuse social hx: lives with spouse in [place] - Ebola screening Have you traveled outside of the country in the last 21 days: No Have you had contact with anyone from an Ebola affected area: No Do you have a fever: No - Review of Systems Constitutional: Diaphoresis, Unexplained wgt Loss EENT: denies: Nose Congestion Respiratory: denies: Cough, Shortness of Breath Cardiac: denies: Chest Pain GI: denies: Diarrhea, Nausea, Vomiting : reports: No Symptoms Reported Musculoskeletal: reports: Joint Pain Integumentary: reports: No Symptoms Reported Neuro: denies: Headache, Dizziness Endocrine: reports: No Symptoms Reported Hematology: reports: No Symptoms Reported Psychiatric: reports: Judgement Intact, Orientated x3, Agitated Patient History - Patient Medical History Hx Anemia: No Hx Asthma: No Hx Chronic Obstructive Pulmonary Disease (COPD): No Hx Cancer: No Hx Cardiac Disorders: No Hx Congestive Heart Failure: No Hx Hypertension: No Hx Hypercholesterolemia: No Hx Pacemaker: No HX Cerebrovascular Accident: No Hx Seizures: No Hx Dementia: No Hx Diabetes: No Hx Gastrointestinal Disorders: No Hx Liver Disease: No Hx Genitourinary Disorders: No Hx Sexually Transmitted Disorders: No Hx Renal Disease (ESRD): No Hx Thyroid Disease: No Hx Human Immunodeficiency Virus (HIV): No (LAST 05/09 NEGATIVE) Hx Hepatitis C: No (LAST TESTED: 02/2016: NEGATIVE.) Hx Depression: Yes Hx Suicide Attempt: No Hx Bipolar Disorder: No Hx Schizophrenia: No - Patient Surgical History Past Surgical History: No Hx Neurologic Surgery: No Hx Cataract Extraction: No Hx Cardiac Surgery: No Hx Lung Surgery: No Hx Breast Surgery: No Hx Breast Biopsy: No Hx Abdominal Surgery: No Hx Appendectomy: No Hx Cholecystectomy: No Hx Genitourinary Surgery: No Hx Section: No Hx Orthopedic Surgery: No Anesthesia Reaction: Yes (Woke prematurely from Anesthesia used in Shoulder surgery: 2016.) - PPD History Date: 03/14/18 Results: 0 mm - Smoking Cessation Smoking history: Current every day smoker Have you smoked in the past 12 months: Yes Aproximately how many cigarettes per day: 20 Cigars Per Day: 0 Hx Chewing Tobacco Use: No Initiated information on smoking cessation: Yes 'Breaking Loose' booklet given: 10/06/18 - Substances abused Heroin Substance route: Injection Frequency: Daily Amount used: 15 - 20 bags Age of first use: 27 Date of last use: 10/06/18 Marijuana/Hashish Substance route: Smoking Frequency: Daily Amount used: 2-3 blunts Age of first use: 10 Date of last use: 10/06/18 Alcohol Substance route: Oral Frequency: Daily Amount used: Henessy 1 pint, 1 6 pck of beer Age of first use: 10 Date of last use: 06/13/18 Non-Rx Methadone Substance route: Oral Frequency: 3-6 times per week Amount used: 60 mg Age of first use: 27 Date of last use: 10/04/18 Family Disease History - Family Disease History Family Disease History: Heart Disease: Mother (HTN, Osteoporosis.), Respiratory : Son (Asthma.), Other: Father (Osteoarthritis.), Mother Admission Physical Exam S - Vital Signs Vital Signs: Vital Signs - 24 hr 10/06/18 10/06/18 14:40 15:20 Temperature 99.1 F 99.1 F Pulse Rate 132 H 132 H Respiratory 20 20 Rate Blood Pressure 118/73 118/73 - Physical General Appearance: Yes: Irritable, Sweating, Anxious HEENTM: Yes: Normocephalic, LUC Respiratory: Yes: Lungs Clear, Normal Breath Sounds Neck: Yes: Within Normal Limits Cardiology: Yes: Regular Rhythm, Tachycardia Abdominal: Yes: Increased Bowel Sounds, Tenderness Back: Yes: Within Normal Limits Musculoskeletal: Yes: Within Normal Limits Extremities: Yes: Within Normal Limits Neurological: Yes: agricultural agent II-XII NML intact, Fully Oriented, Alert, Motor Strength 5/5 Integumentary: Yes: Track Munson (bilateral AC fossa) - Diagnostic (1) Alcohol dependence with uncomplicated withdrawal Current Visit: Yes Status: Chronic (2) Depression Current Visit: Yes Status: Acute Qualifiers: Depression Type: major depressive disorder Major depression recurrence: unspecified whether recurrent (3) Opioid dependence with withdrawal Current Visit: Yes Status: Chronic (4) Cannabis dependence, uncomplicated Current Visit: Yes Status: Chronic (5) GERD (gastroesophageal reflux disease) Current Visit: Yes Status: Chronic Qualifiers: Esophagitis presence: without esophagitis Qualified Code(s): K21.9 - Gastro -esophageal reflux disease without esophagitis (6) Rotator cuff injury Current Visit: Yes Status: Chronic Qualifiers: Laterality: right Cleared for Admission S - Detox or Rehab [facility] Level of Care: Medically Managed Breathalyzer - Breathalyzer Breathalyzer: 0 Urine Drug Screen - Test Device Lot number: [id number] Expiration date: 06/23/19 - Control Is test valid?: Yes - Results Drug screen NEGATIVE: No Urine drug screen results: THC-Marijuana, OXY-Oxycodone, MTD-Methadone, BZO- Benzodiazepines Inpatient Rehab Admission - Rehab Decision to Admit Inpatient rehab admission?: No
[2018-10-06] MEDS ORDERED: IBUPROFEN 400 MG TABLET (FP) PO SCH ×2 (16:45→17:45)
[2018-10-06] MEDS ORDERED: METHADONE HCL 10 MG TABLET (FOR DETOX USE ONLY) PO ONE (17:00)
[2018-10-06] MEDS: NICOTINE 21 MG/24 HOURS TOPICAL PATCH TD SCH (18:29)
[2018-10-06] MEDS: ACETAMINOPHEN 325 MG TABLET (FP) PO PRN (18:30)
[2018-10-06] MEDS: chlordiazePOXIDE HCL 25 MG CAPSULE PO SCH ×2 (18:32→22:18)
[2018-10-06] MEDS: THIAMINE HCL 100 MG TABLET (FP) PO SCH (22:18)
[2018-10-06] MEDS: METHYL SALICYLATE/MENTHOL OINT 30 GM TUBE TP SCH (22:18)
[2018-10-06] MEDS: GABAPENTIN 400 MG CAPSULE (FP) PO SCH (22:18)
[2018-10-06] MEDS: METHOCARBAMOL 500 MG TABLET PO PRN (22:19)
[2018-10-07] MEDS ORDERED: IBUPROFEN 400 MG TABLET (FP) PO PRN (02:00)
[2018-10-07] MEDS: GABAPENTIN 400 MG CAPSULE (FP) PO SCH ×3 (05:12→22:13)
[2018-10-07] MEDS: chlordiazePOXIDE HCL 25 MG CAPSULE PO SCH ×4 (05:12→22:13)
[2018-10-07] MEDS: ACETAMINOPHEN 325 MG TABLET (FP) PO PRN (05:14)
--- NOTE | 2018-10-07 08:52 | CONSULT ---
[facility] Psychiatric Consult - Data Date of interview: 10/07/18 Admission source: Self-referred Identifying data: Mr Garcia is a 38 years old single male, father of a 12 years old son, unemployed with no source of income, homeless seeking detox treatment for alcohol, opioid and cannabis Substance Abuse History: Reports history of alcohol, heroin, non Rx methadone and marijuana use. Refer to addiction counselor's summary for further information Medical History: Significant for chronic right shoulder and right knee pain from a fall. Smokes cigarettes 1 ppd Psychiatric History: Reports seeing a psychiatrist while in senior living from 2006 to 2014. Claims that he was diagnosed with MDD and prescribed Wellbutrin XL 450 mg/ day. Told underwriter that since his release from senior living in 2014, he has been receiving outpatient psychiatric treatment at [facility] in [place] and he is still prescribed Wellbutrin XL 450 mg/day. Denies previous psychiatric hospitalization or suicidal attempt. At present, reports feeling anxious and sleeping poorly Physical/Sexual Abuse/Trauma History: Denies history of abuse of any type as well as DV relationship. No service Additional Comment: Reports history of multiple previous arrests including 5-6 felony convictions. Denies being on parole/probation Mental Status Exam - Mental Status Exam Alert and Oriented to: Time, Place, Person Cognitive Function: Fair Patient Appearance: Well Groomed Mood: Anxious Affect: Appropriate Patient Behavior: Cooperative Speech Pattern: Clear Voice Loudness: Normal Thought Process: Intact, Goal Oriented Thought Disorder: Not Present Hallucinations: Denies Suicidal Ideation: Denies Homicidal Ideation: Denies Insight/Judgement: Poor Sleep: Poorly Appetite: Fair Muscle strength/Tone: Normal Gait/Station: Normal Psychiatric Findings - Problem List (Worth 1, 2,3) (1) MDD (major depressive disorder) Current Visit: Yes Status: Chronic (2) Substance-induced anxiety disorder Current Visit: Yes Status: Acute (3) Substance-induced sleep disorder Current Visit: Yes Status: Acute (4) Alcohol dependence with uncomplicated withdrawal Current Visit: Yes Status: Acute (5) Opioid dependence with withdrawal Current Visit: Yes Status: Acute (6) Cannabis dependence, uncomplicated Current Visit: Yes Status: Acute (7) Nicotine dependence Current Visit: No Status: Chronic Qualifiers: Nicotine product type: cigarettes Substance use status: in withdrawal Qualified Code(s): F17.213 - Nicotine dependence, cigarettes, with withdrawal (8) GERD (gastroesophageal reflux disease) Current Visit: Yes Status: Chronic Qualifiers: Esophagitis presence: without esophagitis Qualified Code(s): K21.9 - Gastro -esophageal reflux disease without esophagitis (9) Rotator cuff injury Current Visit: Yes Status: Chronic Qualifiers: Laterality: right (10) Chronic joint pain Current Visit: No Status: Chronic - Initial Treatment Plan Initial Treatment Plan: 1) Continue Wellbutrin XL 450 mg po daily. 2) Start Melatonin 10 mg po HS prn for insomnia. 3) Continue inpatient detoxification
[2018-10-07] MEDS ORDERED: METHADONE HCL 10 MG TABLET (FOR DETOX USE ONLY) ONE (08:58)
[2018-10-07] MEDS ORDERED: METHADONE HCL 5 MG TABLET (FOR DETOX USE ONLY) ONE (08:58)
[2018-10-07] MEDS: IBUPROFEN 400 MG TABLET (FP) PO PRN ×2 (09:41→17:47)
[2018-10-07] MEDS: PANTOPRAZOLE 20 MG TABLET (FP) PO SCH (09:42)
[2018-10-07] MEDS: PRENATAL VITAMINS W/ FOLIC ACID TABLET (FP) PO SCH (09:42)
[2018-10-07] MEDS: METHYL SALICYLATE/MENTHOL OINT 30 GM TUBE TP SCH ×2 (09:43→22:14)
[2018-10-07] MEDS: NICOTINE 21 MG/24 HOURS TOPICAL PATCH TD SCH (09:44)
[2018-10-07] MEDS ORDERED: METHADONE (DETOX) 20 MG, METHADONE (DETOX) 5 MG PO ONE (10:00)
--- NOTE | 2018-10-07 13:05 | EKG ---
Test Reason : Blood Pressure : / mmHG Vent. Rate : 098 BPM Atrial Rate : 098 BPM P-R Int : 158 ms QRS Dur : 104 ms QT Int : 352 ms P-R-T Axes : 064 062 014 degrees QTc Int : 449 ms NORMAL SINUS RHYTHM CANNOT RULE OUT INFERIOR INFARCT (CITED ON OR BEFORE 14-JUL-2016) ABNORMAL ECG WHEN COMPARED WITH ECG OF 15-JUN-2018 22:05, NO SIGNIFICANT CHANGE WAS FOUND Confirmed by HOLLIS MORALES MD ([id number]) on 10/07/2018 1:04:41 PM Referred By: SHEILA VALVERDE Confirmed By:HOLLIS MORALES MD
[2018-10-07] MEDS: BUPROPION HCL 150 MG, BUPROPION HCL 300 MG PO SCH (14:28)
[2018-10-07] MEDS: METHOCARBAMOL 500 MG TABLET PO PRN ×2 (14:29→22:15)
[2018-10-07] MEDS: chlordiazePOXIDE HCL 25 MG CAPSULE PO PRN (14:29)
[2018-10-07] MEDS ORDERED: NICOTINE POLACRILEX 4 MG GUM BUC PRN (15:56)
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
[2018-10-07] MEDS ORDERED: LIDOCAINE 5% TOPICAL PATCH TP SCH (17:15)
[2018-10-07] MEDS: LIDOCAINE PATCH REMOVAL MC SCH (22:14)
[2018-10-07] MEDS: THIAMINE HCL 100 MG TABLET (FP) PO SCH (22:14)
[2018-10-08] MEDS: IBUPROFEN 400 MG TABLET (FP) PO PRN ×3 (05:06→22:41)
[2018-10-08] MEDS: GABAPENTIN 400 MG CAPSULE (FP) PO SCH ×3 (05:06→22:37)
[2018-10-08] MEDS: METHOCARBAMOL 500 MG TABLET PO PRN ×3 (05:07→22:38)
[2018-10-08] MEDS: chlordiazePOXIDE HCL 25 MG CAPSULE PO SCH ×4 (05:07→22:37)
[2018-10-08] MEDS: BUPROPION HCL 150 MG, BUPROPION HCL 300 MG PO SCH (07:12)
[2018-10-08] MEDS ORDERED: METHADONE HCL 10 MG TABLET (FOR DETOX USE ONLY) PO ONE (10:00)
[2018-10-08] MEDS: NICOTINE 21 MG/24 HOURS TOPICAL PATCH TD SCH (10:22)
[2018-10-08] MEDS: LIDOCAINE 5% TOPICAL PATCH TP SCH (10:22)
[2018-10-08] MEDS: PANTOPRAZOLE 20 MG TABLET (FP) PO SCH (10:22)
[2018-10-08] MEDS: PRENATAL VITAMINS W/ FOLIC ACID TABLET (FP) PO SCH (10:22)
[2018-10-08] MEDS: METHYL SALICYLATE/MENTHOL OINT 30 GM TUBE TP SCH ×2 (10:23→22:36)
[2018-10-08] MEDS: hydrOXYzine PAMOATE 25 MG CAPSULE (FP) PO PRN (10:29)
[2018-10-08 10:54] LABS: ALBUMIN 3.6 g/dl (3.4-5.0); BILIRUBIN,TOTAL 0.2 mg/dL (0.2-1); BLOOD UREA NITROGEN 15.6 mg/dL (7-18); CALCIUM 8.6 mg/dL (8.5-10.1); CREATININE 0.8 mg/dL (0.55-1.3); POTASSIUM 4.3 mmol/L (3.5-5.1); TOT PROT 6.4 g/dl (6.4-8.2)
[2018-10-08 10:58] LABS: HEMATOCRIT 41.7 % (35.4-49); HEMOGLOBIN 14.1 GM/dL (11.7-16.9); MCH 30.6 pg (25.7-33.7); MCHC 33.8 g/dl (32.0-35.9); MEAN CELL VOLUME 90.7 fl (80-96); MEAN PLT VOLUME 12.6 fl (7.5-11.1); PLATELET COUNT 99 K/MM3 (134-434); WHITE BLOOD COUNT 6.2 K/mm3 (4.0-10.0)
[2018-10-08] MEDS: chlordiazePOXIDE HCL 25 MG CAPSULE PO PRN (13:55)
--- NOTE | 2018-10-08 15:22 | PN ---
[facility] CIWA - CIWA Score Nausea/Vomitin-No Nausea/No Vomiting Muscle Tremors: None Anxiety: 4-Mod. Anxious/Guarded Agitation: 3 Paroxysmal Sweats: 2 Orientation: 0-Oriented Tacttile Disturbances: 1-Very Mild Itch/Numbness Auditory Disturbances: 0-None Visual Disturbances: 1-Very Mild Sensitivity Headache: 0-None Present CIWA-Ar Total Score: 11 S COWS - Scale Resting Pulse: 1= ID 81-100 Sweatin= Chills/Flushing Restless Observation: 1= Difficult to Sit Still Pupil Size: 0= Normal to Room Light Bone or Joint Aches: 4=Acute Joint/Muscle Pain Runny Nose/ Eye Tearin= None GI Upset > 30mins: 0= None Tremor Observation of Outstretched Hands: 0= None Yawning Observation: 1= 1-2x During Session Anxiety or Irritability: 2=Irritable/Anxious Goose Flesh Skin: 0=Smooth Skin COWS Score: 10 S Progress Note (SOAP) Subjective: Body Aches, Anxious, Sweating. Objective: PATIENT A & O X 3, OBSERVED AMBULATING ON UNIT UNASSISTED. IN NO ACUTE DISTRESS. 10/08/18 15:23 Vital Signs Temperature 98.9 F 10/08/18 13:22 Pulse Rate 85 10/08/18 13:22 Respiratory Rate 18 10/08/18 13:22 Blood Pressure 107/73 10/08/18 13:22 O2 Sat by Pulse Oximetry (%) Laboratory Tests 10/08/18 10/08/18 10/08/18 07:30 07:30 07:30 WBC 6.2 RBC 4.60 Hgb 14.1 Hct 41.7 MCV 90.7 MCH 30.6 MCHC 33.8 RDW 14.0 Plt Count 99 L MPV 12.6 H Sodium 141 Potassium 4.3 Chloride 106 Carbon Dioxide 28 Anion Gap 6 L BUN 15.6 Creatinine 0.8 Est GFR (CKD-EPI)AfAm 129.51 Est GFR (CKD-EPI)NonAf 111.74 Random Glucose 110 H Calcium 8.6 Total Bilirubin 0.2 AST 28 ALT 57 Alkaline Phosphatase 80 Total Protein 6.4 Albumin 3.6 RPR Titer Nonreactive LABS NOTED. PATIENT HAS HAD LOW PLATELET LEVELS ON PREVIOUS ADMISSIONS. 10/08/18 15:23 Assessment: 10/08/18 15:24 WITHDRAWAL SYMPTOMS. THROMBOCYTOPENIA Plan: CONTINUE DETOX.
--- NOTE | 2018-10-08 17:35 | PN ---
S Progress Note Note: Pt states fell on backside when chair he was sitting in gave out-c/o back pain. Fully ambulatory without limitation PE Vital Signs - 24 hr 10/07/18 10/07/18 10/08/18 18:12 21:33 00:29 Temperature 98.0 F 97.5 F L Pulse Rate 61 89 Respiratory 18 18 18 Rate Blood Pressure 104/64 110/72 10/08/18 10/08/18 10/08/18 03:30 06:14 09:08 Temperature 97.6 F 98.3 F Pulse Rate 69 88 Respiratory 18 18 18 Rate Blood Pressure 119/83 113/71 10/08/18 10/08/18 13:22 17:17 Temperature 98.9 F 97.1 F L Pulse Rate 85 94 H Respiratory 18 20 Rate Blood Pressure 107/73 119/78 back- no injuries noted, minimal pain to palpation exercise encouraged, pain meds, Guero terrazas fall protocol #2
[2018-10-08] MEDS: ACETAMINOPHEN 325 MG TABLET (FP) PO PRN (17:51)
[2018-10-08] MEDS: LIDOCAINE PATCH REMOVAL MC SCH ×2 (22:36)
[2018-10-08] MEDS: THIAMINE HCL 100 MG TABLET (FP) PO SCH (22:37)
[2018-10-09] MEDS ORDERED: chlordiazePOXIDE HCL 10 MG CAPSULE PO PRN
[2018-10-09] MEDS: METHOCARBAMOL 500 MG TABLET PO PRN ×3 (06:08→22:31)
[2018-10-09] MEDS: chlordiazePOXIDE HCL 10 MG CAPSULE PO SCH ×4 (06:08→22:28)
[2018-10-09] MEDS: GABAPENTIN 400 MG CAPSULE (FP) PO SCH ×3 (06:08→22:28)
[2018-10-09] MEDS ORDERED: METHADONE HCL 10 MG TABLET (FOR DETOX USE ONLY) ONE (09:21)
[2018-10-09] MEDS ORDERED: METHADONE HCL 5 MG TABLET (FOR DETOX USE ONLY) ONE (09:22)
[2018-10-09] MEDS ORDERED: METHADONE (DETOX) 10 MG, METHADONE (DETOX) 5 MG PO ONE (10:00)
[2018-10-09] MEDS: BUPROPION HCL 150 MG, BUPROPION HCL 300 MG PO SCH (10:17)
[2018-10-09] MEDS: PRENATAL VITAMINS W/ FOLIC ACID TABLET (FP) PO SCH (10:18)
[2018-10-09] MEDS: METHYL SALICYLATE/MENTHOL OINT 30 GM TUBE TP SCH ×2 (10:18→22:28)
[2018-10-09] MEDS: NICOTINE 21 MG/24 HOURS TOPICAL PATCH TD SCH (10:19)
[2018-10-09] MEDS: LIDOCAINE 5% TOPICAL PATCH TP SCH (10:19)
[2018-10-09] MEDS: PANTOPRAZOLE 20 MG TABLET (FP) PO SCH (10:19)
[2018-10-09] MEDS: IBUPROFEN 400 MG TABLET (FP) PO PRN ×2 (10:21→18:00)
--- NOTE | 2018-10-09 12:41 | PN ---
[facility] CIWA - CIWA Score Nausea/Vomitin-No Nausea/No Vomiting Muscle Tremors: None Anxiety: 5 Agitation: 4-Moderately Restless Paroxysmal Sweats: No Perspiration Orientation: 0-Oriented Tacttile Disturbances: 1-Very Mild Itch/Numbness Auditory Disturbances: 0-None Visual Disturbances: 0-None Headache: 0-None Present CIWA-Ar Total Score: 10 S COWS - Scale Resting Pulse: 1= ME 81-100 Sweatin= No chills or Flushing Restless Observation: 1= Difficult to Sit Still Pupil Size: 0= Normal to Room Light Bone or Joint Aches: 4=Acute Joint/Muscle Pain Runny Nose/ Eye Tearin= None GI Upset > 30mins: 2= Nausea/Diarrhea Tremor Observation of Outstretched Hands: 0= None Yawning Observation: 1= 1-2x During Session Anxiety or Irritability: 4=Extreme Anxiety Goose Flesh Skin: 0=Smooth Skin COWS Score: 13 S Progress Note (SOAP) Subjective: Body Aches, Stomach Cramping, Diarrhea. Objective: PATIENT A & O X 3, OBSERVED AMBULATING ON UNIT UNASSISTED. IN NO ACUTE DISTRESS. 10/09/18 12:39 Vital Signs Temperature 97.3 F L 10/09/18 10:00 Pulse Rate 81 10/09/18 10:00 Respiratory Rate 18 10/09/18 10:00 Blood Pressure 122/77 10/09/18 10:00 O2 Sat by Pulse Oximetry (%) Laboratory Tests 10/08/18 10/08/18 10/08/18 07:30 07:30 07:30 WBC 6.2 RBC 4.60 Hgb 14.1 Hct 41.7 MCV 90.7 MCH 30.6 MCHC 33.8 RDW 14.0 Plt Count 99 L MPV 12.6 H Sodium 141 Potassium 4.3 Chloride 106 Carbon Dioxide 28 Anion Gap 6 L BUN 15.6 Creatinine 0.8 Est GFR (CKD-EPI)AfAm 129.51 Est GFR (CKD-EPI)NonAf 111.74 Random Glucose 110 H Calcium 8.6 Total Bilirubin 0.2 AST 28 ALT 57 Alkaline Phosphatase 80 Total Protein 6.4 Albumin 3.6 RPR Titer Nonreactive LABS NOTED. Assessment: 10/09/18 12:39 WITHDRAWAL SYMPTOMS. THROMBOCYTOPENIA. Plan: CONTINUE DETOX. INCREASE DAILY PO WATER INTAKE. PATIENT REPORTS POOR EFFECT FROM PRN PEPTO-BISMOL PO FOR RELIEF OF DIARRHEA. CHANGE TO PRN IMODIUM PO. PATIENT TO BE SENT TO [facility] FOR FURTHER MEDICAL EVALUATION OF BACK PAIN AFTER FALL THAT OCCURRED YESTERDAY. SEE FOLLOWING [facility] DETOX BHS PROGRESS NOTE.
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
--- NOTE | 2018-10-09 17:35 | PN ---
[facility] Progress Note Note: Patient returned from the ED following evaluation for acute low back pain after a fall yesterday. As per ED report, no fracture or trauma was noted on radiographic imaging. AP views of the lumbar spine showed 5 lumbar type vertebral bodies with scoliosis and degenerative changes. Lateral imaging showed a normal lordosis with degenerative changes. There is a Schmort's node formation on the superior aspect of L4. He received toradol with recommendation to take Motrin for further pain. Patient to see neurosurgery upon discharge. On exam, he continues to c/o pain, he has chronic pain and ambulates with a cane prior to fall. He is able to ambulate at his baseline. Plan- Continue current treatment modality for pain
[2018-10-09] MEDS: LOPERAMIDE HCL 2 MG CAPSULE PO PRN ×2 (18:01→22:59)
[2018-10-09] MEDS: THIAMINE HCL 100 MG TABLET (FP) PO SCH (22:28)
[2018-10-09] MEDS: LIDOCAINE PATCH REMOVAL MC SCH ×2 (22:28→22:42)
[2018-10-09] MEDS: MELATONIN 5 MG TABLETS PO PRN (22:29)
[2018-10-10] MEDS: LOPERAMIDE HCL 2 MG CAPSULE PO PRN ×2 (05:22→16:50)
[2018-10-10] MEDS: chlordiazePOXIDE HCL 10 MG CAPSULE PO SCH ×2 (05:23→16:47)
[2018-10-10] MEDS: IBUPROFEN 400 MG TABLET (FP) PO PRN ×2 (05:23→16:47)
[2018-10-10] MEDS: BUPROPION HCL 150 MG, BUPROPION HCL 300 MG PO SCH (05:23)
[2018-10-10] MEDS: METHOCARBAMOL 500 MG TABLET PO PRN (05:24)
[2018-10-10] MEDS: GABAPENTIN 400 MG CAPSULE (FP) PO SCH ×3 (07:14→22:06)
[2018-10-10] MEDS ORDERED: METHADONE HCL 10 MG TABLET (FOR DETOX USE ONLY) PO ONE (10:00)
[2018-10-10] MEDS: hydrOXYzine PAMOATE 25 MG CAPSULE (FP) PO PRN ×2 (10:15→22:06)
[2018-10-10] MEDS: PRENATAL VITAMINS W/ FOLIC ACID TABLET (FP) PO SCH (10:15)
[2018-10-10] MEDS: NICOTINE 21 MG/24 HOURS TOPICAL PATCH TD SCH (10:16)
[2018-10-10] MEDS: LIDOCAINE 5% TOPICAL PATCH TP SCH (10:16)
[2018-10-10] MEDS: METHYL SALICYLATE/MENTHOL OINT 30 GM TUBE TP SCH ×2 (10:17→22:35)
[2018-10-10] MEDS: PANTOPRAZOLE 20 MG TABLET (FP) PO SCH (10:19)
--- NOTE | 2018-10-10 13:14 | PN ---
[facility] CIWA - CIWA Score Nausea/Vomitin-No Nausea/No Vomiting Muscle Tremors: 2 Anxiety: 2 Agitation: 3 Paroxysmal Sweats: 1-Minimal Palms Moist Orientation: 0-Oriented Tacttile Disturbances: 0-None Auditory Disturbances: 0-None Visual Disturbances: 0-None Headache: 0-None Present CIWA-Ar Total Score: 8 BHS COWS - Scale Resting Pulse: 0= CO 80 or Below Sweatin= Chills/Flushing Restless Observation: 0= Sits Still Pupil Size: 0= Normal to Room Light Bone or Joint Aches: 1= Mild Discomfort Runny Nose/ Eye Tearin= Nasal Congestion GI Upset > 30mins: 1= Stomach Cramp Tremor Observation of Outstretched Hands: 2= Slight Tremor Visible Yawning Observation: 1= 1-2x During Session Anxiety or Irritability: 1=Feels Anxious/Irritable Goose Flesh Skin: 0=Smooth Skin COWS Score: 8 S Progress Note (SOAP) Subjective: 38 years old male admitted on 10/06/18 for acute alcohol and opiate withdrawal sx management doing well with libirum and methadone detox regimen less tremor ambulating on hallway social with peers in day room denies pain prefers to be discharged today team with counselor and nurse that the patient agrees to stay till tomorrow that he can received 10 mg methadone today and 5 mg methadone tomorrow reporting have diarrhea received one dose of pepto on 10/09/18 and one dose of imodium on 10/10/18 encourage hand washing and oral fluid Objective: 10/10/18 13:17 Vital Signs Temperature 98.1 F 10/10/18 09:33 Pulse Rate 79 10/10/18 09:33 Respiratory Rate 18 10/10/18 09:33 Blood Pressure 121/80 10/10/18 09:33 O2 Sat by Pulse Oximetry (%) Laboratory Last Values WBC 6.2 K/mm3 (4.0-10.0) 10/08/18 07:30 RBC 4.60 M/mm3 (4.00-5.60) 10/08/18 07:30 Hgb 14.1 GM/dL (11.7-16.9) 10/08/18 07:30 Hct 41.7 % (35.4-49) 10/08/18 07:30 MCV 90.7 fl (80-96) 10/08/18 07:30 MCH 30.6 pg (25.7-33.7) 10/08/18 07:30 MCHC 33.8 g/dl (32.0-35.9) 10/08/18 07:30 RDW 14.0 % (11.9-15.9) 10/08/18 07:30 Plt Count 99 K/MM3 (134-434) L 10/08/18 07:30 MPV 12.6 fl (7.5-11.1) H 10/08/18 07:30 Sodium 141 mmol/L (136-145) 10/08/18 07:30 Potassium 4.3 mmol/L (3.5-5.1) 10/08/18 07:30 Chloride 106 mmol/L (98-107) 10/08/18 07:30 Carbon Dioxide 28 mmol/L (21-32) 10/08/18 07:30 Anion Gap 6 MMOL/L (8-16) L 10/08/18 07:30 BUN 15.6 mg/dL (7-18) 10/08/18 07:30 Creatinine 0.8 mg/dL (0.55-1.3) 10/08/18 07:30 Est GFR (CKD-EPI)AfAm 129.51 10/08/18 07:30 Est GFR (CKD-EPI)NonAf 111.74 10/08/18 07:30 Random Glucose 110 mg/dL (74-106) H 10/08/18 07:30 Calcium 8.6 mg/dL (8.5-10.1) 10/08/18 07:30 Total Bilirubin 0.2 mg/dL (0.2-1) 10/08/18 07:30 AST 28 U/L (15-37) 10/08/18 07:30 ALT 57 U/L (13-61) 10/08/18 07:30 Alkaline Phosphatase 80 U/L (45-117) 10/08/18 07:30 Total Protein 6.4 g/dl (6.4-8.2) 10/08/18 07:30 Albumin 3.6 g/dl (3.4-5.0) 10/08/18 07:30 RPR Titer Nonreactive (NONREACTIVE) 08/16/19 07:30 lab noted Assessment: 10/10/18 13:17 alcohol and opiate withdrawal sx alert oriented x 3 denies pain ambulate freely on the unit Plan: continue librium and methadone detox regimen
[2018-10-10] MEDS: THIAMINE HCL 100 MG TABLET (FP) PO SCH (22:06)
[2018-10-10] MEDS: MELATONIN 5 MG TABLETS PO PRN (22:07)
[2018-10-10] MEDS: LIDOCAINE PATCH REMOVAL MC SCH ×2 (22:36)
[2018-10-11] MEDS ORDERED: chlordiazePOXIDE HCL 10 MG CAPSULE PO ONE (05:00)
[2018-10-11] MEDS: GABAPENTIN 400 MG CAPSULE (FP) PO SCH (05:09)
[2018-10-11] MEDS: IBUPROFEN 400 MG TABLET (FP) PO PRN (05:09)
[2018-10-11] MEDS: METHOCARBAMOL 500 MG TABLET PO PRN (05:09)
[2018-10-11] MEDS ORDERED: METHADONE HCL 5 MG TABLET (FOR DETOX USE ONLY) PO ONE (06:00)
[2018-10-11 06:50] VITALS: BP 111/8; PULSE 72; TEMP 98.6
[2018-10-11] MEDS: BUPROPION HCL 150 MG, BUPROPION HCL 300 MG PO SCH (07:10)
--- NOTE | 2018-10-11 14:11 | DS ---
[facility] Detox Discharge Summary Admission Date: 10/06/18 Discharge Date: 10/11/18 - History Present History: Alcohol Dependence, Opioid Dependence Additional Comments: 38 years old male admitted on 10/06/18for acute alcohol and opiate withdrawal sx management doing well with librium and methadone detox regimen no complication through out the detox stay unwitnessed fall on 10/08/18 treated in ER return to detox patient attempted to leave 10/10/18 interdisciplinary team approach patient decided to stay till detox regimen completion alert oriented x 3 no shortness of breath denies pain no dizziness speech clearly coherently aftercare [facility] Pertinent Past History: strong recommend the patient bring in medication list and lab report to aftercare appointment - Physical Exam Results Vital Signs: Vital Signs Temperature 98.6 F 10/11/18 06:50 Pulse Rate 72 10/11/18 06:50 Respiratory Rate 18 10/11/18 06:50 Blood Pressure 111/8 L 10/11/18 06:50 O2 Sat by Pulse Oximetry (%) Pertinent Admission Physical Exam Findings: alcohol and opiate withdrawal sx Laboratory Last Values WBC 6.2 K/mm3 (4.0-10.0) 10/08/18 07:30 RBC 4.60 M/mm3 (4.00-5.60) 10/08/18 07:30 Hgb 14.1 GM/dL (11.7-16.9) 10/08/18 07:30 Hct 41.7 % (35.4-49) 10/08/18 07:30 MCV 90.7 fl (80-96) 10/08/18 07:30 MCH 30.6 pg (25.7-33.7) 10/08/18 07:30 MCHC 33.8 g/dl (32.0-35.9) 10/08/18 07:30 RDW 14.0 % (11.9-15.9) 10/08/18 07:30 Plt Count 99 K/MM3 (134-434) L 10/08/18 07:30 MPV 12.6 fl (7.5-11.1) H 10/08/18 07:30 Sodium 141 mmol/L (136-145) 10/08/18 07:30 Potassium 4.3 mmol/L (3.5-5.1) 10/08/18 07:30 Chloride 106 mmol/L (98-107) 10/08/18 07:30 Carbon Dioxide 28 mmol/L (21-32) 10/08/18 07:30 Anion Gap 6 MMOL/L (8-16) L 10/08/18 07:30 BUN 15.6 mg/dL (7-18) 10/08/18 07:30 Creatinine 0.8 mg/dL (0.55-1.3) 10/08/18 07:30 Est GFR (CKD-EPI)AfAm 129.51 10/08/18 07:30 Est GFR (CKD-EPI)NonAf 111.74 10/08/18 07:30 Random Glucose 110 mg/dL (74-106) H 10/08/18 07:30 Calcium 8.6 mg/dL (8.5-10.1) 10/08/18 07:30 Total Bilirubin 0.2 mg/dL (0.2-1) 10/08/18 07:30 AST 28 U/L (15-37) 10/08/18 07:30 ALT 57 U/L (13-61) 10/08/18 07:30 Alkaline Phosphatase 80 U/L (45-117) 10/08/18 07:30 Total Protein 6.4 g/dl (6.4-8.2) 10/08/18 07:30 Albumin 3.6 g/dl (3.4-5.0) 10/08/18 07:30 RPR Titer Nonreactive (NONREACTIVE) 10/08/18 07:30 lab noted discuss healthy life style minimize avoidable injuries and bio psycho physical insults - Treatment Hospital Course: Detox Protocol Followed, Detoxed Safely, Responded well, Discharged Condition Good, Rehab Referral Accepted Patient has Accepted a Rehab Referral to: at [facility] - Medication Discharge Medications: Ambulatory Orders Bupropion HCl [Wellbutrin Xl -] 450 mg PO DAILY #60 tab.sr.24h 05/10/16 Omeprazole 20 mg PO DAILY #30 tab 07/29/16 Ibuprofen [Motrin -] 800 mg PO PRN 06/15/18 Meloxicam 10 mg PO BID 06/15/18 Gabapentin [Neurontin -] 1,200 mg PO TID 10/06/18 - Diagnosis (1) Alcohol dependence with uncomplicated withdrawal Status: Acute (2) Opioid dependence with withdrawal Status: Acute (3) GERD (gastroesophageal reflux disease) Status: Chronic Qualifiers: Esophagitis presence: without esophagitis Qualified Code(s): K21.9 - Gastro -esophageal reflux disease without esophagitis (4) Hypertension Status: Chronic Qualifiers: Hypertension type: essential hypertension Qualified Code(s): I10 - Essential (primary) hypertension (5) Nicotine dependence Status: Acute Qualifiers: Nicotine product type: cigarettes Substance use status: in withdrawal Qualified Code(s): F17.213 - Nicotine dependence, cigarettes, with withdrawal (6) Opioid dependence Status: Acute Qualifiers: Substance use status: uncomplicated Qualified Code(s): F11.20 - Opioid dependence, uncomplicated - AMA Did Patient Leave Against Medical Advice: No
== END 2018-10-11 08:48 | disposition home or self-care (01) | DRG 773 ==
LOC: YASAS 12:20 → Y3N 15:27
PROVIDERS: ADMIT Surgery; ATTEND Surgery
PROC: HZ2ZZZZ Detoxification Services for Substance Abuse Treatment (ICD-10-PCS; principal; 2018-10-06)
DX: F11.23 Opioid dependence with withdrawal (principal); F10.230 Alcohol dependence with withdrawal, uncomplicated; F12.20 Cannabis dependence, uncomplicated; F17.210 Nicotine dependence, cigarettes, uncomplicated; F32.9 Major depressive disorder, single episode, unspecified; F19.282 Other psychoactive substance dependence with psychoactive substance-induced sleep disorder; F19.280 Other psychoactive substance dependence with psychoactive substance-induced anxiety disorder; I10 Essential (primary) hypertension; K21.9 Gastro-esophageal reflux disease without esophagitis; D69.6 Thrombocytopenia, unspecified; R00.0 Tachycardia, unspecified; M54.5 Low back pain; R26.2 Difficulty in walking, not elsewhere classified; Z99.89 Dependence on other enabling machines and devices; W07.XXXA Fall from chair, initial encounter; Y93.89 Activity, other specified; Y92.238 Other place in hospital as the place of occurrence of the external cause
CPT/HCPCS: 36415; 80053; 85027; 86593; 93005; 93010

== ENCOUNTER 2018-10-09 13:38 | Emergency (ER) | payer OTHER ==
[2018-10-09 13:50] VITALS: BP 123/83; PULSE 95; TEMP 98.6; BMI 30.6
[2018-10-09] MEDS ORDERED: KETOROLAC TROMETHAMINE 60 MG/2 ML VIAL IM ONE (14:02)
[2018-10-09] MEDS ORDERED: KETOROLAC TROMETHAMINE 60 MG/2 ML VIAL ONE (14:04)
--- NOTE | 2018-10-09 14:24 | PDOC ---
History of Present Illness - General Chief Complaint: Injury Stated Complaint: BACK PAIN Time Seen by Provider: 10/09/18 13:57 - History of Present Illness Initial Comments: 10/09/18 14:19 38 y/o M w PMH of heroin abuse currently in detox presents for evaluation of LBP after a fall off a chair last night Mild posterior lateral right leg radicular symptoms no loss of b/b or saddle parenthesis Past History - Past Medical History Allergies/Adverse Reactions: Allergies Allergy/AdvReac Type Severity Reaction Status Date / Time No Known Allergies Allergy Verified 10/09/18 13:48 Home Medications: Ambulatory Orders Bupropion HCl [Wellbutrin Xl -] 450 mg PO DAILY #60 tab.sr.24h 05/10/16 Omeprazole 20 mg PO DAILY #30 tab 07/29/16 Ibuprofen [Motrin -] 800 mg PO PRN 06/15/18 Meloxicam 10 mg PO BID 06/15/18 Gabapentin [Neurontin -] 1,200 mg PO TID 10/06/18 Anemia: No Asthma: No Cancer: No Cardiac Disorders: No CVA: No COPD: No CHF: No Dementia: No Diabetes: No GI Disorders: No Disorders: No HTN: No Hypercholesterolemia: No Kidney Stones: No Liver Disease: No Seizures: No Thyroid Disease: No - Surgical History Abdominal Surgery: No Appendectomy: No Cardiac Surgery: No Cholecystectomy: No Lung Surgery: No Neurologic Surgery: No Orthopedic Surgery: No - Reproductive History Testicular Surgery: No - Immunization History Immunization Up to Date: Yes - Suicide/Smoking/Psychosocial Hx Smoking History: Current every day smoker Have you smoked in the past 12 months: Yes Number of Cigarettes Smoked Daily: 10 Cigars Per Day: 0 Information on smoking cessation initiated: No 'Breaking Loose' booklet given: 10/06/18 Hx Alcohol Use: Yes Drug/Substance Use Hx: Yes Substance Use Type: Alcohol, Heroin, Marijuana, Opiates Hx Substance Use Treatment: No Review of Systems - Review of Systems Musculoskeletal: Yes: Back Pain *Physical Exam - Vital Signs Last Vital Signs Temp Pulse Resp BP Pulse Ox 98.6 F 95 H 18 123/83 95 10/09/18 13:48 10/09/18 13:48 10/09/18 13:48 10/09/18 13:48 10/09/18 13:48 - Physical Exam Comments: 10/09/18 14:20 L/S Skin color and temperature are normal ROM limited No midline tenderness; mild R and L para lumbar muscular spasm and tenderness 5/5 strength B LE's No gross sensory motor deficits NVID ED Treatment Course - RADIOLOGY Radiology Studies Ordered: Category Date Time Status SPINE-LUMBAR ONLY [RAD] Stat Radiology 10/09/18 14:07 Ordered - Medications Given in the ED: ED Medications Discontinued Medications Generic Name Dose Route Start Last Admin Trade Name Freq PRN Reason Stop Dose Admin Ketorolac Tromethamine 60 mg 10/09/18 14:02 10/09/18 14:07 Toradol Injection - IM 10/09/18 14:03 60 mg ONCE ONE Administration Medical Decision Making - Medical Decision Making 10/09/18 14:21 No fx trauma on raidograph today, mild straightening of the lumbar lordosis, L4 L5 anteriorlolesthesis Motrin for pain f/u with neurosurgery 10/09/18 14:37 *DC/Admit/Observation/Transfer Diagnosis at time of Disposition: History of chronic back pain, Back pain - Discharge Dispostion Disposition: HOME Condition at time of disposition: Stable Decision to Admit order: No - Referrals Referrals: Boris Benavides MD, [facility] [Staff Physician] - - Patient Instructions Printed Discharge Instructions: Low Back Pain, DI for Low Back Pain Additional Instructions: Tylenol and Motrin as directed for pain, return to the emergency room if symptoms worsen, Follow up with neurosurgery in 1-2 days without fail for further evaluation and treatment options. - Post Discharge Activity
== END 2018-10-09 17:07 | disposition home or self-care (01) ==
LOC: JERFT 13:38
PROC: 3E023GC Introduction of Other Therapeutic Substance into Muscle, Percutaneous Approach (ICD-10-PCS; principal; 2018-10-09)
DX: M54.5 Low back pain (principal); G89.29 Other chronic pain; F17.210 Nicotine dependence, cigarettes, uncomplicated; F11.10 Opioid abuse, uncomplicated; W07.XXXA Fall from chair, initial encounter; Y93.9 Activity, unspecified; Y92.239 Unspecified place in hospital as the place of occurrence of the external cause
CPT/HCPCS: 72100-TC-FY; 96372; 99281-25